=== PATIENT | male | born 1955 | race Caucasian/White ===

== ENCOUNTER 2017-05-14 08:39 | Outpatient (CLI) | payer MEDICARE ==
--- NOTE | 2017-05-14 11:58 | CT ---
CT OF THE ABDOMEN AND PELVIS WITH IV CONTRAST: INDICATION: History of prostate cancer with elevated PSA. TECHNIQUE: Multiple CT images were obtained of the abdomen and pelvis with IV and enteric contrast. Axial coron al reformatted images were constructed from the raw data. No CT comparisons of the abdomen and pelvi s are available. FINDINGS: ABDOMEN: The lung bases are clear. There is nodular contour to the liver with slight hypertrophy of the caudate lobe and left hepatic lo be consistent with changes of cirrhosis. There is a tiny hypodensity within the right hepatic lobe m easuring 1.1 cm that has Hounsfield characteristics on the postcontrast image most consistent with a small cyst. The adrenal glands and pancreas are normal-appearing. The spleen demonstrates a tiny hypodensity wit hin its posterior segment that is subcentimeter in size that likely reflects a cyst. The spleen is e nlarged measuring 14.1 cm. The kidneys are normal-appearing. No free fluid is evident. There are mild vascular calcifications noted involving the abdominopelvic vasculature. There is an enlarged aortocaval lymph node measuring 1.2 cm on image 46 of series 2. There is an add itional mildly prominent lymph node seen anterior to the IVC within the lower abdomen on image 54 of series 2 measuring 9 mm. No pathologically enlarged lymph nodes are seen within the pelvis. PELVIS: There is postsurgical change of a complete prostatectomy. There is a suprapubic catheter in place. There are some calcifications seen in the region of the prostatic bed and pelvic floor which may be r elated to prior therapy or surgery. There is a fat-containing periumbilical hernia. Some wall thickening involving the rectum which was likely related to therapy changes. The partially opacified small and large bowel appear within viraj l limits. There is a normal appendix in the right lower quadrant. There is diffuse osteopenia. No definite acute osseous abnormality is evident. There are prominent Schmorl's nodes seen involving the L1 vertebral level along its superior aspect. IMPRESSION: 1. Mildly prominent lymph nodes seen within the retroperitoneum. The largest measures up to 1.2 cm. Lymph node spread of disease within this location cannot be entirely excluded. Would recommend fol lowup examination in 6-8 weeks. 2. Cirrhosis with findings of mild portal hypertension and splenomegaly. 3. Small right hepatic lobe cyst. 4. Suprapubic catheter. POS: [facility]
[2017-05-14] MEDS ORDERED: Iopamidol 370 76% 100 ML VIAL ONE (12:01)
== END 2017-05-14 08:40 | disposition home or self-care (01) ==
LOC: CT 08:39
PROVIDERS: ATTEND Internal Medicine Hematology & Oncology
DX: C61 Malignant neoplasm of prostate (principal); K74.60 Unspecified cirrhosis of liver; K76.89 Other specified diseases of liver; Z96.0 Presence of urogenital implants
CPT/HCPCS: 74177

== ENCOUNTER 2017-05-16 09:15 | Outpatient (CLI) | payer MEDICARE ==
--- NOTE | 2017-05-16 14:14 | NM ---
NUCLEAR MEDICINE BONE SCAN WHOLE BODY: (SKELETAL SCINTIGRAPHY) 05/16/2017 HISTORY: A 62-year-old male with a history of prostate cancer and rising serum PSA levels. COMPARISON: Bone scan of 06/16/2014 at the [facility]. TECHNIQUE: IV injection of [id number]: 32.0 mCi 3 hour delayed whole body skeletal scintigraphy in anterior and posterior views. FINDINGS: The is a new finding of a small, round focus of increased uptake at the right lateral calvarium. There is asymmetrically increased uptake at the right ankle, consistent with degenerative changes, un changed since the prior study. There are no other areas of asymmetrically increased bone uptake, but activity in the suprapubic cath eter and drainage bag obscures most of the right femur on the frontal view. 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 PANTERA Perez POS: [facility]
== END 2017-05-16 09:16 | disposition home or self-care (01) ==
LOC: NM 09:15
PROVIDERS: ATTEND Internal Medicine Hematology & Oncology
DX: C61 Malignant neoplasm of prostate (principal)
CPT/HCPCS: 78306; A9503

== ENCOUNTER 2019-07-07 09:56 | Outpatient (CLI) | payer MEDICARE ==
--- NOTE | 2019-07-07 16:18 | NM ---
WHOLE BODY BONE SCAN: HISTORY: Left-sided chest pain after fall RADIOPHARMACEUTICAL: 28.9 mCi technetium-99m MDP injected intravenously. COMPARISON: 05/16/2017 FINDINGS: There is increased uptake in the anterior left lower ribs consistent with adjacent rib fractures. The re is also uptake in an anterior upper right rib consistent with a rib fracture. Uptake is seen in the patient's urostomy bag. The bag leaked during the procedure and there is a smal l focus of uptake anteriorly near the midline which likely is contamination rather than a lesion in the lumbar spine or sacrum. Tracer excretion through the kidneys is within normal limits. IMPRESSION: Bilateral rib fractures
== END 2019-07-07 09:57 | disposition home or self-care (01) ==
LOC: NM 09:56
PROVIDERS: ATTEND Internal Medicine Hematology & Oncology
DX: C61 Malignant neoplasm of prostate (principal); C79.51 Secondary malignant neoplasm of bone; R97.20 Elevated prostate specific antigen [PSA]; S22.43XA Multiple fractures of ribs, bilateral, initial encounter for closed fracture
CPT/HCPCS: 78306; A9503

== ENCOUNTER 2019-09-23 08:06 | Outpatient (CLI) | payer MEDICARE ==
--- NOTE | 2019-09-23 13:22 | NM ---
NUCLEAR MEDICINE BONE SCAN WHOLE BODY: (Skeletal scintigraphy) DATE: 09/23/2019 HISTORY: 64-year-old male with prostate cancer and rising PSA levels. TECHNIQUE: IV injection of technetium 99m-MDP: 32.9 mCi 3 hour delayed whole body skeletal scintigraphy in anterior and posterior views. COMPARISON: 07/07/2019 FINDINGS: The 3 successive foci of significantly increased uptake in left anterior fourth, fifth, and sixth rib s representing fractures, now have decreased degree of uptake representing progression of healing. The same is true for the focus of increased uptake at the far anterior aspect of the right second rib at the costochondral junction. There are no new foci of asymmetrically increased uptake that are particularly suspicious for bone me tastases. There is again contamination of the urostomy bag, and therefore additional oblique views and lateral views of the pelvis were obtained. IMPRESSION: No compelling evidence of skeletal metastasis.
== END 2019-09-23 08:07 | disposition home or self-care (01) ==
LOC: NM 08:06
PROVIDERS: ATTEND Internal Medicine Hematology & Oncology
DX: C61 Malignant neoplasm of prostate (principal); C79.51 Secondary malignant neoplasm of bone
CPT/HCPCS: 78306; A9503

== ENCOUNTER 2019-09-24 08:39 | Outpatient (CLI) | payer MEDICARE ==
--- NOTE | 2019-09-24 14:40 | CT ---
CT OF THE ABDOMEN AND PELVIS WITH IV CONTRAST: INDICATION: A 64-year-old male with a history of prostate cancer and elevated PSA. COMPARISON: Prior CT of the abdomen and pelvis dated May 14, 2017. Bone scan from 09/23/2019 was also review ed. FINDINGS: Lung bases are clear. Again seen is a cirrhotic morphology to the liver. The right hepatic lobe cyst is slightly larger me asuring 1.3 cm. Tiny subcentimeter cyst is seen with segment measuring 4 mm. The spleen measures 13.4 cm. The pancreas and adrenal glands are normal-appearing. No enlarged lymp h nodes are evident. Visualized gallbladder is within normal limits. Right and left kidney appear within normal limits. No free fluid or enlarged lymph nodes are evident within the retroperitoneum. There are mild vascular calcifications involving the abdominopelvic vas culature. Since the comparison examination, there has been an interval cystectomy and establishment of a right lower quadrant urostomy. There is asymmetric soft tissue nodularity seen at the base of the anterior pelvis, near the cystectomy site, on image 79 of series 2 measuring 3.4 x 2.9 cm. The unopacified colon is largely within normal limits. Small bowel anastomosis appears within normal limits in the right lower quadrant of the abdomen. The small bowel is of normal caliber. There is diffuse osteopenia. There is scattered degenerative and osteoarthritic change. There is a small bone island within the left L4 vertebral level. Mild end plate irregularity at T12 and L1 is s imilar-appearing, likely related to Schmorl's nodes. No suspicious osteoblastic metastatic lesion is evident. IMPRESSION: 1. Interval cystectomy and prostatectomy with establishment of the right lower quadrant urostomy whe n compared to the prior CT examination of the abdomen and pelvis dated 05/14/2017. There is a right asymmetric soft tissue nodular prominence involving the anterior pelvic floor, near the surgical site of the cystectomy, measuring 3.4 x 2.9 cm. Recurrent soft tissue mass versus scar cannot be exclude d. Comparison with any interval cross-sectional CT evaluation of the abdomen and pelvis would be hel pful to document stability or progression of disease. 2. Cirrhotic morphology of the liver with mild portal hypertension. There is enlarging cyst within the right hepatic lobe measuring up to 1.3 cm. POS: [facility]
== END 2019-09-24 08:40 | disposition home or self-care (01) ==
LOC: SCSCT 08:39
PROVIDERS: ATTEND Internal Medicine Hematology & Oncology
DX: C61 Malignant neoplasm of prostate (principal); C79.51 Secondary malignant neoplasm of bone; Z90.6 Acquired absence of other parts of urinary tract; K76.6 Portal hypertension; K76.89 Other specified diseases of liver; Z98.890 Other specified postprocedural states
CPT/HCPCS: 74177; 82565

== ENCOUNTER 2020-01-14 12:51 | Day surgery (SDC) | payer MEDICARE, OTHER ==
[2020-01-14] MEDS ORDERED: PEGFILGRASTIM-JMDB 6 MG/0.6 ML SYRINGE ONE ×2 (12:54→12:55)
[2020-01-14 13:11] VITALS: BP 148/86; TEMP 97.7
== END 2020-01-14 13:11 | disposition home or self-care (01) ==
LOC: ONC/OP 12:51
PROVIDERS: ATTEND Internal Medicine Hematology & Oncology
DX: C61 Malignant neoplasm of prostate (principal); C79.51 Secondary malignant neoplasm of bone
CPT/HCPCS: 96372; Q5108

== ENCOUNTER 2020-02-03 10:17 | Day surgery (SDC) | payer MEDICARE ==
[~2020-02-03 10:17] MED LIST: DOCEtaxel 160 MG in Sodium Chloride 0.9% 250 ML 250 ML IVPB SCH; Dexamethasone Sod Phosphate 10 MG, Ondansetron 2MG/ML MDV 10 MG in Sodium Chloride 0.9%... IVPB SCH
[2020-02-03] MEDS ORDERED: Sodium Chloride 0.9% 20 ML ONE (10:25)
[2020-02-03 11:43] VITALS: BP 137/76; TEMP 96.5
== END 2020-02-03 12:44 | disposition home or self-care (01) ==
LOC: ONC/OP 10:17
PROVIDERS: ATTEND Internal Medicine Hematology & Oncology
DX: Z51.11 Encounter for antineoplastic chemotherapy (principal); C61 Malignant neoplasm of prostate; C79.51 Secondary malignant neoplasm of bone
CPT/HCPCS: 96375; 96413; J1100; J2405; J7050; J9171

== ENCOUNTER 2020-02-04 12:49 | Day surgery (SDC) | payer MEDICARE ==
[~2020-02-04 12:49] MED LIST changes: -DOCEtaxel 160 MG in Sodium Chloride 0.9% 250 ML 250 ML IVPB SCH; -Dexamethasone Sod Phosphate 10 MG, Ondansetron 2MG/ML MDV 10 MG in Sodium Chloride 0.9%... IVPB SCH; +PEGFILGRASTIM-JMDB 6 MG/0.6 ML SYRINGE SQ SCH
[2020-02-04 13:03] VITALS: BP 134/78; TEMP 97.8
== END 2020-02-04 13:05 | disposition home or self-care (01) ==
LOC: ONC/OP 12:49
PROVIDERS: ATTEND Internal Medicine Hematology & Oncology
DX: C61 Malignant neoplasm of prostate (principal); C79.51 Secondary malignant neoplasm of bone
CPT/HCPCS: 96372; Q5108

== ENCOUNTER 2020-02-24 09:24 | Day surgery (SDC) | payer MEDICARE ==
[~2020-02-24 09:24] MED LIST changes: +DOCEtaxel 160 MG in Sodium Chloride 0.9% 250 ML 250 ML IVPB SCH; +Dexamethasone Sod Phosphate 10 MG, Ondansetron 2MG/ML MDV 10 MG in Sodium Chloride 0.9%... IVPB SCH; -PEGFILGRASTIM-JMDB 6 MG/0.6 ML SYRINGE SQ SCH
[2020-02-24] MEDS ORDERED: Sodium Chloride 0.9% 20 ML ONE (09:57)
[2020-02-24 10:30] VITALS: BP 139/73; TEMP 98.4
[2020-02-24] MEDS ORDERED: FLU VACC QS2020-21(6MOS UP)/PF 60 MCG/0.5 ML SYRINGE IM ONE (10:30)
== END 2020-02-24 11:38 | disposition home or self-care (01) ==
LOC: ONC/OP 09:24
PROVIDERS: ATTEND Internal Medicine Hematology & Oncology
DX: Z51.11 Encounter for antineoplastic chemotherapy (principal); C61 Malignant neoplasm of prostate; C79.51 Secondary malignant neoplasm of bone
CPT/HCPCS: 96375; 96413; J1100; J2405; J7050; J9171

== ENCOUNTER 2020-02-25 12:44 | Day surgery (SDC) | payer MEDICARE ==
[~2020-02-25 12:44] MED LIST changes: -DOCEtaxel 160 MG in Sodium Chloride 0.9% 250 ML 250 ML IVPB SCH; -Dexamethasone Sod Phosphate 10 MG, Ondansetron 2MG/ML MDV 10 MG in Sodium Chloride 0.9%... IVPB SCH; +PEGFILGRASTIM-JMDB 6 MG/0.6 ML SYRINGE SQ SCH
[2020-02-25 13:10] VITALS: BP 125/78; TEMP 98.1
== END 2020-02-25 13:10 | disposition home or self-care (01) ==
LOC: ONC/OP 12:44
PROVIDERS: ATTEND Internal Medicine Hematology & Oncology
DX: Z51.89 Encounter for other specified aftercare (principal); C61 Malignant neoplasm of prostate; C79.51 Secondary malignant neoplasm of bone
CPT/HCPCS: 96372; Q5108

== ENCOUNTER 2020-03-08 03:18 | Emergency (ER) | payer MEDICARE ==
[2020-03-08] MEDS ORDERED: Morphine 4 MG/ML VIAL ONE ×2 (03:50→05:36)
[2020-03-08] MEDS ORDERED: Ondansetron PF 4 MG/2 ML Vial ONE (03:50)
[2020-03-08] MEDS ORDERED: Morphine 2 MG/ML VIAL ONE (03:50)
[2020-03-08 04:02] LABS: #Lymphocytes 0.8 thou/uL (1.20-3.40); #Monocytes 0.4 thou/uL (0.11-0.59); %Basophils 0.7 % (0.0-1.0); %Eosinophils 0.4 % (0.0-10.0); %Neutrophils 79.9 % (42.0-75.0); Hemoglobin 12.2 g/dL (14.0-18.0); Mean Corpuscular HGB CONC 33.7 g/dL (32.0-36.0); Mean Corpuscular Hemoglobin 30.6 pg (27.0-31.0); Mean Corpuscular Volume 90.7 fL (78.0-98.0); Mean Platelet Volume 8.5 fL (7.4-10.4); Platelet Count 79 thou/uL (130-400); RBC Distribution Width 14.3 % (11.5-14.5); White Blood Cell (WBC) Count 6.3 thou/uL (4.8-10.8)
[2020-03-08 04:14] LABS: ALT (SGPT) 14 U/L (8-55); AST (SGOT) 18 U/L (5-34); Albumin 3.5 g/dL (3.4-4.8); Alkaline Phosphatase 84 U/L (40-110); Anion Gap 12 mmol/L (10-20); BUN (Urea Nitrogen) 13 mg/dL (8.4-25.7); Bilirubin, Total 0.7 mg/dL (0.2-1.2); Calc. Creatinine Clearance 0 mL/min (70-130); Calcium 8.4 mg/dL (7.8-10.44); Carbon Dioxide 24 mmol/L (23-31); Chloride 107 mmol/L (98-107); Estimated GFR-MDRD 74; Globulin 2.5 g/dL (2.4-3.5); Glucose 145 mg/dL (80-115); Potassium 3.8 mmol/L (3.5-5.1); Sodium 139 mmol/L (136-145)
[2020-03-08] MEDS ORDERED: HYDROcodone/Acetaminophen 5/325 mg Tablet ONE (05:28)
--- NOTE | 2020-03-08 08:53 | CT ---
PRELIMINARY REPORT/[facility]/EMERGENCY AFTER HOURS PROCEDURE: EXAM: CT Lumbar Spine, without Contrast DATE/ TIME: 03/08/2020, 4:33 AM INDICATION: Low back pain. H/O prostate cancer TECHNIQUE: Helical CT imaging was performed through the lumbar spine with coronal and sagittal recon structions generated and reviewed. Exam was performed using one or more of the following dose reduct ion techniques: automated exposure control, adjustment of the mA and/or kV according to patient size , or use of iterative reconstruction technique. COMPARISON: None. CT LUMBAR SPINE FINDINGS: Numbering assumes five lumbar-type vertebral bodies. There is no acute fr acture. Mild anterior wedging of the L1 vertebral body is seen. A 2.5 x 1.5 x 2.4 cm lucency in the L3 centrum is noted and has the appearance of a hemangioma. A deep Schmorl's node within the superi or endplate of L4 is noted. Asymmetric sclerosis in the right lateral aspect of the L5 centrum measu res 2.0 x 0.7 x 1.0 cm and is nonspecific. Lower lumbar facet arthropathy is seen. Visualized sacra l segments are fatty replaced likely related to XRT in this patient with history of prostate cancer. Mild atherosclerotic calcified plaque of the abdominal aorta is seen. There is [id number] rig ht hydroureteronephrosis with partial visualization of what may be a diverting ileal conduit. IMPRESSION: 1. CT shows no acute osseous abnormality within the lumbar spine. 2. Degenerative spondylosis. 3. Fatty replacement within sacral segments. 4. Right hydroureteronephrosis, incompletely seen. ELECTRONICALLY SIGNED BY: Nicolas Gallagher DO Mar 08, 2020 5:10:35 AM CDT This report is intended for review by the ordering physician only, in accordance of law. If you recei ve this report in error, please call [facility] at [phone]. FINAL REPORT CT LUMBAR SPINE WITHOUT CONTRAST: Date: 03/08/2020 HISTORY: Low back pain. COMPARISON: Reference made to bone scan dated 09/23/2019. Reference also made to an abdomen and pelvis CT dated 0 09/24/2019. FINDINGS/IMPRESSION: Findings and impression are concordant with the preliminary report by [facility]. 1. Similar appearance to mildly enlarged right periaortic lymph nodes at level of L3, with a short a xis measurement of 11.0 mm. 2. New from the 09/24/2019 examination is a superior end plate Schmorl's node of L4, which could be a source of the patient's pain as this may an acute Schmorl's node. 3. Intraosseous hemangioma of L3, a benign finding. POS: [facility]
== END 2020-03-08 06:33 | disposition home or self-care (01) ==
LOC: ERS 03:18
DX: C61 Malignant neoplasm of prostate (principal); M54.5 Low back pain; I10 Essential (primary) hypertension; F41.9 Anxiety disorder, unspecified; Z79.899 Other long term (current) drug therapy
CPT/HCPCS: 72131; 80053; 84153; 85025; 96374; 96375; 96376; 99284; J2270; 36415; J2405

== ENCOUNTER 2020-03-16 09:05 | Day surgery (SDC) | payer MEDICARE ==
[~2020-03-16 09:05] MED LIST changes: +DOCEtaxel 160 MG in Sodium Chloride 0.9% 250 ML 250 ML IVPB SCH; +Dexamethasone Sod Phosphate 10 MG, Ondansetron 2MG/ML MDV 10 MG in Sodium Chloride 0.9%... IVPB SCH; -PEGFILGRASTIM-JMDB 6 MG/0.6 ML SYRINGE SQ SCH
== END 2020-03-16 12:41 | disposition home or self-care (01) ==
LOC: ONC/OP 09:05
PROVIDERS: ATTEND Internal Medicine Hematology & Oncology
DX: Z51.11 Encounter for antineoplastic chemotherapy (principal); C61 Malignant neoplasm of prostate; C79.51 Secondary malignant neoplasm of bone
CPT/HCPCS: 36415; 80053; 82248; 83615; 84100; 84550; 96375; 96413; J1100; J2405; J7050; J9171

== ENCOUNTER 2020-03-17 13:19 | Day surgery (SDC) | payer MEDICARE ==
[~2020-03-17 13:19] MED LIST changes: -DOCEtaxel 160 MG in Sodium Chloride 0.9% 250 ML 250 ML IVPB SCH; -Dexamethasone Sod Phosphate 10 MG, Ondansetron 2MG/ML MDV 10 MG in Sodium Chloride 0.9%... IVPB SCH; +PEGFILGRASTIM-JMDB 6 MG/0.6 ML SYRINGE SQ SCH
[2020-03-17 13:43] VITALS: BP 139/85
== END 2020-03-17 13:42 | disposition home or self-care (01) ==
LOC: ONC/OP 13:19
PROVIDERS: ATTEND Internal Medicine Hematology & Oncology
DX: Z51.89 Encounter for other specified aftercare (principal); C61 Malignant neoplasm of prostate; C79.51 Secondary malignant neoplasm of bone
CPT/HCPCS: 96372; Q5108

== ENCOUNTER 2020-03-25 22:40 | Emergency (ER) | payer MEDICARE ==
[2020-03-25] MEDS ORDERED: Morphine 4 MG/ML VIAL ONE (23:18)
[2020-03-25] MEDS ORDERED: Ondansetron PF 4 MG/2 ML Vial ONE (23:18)
[2020-03-25] MEDS ORDERED: Lorazepam 2 MG/ML VIAL ONE (23:18)
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
[2020-03-26 00:51] LABS: ALT (SGPT) 13 U/L (8-55); AST (SGOT) 20 U/L (5-34); Albumin 3.1 g/dL (3.4-4.8); Alkaline Phosphatase 86 U/L (40-110); Anion Gap 17 mmol/L (10-20); BUN (Urea Nitrogen) 13 mg/dL (8.4-25.7); Bilirubin, Total 0.9 mg/dL (0.2-1.2); Calc. Creatinine Clearance 0 mL/min (70-130); Calcium 8.2 mg/dL (7.8-10.44); Carbon Dioxide 18 mmol/L (23-31); Chloride 103 mmol/L (98-107); Estimated GFR-MDRD 58; Globulin 2.5 g/dL (2.4-3.5); Glucose 122 mg/dL (80-115); Potassium 3.2 mmol/L (3.5-5.1); Protein, Total 5.6 g/dL (5.8-8.1); Sodium 135 mmol/L (136-145)
== END 2020-03-26 01:13 | disposition home or self-care (01) ==
LOC: ERS 22:40
DX: M54.5 Low back pain (principal); E86.0 Dehydration; F41.9 Anxiety disorder, unspecified; V89.2XXA Person injured in unspecified motor-vehicle accident, traffic, initial encounter
CPT/HCPCS: 36415; 72131; 80053; 96374; 96375; J2060; J2270; J2405

== ENCOUNTER 2020-04-06 10:36 | Day surgery (SDC) | payer MEDICARE ==
[~2020-04-06 10:36] MED LIST changes: +DOCEtaxel 160 MG in Sodium Chloride 0.9% 250 ML 250 ML IVPB SCH; +Dexamethasone Sod Phosphate 10 MG, Ondansetron 2MG/ML MDV 10 MG in Sodium Chloride 0.9%... IVPB SCH; -PEGFILGRASTIM-JMDB 6 MG/0.6 ML SYRINGE SQ SCH
[2020-04-06] MEDS ORDERED: Sodium Chloride 0.9% 20 ML ONE (11:14)
[2020-04-06 11:43] VITALS: BP 99/63
== END 2020-04-06 13:06 | disposition home or self-care (01) ==
LOC: ONC/OP 10:36
PROVIDERS: ATTEND Internal Medicine Hematology & Oncology
DX: Z51.11 Encounter for antineoplastic chemotherapy (principal); C61 Malignant neoplasm of prostate; C79.51 Secondary malignant neoplasm of bone
CPT/HCPCS: 36415; 80053; 82248; 83615; 84100; 84153; 84550; 96375; 96413; J1100; J2405; J7050; J9171

== ENCOUNTER 2020-04-07 12:58 | Day surgery (SDC) | payer MEDICARE ==
[~2020-04-07 12:58] MED LIST changes: -DOCEtaxel 160 MG in Sodium Chloride 0.9% 250 ML 250 ML IVPB SCH; -Dexamethasone Sod Phosphate 10 MG, Ondansetron 2MG/ML MDV 10 MG in Sodium Chloride 0.9%... IVPB SCH; +PEGFILGRASTIM-JMDB 6 MG/0.6 ML SYRINGE SQ SCH
== END 2020-04-07 13:52 | disposition home or self-care (01) ==
LOC: ONC/OP 12:58
PROVIDERS: ATTEND Internal Medicine Hematology & Oncology
DX: Z51.89 Encounter for other specified aftercare (principal); C61 Malignant neoplasm of prostate; C79.51 Secondary malignant neoplasm of bone
CPT/HCPCS: 96372; Q5108

== ENCOUNTER 2020-04-23 18:39 | Inpatient (IN) | payer MEDICARE ==
[~2020-04-23 18:39] MED LIST changes: +Iopamidol-370 76% 500 ML 1 ML ONE; -PEGFILGRASTIM-JMDB 6 MG/0.6 ML SYRINGE SQ SCH
[2020-04-23 19:16] LABS: #Lymphocytes 1.4 thou/uL (1.20-3.40); #Monocytes 0.7 thou/uL (0.11-0.59); %Basophils 0.5 % (0.0-1.0); %Eosinophils 0.2 % (0.0-10.0); %Lymphocytes 16.7 % (21.0-51.0); %Monocytes 8.1 % (0.0-10.0); %Neutrophils 74.5 % (42.0-75.0); Hemoglobin 10.6 g/dL (14.0-18.0); Mean Corpuscular HGB CONC 32.5 g/dL (32.0-36.0); Mean Corpuscular Hemoglobin 30.2 pg (27.0-31.0); Mean Corpuscular Volume 92.9 fL (78.0-98.0); Mean Platelet Volume 7.4 fL (7.4-10.4); Platelet Count 182 thou/uL (130-400); RBC Distribution Width 16.6 % (11.5-14.5); White Blood Cell (WBC) Count 8.1 thou/uL (4.8-10.8)
[2020-04-23] MEDS ORDERED: Fentanyl 100 MCG/2 ML VIAL ONE (19:17)
[2020-04-23] MEDS ORDERED: Cefepime 2 GM VIAL ONE (19:17)
[2020-04-23] MEDS ORDERED: Sodium Chloride 0.9% 100 ML ONE (19:18)
[2020-04-23 19:23] LABS: INR-International Normal Ratio 1.1; PTT 29.2 sec (22.9-36.1); Prothrombin Time 14.8 sec (12.0-14.7)
[2020-04-23 19:24] LABS: D-Dimer Test 3.06 *mcg/mL (0.27-0.43)
[2020-04-23 19:37] LABS: ALT (SGPT) 9 U/L (8-55); AST (SGOT) 20 U/L (5-34); Albumin 3.1 g/dL (3.4-4.8); Alkaline Phosphatase 82 U/L (40-110); Anion Gap 18 mmol/L (10-20); BUN (Urea Nitrogen) 23 mg/dL (8.4-25.7); Bilirubin, Total 0.6 mg/dL (0.2-1.2); CK (CPK) 45 U/L (30-200); Calc. Creatinine Clearance 0 mL/min (70-130); Calcium 8.7 mg/dL (7.8-10.44); Carbon Dioxide 18 mmol/L (23-31); Chloride 108 mmol/L (98-107); Estimated GFR-MDRD 57; Globulin 2.2 g/dL (2.4-3.5); Glucose 243 mg/dL (80-115); Lipase 32 U/L (8-78); Potassium 5.1 mmol/L (3.5-5.1); Protein, Total 5.3 g/dL (5.8-8.1); Sodium 139 mmol/L (136-145)
[2020-04-23] MEDS ORDERED: Vancomycin 1 GM/200 ML BAG ONE (19:50)
--- NOTE | 2020-04-23 20:54 | RAD ---
PORTABLE CHEST: Date: 04-23-2020 PROVIDED CLINICAL HISTORY: Fever, shortness of breath. FINDINGS: Comparison is made with 01-19-2020. Cardiac and mediastinal silhouette is within normal limits. No focal consolidation, pleural fluid, or pneumothorax apparent. Remote, healed left clavicular fracture. IMPRESSION: No evidence for an acute cardiopulmonary process. POS: [facility]
--- NOTE | 2020-04-23 21:51 | CT ---
CT OF THE CHEST WITH CONTRAST: Comparison: CT abdomen/pelvis 09-24-2019, CTA chest 11-04-2018 History: History of prostate cancer with a Ross II bag being treated with chemotherapy. Patient has i ncreasing blood coming out of urostomy. Metastatic disease. Technique: Multiple contiguous axial images obtained in a CTA Of the chest with contrast, performed f or pulmonary embolism protocol. 3D and MIP reformations. 3D MIP reformats and direct coronal reforma ts were performed. FINDINGS: The pulmonary arteries are well opacified without filling defects to suggest pulmonary emboli. The he art is normal in size. There is hypertrophy in the left ventricular wall. There is a small pericardi al effusion. No mik or mediastinal lymphadenopathy are appreciated. There is a 6 mm stable nodule in the posterior aspect of the left lower lobe. No other pulmonary nodu les are seen. No pneumothorax or pleural effusions are seen. No focal infiltrates are seen. There is a round subcutaneous mass in the right thoracic posterior soft tissues which is associated w ith skin surface and relatively stable when compared to the prior examination. No adenopathy is seen. Degenerative changes are seen in the spine. Please see dedicated abdominal CT for findings in the low er diaphragm. IMPRESSION: 1. No evidence of pulmonary thromboembolism. 2. Stable lower lobe pulmonary nodule. 3. Small pericardial effusion. POS: [facility]
[2020-04-23] MEDS ORDERED: Labetalol HCl 100 MG/20 ML VIAL ONE (21:55)
[2020-04-23] MEDS ORDERED: Lorazepam 2 MG/ML VIAL ONE (22:04)
--- NOTE | 2020-04-23 22:13 | CT ---
CT ABDOMEN AND PELVIS WITH IV CONTRAST: Date: 04/23/2020 PROVIDED CLINICAL HISTORY: History of prostate cancer, blood in urostomy bag. FINDINGS: Comparison made with study dated 09/24/2019. There is a partially visualized noncalcified left lower lobe pulmonary nodule measuring at least 4.0 mm. Peripheral nodular contour of the liver compatible with cirrhosis redemonstrated. Hepatic cysts are a gain seen. Changes of prior cystectomy with urinary diversion and urostomy noted. There is right hydronephrosis and right hydroureter, mild. There is gas within the left renal collecting system, without evidence f or hydronephrosis or hydroureter on the left. The ileal conduit appears nondilated. There is a normal appearance to the spleen, pancreas, and adrenal glands. There is no bowel dilatation, localized inflammatory fat stranding, free fluid, or free air apparent. There is no evidence for appendicitis. There is no evidence for regional lymph node enlargement. Soft tissue density at the anterior aspect of the pelvis posterior to the symphysis pubis redemonstrated, not significantly changed with respect to prior. IMPRESSION: 1. Mild right hydronephrosis and hydroureter, presumably on the basis of reflux and not unusual in p atients with urinary diversion. Collecting system gas on the left is also presumably on the basis of ileal conduit. 2. Changes of cirrhosis are redemonstrated. 3. Nonspecific at least 4.0 mm left lower lobe pulmonary nodule. POS: [facility]
[2020-04-23 22:14] LABS: Hemoglobin 9.3 g/dL (14.0-18.0); Platelet Count 175 thou/uL (130-400)
[2020-04-24] MEDS ORDERED: Ondansetron ODT 4 MG TAB SL PRN (00:15)
[2020-04-24] MEDS ORDERED: Ondansetron PF 4 MG/2 ML Vial IVP PRN (00:15)
[2020-04-24] MEDS: Lactated Ringer's 1,000 ML IV SCH ×2 (00:53→10:53)
--- NOTE | 2020-04-24 01:54 | PDOC.HHP ---
Hospitalist HPI - History of Present Illness sob, urostomy bleeding History of Present Illness: Case of an 65y/o male with a pmhx of prostate CA, liver cirrhosis due to hep c, hld and hypertension who comes to hospital due to due to general weakness general malaise and urostomy bleeding. patient states he was on his usuals state of health until this weekend when he started with the symptoms. he does reports that before feeling unwell and urostomy becoming bloody he noted his urine output decreased and becoming cloudy and coca cola colored. he states this has happened before when it gets infected but that it has never become bloody as this time. patient currently on chemo his las tx was on he is followed by Dr. Schmidt. he denies any fever chills nausea vomiting diarriha abd pain or chest pain, he did complain of dyspnea especially on exertion. Hospitalist ROS - Review of Systems All other systems reviewed; all pertinent +/- noted in HPI/Subj - Medication Medications: Active Medications Generic Name Dose Route Start Last Admin Trade Name Freq PRN Reason Stop Dose Admin Lactated Ringer's 1,000 mls @ 120 mls/hr 04/24/20 00:15 04/24/20 00:53 Lactated Ringer's IV 04/24/20 09:30 1,000 mls .[id number] [facility] Administration Hospitalist History - Past Surgical History Other Surgical History: ilesotomy divergance bladder removed prostatectomy - Family History Family History: reports: no pertinent history - Social History Smoking Status: Never smoker Alcohol: reports: None Drugs: reports: none - Exam General Appearance: ill appearing Eye: PERRL, anicteric sclera ENT: normocephalic atraumatic, no oropharyngeal lesions Neck: supple, symmetric, no JVD, no thyromegaly Heart: no murmur, no gallops, no rubs, normal peripheral pulses Heart - other findings: tachycardic Respiratory: CTAB, no wheezes, no rales, no ronchi Gastrointestinal: soft, non-tender, non-distended, normal bowel sounds Gastrointestinal - other findings: urostomy with cloudy bloody urine Extremities: no cyanosis, no clubbing, no edema Skin: normal turgor, no lesions, no rashes Neurological: cranial nerve grossly intact, normal sensation to touch, no weakness Musculoskeletal: normal tone, normal strength, no muscle wasting Psychiatric: normal affect, normal behavior, A&O x 3 Hospitalist Results - Labs Result Diagrams: 04/23/20 22:02 04/23/20 19:00 Lab results: WBC 8.1 thou/uL (4.8-10.8) 04/23/20 19:00 Hgb 9.3 g/dL (14.0-18.0) L 04/23/20 22:02 Hct 28.7 % (42.0-52.0) L 04/23/20 22:02 MCV 92.9 fL (78.0-98.0) 04/23/20 19:00 Plt Count 175 thou/uL (130-400) 04/23/20 22:02 Neutrophils % 74.5 % (42.0-75.0) 04/23/20 19:00 Sodium 139 mmol/L (136-145) 04/23/20 19:00 Potassium 5.1 mmol/L (3.5-5.1) 04/23/20 19:00 Chloride 108 mmol/L (98-107) H 04/23/20 19:00 Carbon Dioxide 18 mmol/L (23-31) L 04/23/20 19:00 BUN 23 mg/dL (8.4-25.7) 04/23/20 19:00 Creatinine 1.28 mg/dL (0.7-1.3) 04/23/20 19:00 Glucose 243 mg/dL (80-115) H 04/23/20 19:00 Lactic Acid 3.3 mmol/L (0.5-2.2) H 04/23/20 22:02 Calcium 8.7 mg/dL (7.8-10.44) 04/23/20 19:00 Total Bilirubin 0.6 mg/dL (0.2-1.2) 04/23/20 19:00 AST 20 U/L (5-34) 04/23/20 19:00 ALT 9 U/L (8-55) 04/23/20 19:00 Alkaline Phosphatase 82 U/L (40-110) 04/23/20 19:00 Creatine Kinase 45 U/L (30-200) 04/23/20 19:00 Troponin I 0.011 ng/mL (< 0.028) 04/23/20 19:00 B-Natriuretic Peptide 34.7 pg/mL (0-100) 04/23/20 19:00 Serum Total Protein 5.3 g/dL (5.8-8.1) L 04/23/20 19:00 Albumin 3.1 g/dL (3.4-4.8) L 04/23/20 19:00 Lipase 32 U/L (8-78) 04/23/20 19:00 Hospitalist H&P A/P - Problem (1) Sepsis Code(s): A41.9 - SEPSIS, UNSPECIFIED ORGANISM Status: Acute (2) Complication of urostomy Code(s): N99.528 - OTHER COMP OF INCONTINENT EXTERNAL STOMA OF URINARY TRACT Status: Acute (3) Prostate cancer Code(s): C61 - MALIGNANT NEOPLASM OF PROSTATE Status: Acute (4) HTN (hypertension) Code(s): I10 - ESSENTIAL (PRIMARY) HYPERTENSION Status: Acute (5) Diabetes Code(s): E11.9 - TYPE 2 DIABETES MELLITUS WITHOUT COMPLICATIONS Status: Acute - Plan Plan: Case of an 65y/o male with the stated pmhx who presents due to blood in his urostomy bag urostomay bag bleeding - hx of multiple days bleeding into urostomy bag - last recorded hg was 12, arrived 10 then recheck again and it was 9 - was transufused 1 prbc at ed - npo after midnight in case any urologic procedure is needed - will check hg q 6 hrs -likely related to severe infection, seems to have improve after starting abx sepsis secondary to c uti - elevated tachycardic + elevated LA 3.3 + hypotension with likely source of infection urostomy site - given vanc + cefepime and ED - will continue with levaquin - f/u blood cultures - f/u LA - no acute or concerning findings in cta/cxr/abd ct htn - holding htn in setting of sirs and bleeding prostate ca - on chemo - last tx 04/06/20 - onoclogy consult dm -ac+ss
[2020-04-24 01:59] VITALS: BMI 34.2
[2020-04-24] MEDS: Sodium Chloride 0.9% 1,000 ML IV SCH ×4 (03:09→19:58)
[2020-04-24] MEDS ORDERED: HumaLOG 300 UNITS/3 ML VIAL SC PRN (03:40)
[2020-04-24] MEDS ORDERED: Dextrose 5% in Water 1,000 ML IV PRN (03:40)
[2020-04-24] MEDS ORDERED: Dextrose 50% Abboject 50 ML SYRINGE SLOW IVP PRN (03:40)
[2020-04-24 04:24] LABS: Lactic Acid 3.2 mmol/L (0.5-2.2)
[2020-04-24 04:25] LABS: SARS-CoV-2 MS2 Positive; SARS-CoV-2 N Gene Negative; SARS-CoV-2 S Gene Negative; SARS-CoV-2 by NAA Not Detected (NotDetected); SARS-CoV-2 orf1ab Negative
[2020-04-24 06:33] LABS: Hemoglobin 9.4 g/dL (14.0-18.0)
[2020-04-24] MEDS ORDERED: Vancomycin 1 GM in Premix Bag 1 BAG IVPB SCH (08:00)
[2020-04-24] MEDS: Vancomycin HCl 1.25 GM in Sodium Chloride 0.9% 250 ML 250 ML IVPB SCH ×2 (10:50→19:59)
--- NOTE | 2020-04-24 18:50 | PDOC.HOSPP ---
- Subjective Encounter Date: 04/24/20 Encounter Time: 18:40 Subjective: f/u for sepsis due to UTI/urostomy bleeding s/p 1u PRBC's. Receiving Vancomycin/Levaquin currently. Overall feels better. - Objective Vital Signs & Weight: Vital Signs (12 hours) Temp Pulse Ox 04/24/20 12:07 98 04/24/20 08:05 97.7 F 04/24/20 08:00 97 Weight Weight 249 lb 4 oz Most Recent Monitor Data Heart Rate from ECG 109 NIBP 104/76 NIBP BP-Mean 85 Respiration from ECG 22 SpO2 100 I&O: 04/23/20 04/24/20 04/25/20 06:59 06:59 06:59 Intake Total 2250 1520 Output Total 325 600 Balance 1925 920 Result Diagrams: 04/24/20 06:02 04/23/20 19:00 Additional Labs: Accuchecks 04/24/20 04/24/20 18:22 05:49 POC Glucose 159 H 120 H Microbiology 04/23/20 19:08 Venous blood - Right Arm Blood Culture - Preliminary Specimen has been received and culture in progress. No Growth to date. 04/23/20 19:08 Venous blood - Left Arm Blood Culture - Preliminary Specimen has been received and culture in progress. No Growth to date. Laboratory Tests 04/23/20 04/23/20 04/23/20 19:00 19:00 22:02 Hgb 10.6 L D-Dimer 3.06 H Lactic Acid 3.3 H SARS-CoV-2 (PCR) 04/23/20 04/23/20 04/24/20 22:02 23:45 03:42 Hgb 9.3 L D-Dimer Lactic Acid 3.2 H SARS-CoV-2 (PCR) Not Detected Radiology Reviewed by me: Yes (CTA chest - no PE) EKG Reviewed by me: Yes (Tele - Sinus tachycardia) Hospitalist ROS - Medication Medications: Active Medications Generic Name Dose Route Start Last Admin Trade Name Freq PRN Reason Stop Dose Admin Sodium Chloride 1,000 mls @ 70 mls/hr 04/24/20 02:00 04/24/20 03:09 Normal Saline 0.9% IV 1,000 mls .[id number] [facility] Administration Levofloxacin 750 mg/ Device 150 mls @ 100 mls/hr 04/24/20 02:00 04/24/20 03:10 IVPB 150 mls Q24HR [facility] Administration Vancomycin HCl 1.25 gm/ Sodium 250 mls @ 166.667 mls/hr 04/24/20 08:00 04/24/20 10:50 Chloride IVPB 250 mls 0800,1999 [facility] Administration - Exam General Appearance: NAD, awake alert Eye: PERRL, anicteric sclera ENT: normocephalic atraumatic, no oropharyngeal lesions Neck: supple, symmetric, no JVD, no thyromegaly, no lymphadenopathy Heart: no murmur, no gallops, no rubs, normal peripheral pulses Heart - other findings: S1, S2 tachycardic Respiratory: CTAB, no wheezes, no rales, no ronchi, normal chest expansion Gastrointestinal: soft, non-tender, non-distended, normal bowel sounds Gastrointestinal - other findings: urostomy in place, clear urine in Phan bag Extremities: no cyanosis, no clubbing, no edema Skin: normal turgor Neurological: cranial nerve grossly intact, no new deficit Musculoskeletal: normal tone, normal strength, no muscle wasting Psychiatric: normal affect, A&O x 3 Hosp A/P (1) Sepsis due to gram-negative UTI Code(s): A41.50 - GRAM-NEGATIVE SEPSIS, UNSPECIFIED; N39.0 - URINARY TRACT INFECTION, SITE NOT SPECIFIED Status: Acute Plan: Continue Levaquin/Vancomycin pending Ucx results, IVF's (2) Acute blood loss anemia Code(s): D62 - ACUTE POSTHEMORRHAGIC ANEMIA Status: Acute Plan: s/p 1u PRBC's, serial H/H monitoring, avoid anticoagulation and NSAIDs (3) Complication of urostomy Code(s): N99.528 - OTHER COMP OF INCONTINENT EXTERNAL STOMA OF URINARY TRACT Status: Acute Plan: Secondary to UTI, continue IV abx, monitor outputs, appreciate Urology assistance (4) Metabolic acidosis Code(s): E87.2 - ACIDOSIS Status: Acute (5) Prostate cancer Code(s): C61 - MALIGNANT NEOPLASM OF PROSTATE Status: Chronic Plan: Will resume outpt chemotherapy after completing abx course - Plan continue antibiotics, social services coordinator, out of bed/ambulate, DVT proph w/SCDs Stable currently Continue Levaquin/Vancomycin Continue IVF's Await final Ucx results Appreciate Urology assistance Avoid anticoagulants AM lab: BMP, CBC
[2020-04-24] MEDS ORDERED: Cyclobenzaprine 10 MG TAB PO PRN (18:58)
[2020-04-24] MEDS ORDERED: traMADol HCl 50 MG TAB PO PRN (18:59)
[2020-04-24] MEDS ORDERED: Melatonin 3 MG TAB PO PRN (19:11)
--- NOTE | 2020-04-24 20:03 | CON ---
DATE OF CONSULTATION: 04/24/2020 REASON FOR CONSULTATION: Hematuria. CHIEF COMPLAINT: Blood in urostomy bag. HISTORY OF PRESENT ILLNESS: This is a 65-year-old male with a history of radical prostatectomy with Dr. Lizama with complicated bladder neck contracture eventually undergoing simple cystectomy with ileal conduit. His prostate cancer has advanced and he is now on chemotherapy since December. He tells me that beginning last or Friday, he began to have blood in his urine and over the weekend noted clots in the bag, at which point, he decided to present to the hospital yesterday. He also developed weakness and malaise. He denies flank pain or fevers. He also denies nausea, diarrhea, or abdominal pain. PAST MEDICAL HISTORY: Prostate cancer, hepatitis C with cirrhosis, hyperlipidemia, hypertension, diabetes. PAST SURGICAL HISTORY: Robotic prostatectomy, simple cystectomy with ileal conduit. FAMILY HISTORY: Reviewed, noncontributory. SOCIAL HISTORY: Nonsmoker. No substance abuse. REVIEW OF SYSTEMS: 12-point review of systems is negative except as mentioned in my HPI. PHYSICAL EXAMINATION: GENERAL: No acute distress. Conversant. HEENT: Head, normocephalic and atraumatic. Extraocular movements intact. Sclerae anicteric. NECK: Supple. Trachea midline. RESPIRATORY: Unlabored breathing. Symmetric chest expansion. HEART: Tachycardic. Regular rhythm. ABDOMEN: Soft, nontender, nondistended. No flank tenderness. : Urostomy somewhat stenotic, but draining clear urine at this point with drainage of bag connected to the urostomy appliance. EXTREMITIES: Without clubbing, cyanosis, or edema. SKIN: Warm and dry. NEUROLOGIC: Alert and oriented x3. PSYCHIATRIC: Normal mood and affect. LABORATORY DATA: Reviewed. Lactate 3.3 on admission last night. Creatinine 1.28. Hemoglobin 10.6 on admission, 9.3 and 9.4 on serial checks overnight. Microbiology; blood cultures pending. I do not see that a urine culture was sent. CT abdomen and pelvis reviewed. Mild right hydronephrosis with small focus of air in the left kidney. ASSESSMENT AND PLAN: Sepsis secondary to urinary tract infection, gross hematuria, now resolved; presence of urostomy; history of cystectomy; and prostatectomy. Agree with vancomycin and Levaquin. I expect that this is likely bacteria from his conduit enabled by immunosuppression. If urine culture was not sent and he improves clinically with negative blood cultures, we will transition to Levaquin alone. There is no need for serial hemoglobin and hematocrit checks as his urine has already cleared and his hemoglobin was stable overnight. Repeat labs in the morning. I will continue to follow and arrange outpatient followup at discharge. Job ID: [id number]
--- NOTE | 2020-04-24 22:00 | CON ---
DATE OF CONSULTATION: REASON FOR CONSULT: Prostate cancer. HISTORY OF PRESENT ILLNESS: Mr. Castillo is a 65-year-old gentleman, who has metastatic prostate cancer, he was diagnosed in 2017. He has progressed through Xtandi and Zytiga and is currently receiving chemotherapy with IV Taxotere. He received cycle 5 on April 06. He did receive Neulasta support. He has been tolerating treatment well. He has bladder outlet obstruction and requiring suprapubic catheter and cystectomy. Over the last several days, he began to have increasing blood in his urine to the point where he clogged up and was presented to the emergency room yesterday. He sees Dr. Reich. He was felt to have urinary tract infections, so he was started on IV vancomycin and cefepime. He did have an elevated lactic acid at 3.3. He has been getting IV hydration and is feeling much better today. He is due for cycle 6 of chemo this week. PAST MEDICAL HISTORY: 1. Metastatic prostate cancer. 2. Cirrhosis from hepatitis C. 3. Chronic low back pain. 4. Diabetes mellitus type 2. 5. Hypertension. 6. High cholesterol. 7. Arthritis. 8. Hemorrhoids. 9. Urethral stricture, status post cystectomy. 10. Osteoporosis. PAST SURGICAL HISTORY: Radical prostatectomy, shoulder repair, cystectomy with urethrotomy. FAMILY HISTORY: Sibling has colon, bladder, and prostate cancer. SOCIAL HISTORY: , has one child. Lives alone. Former smoker. No alcohol or illicit drug use. ALLERGIES: NO KNOWN DRUG ALLERGIES. HOME MEDICATIONS: 1. Amlodipine. 2. Benazepril. 3. Celecoxib. 4. Dexamethasone. 5. Flexeril. 6. Lipitor. 7. Melatonin. 8. Zofran. 9. Protonix. REVIEW OF SYSTEMS: Positive for fatigue, back pain, and blood in urine. PHYSICAL EXAMINATION: VITAL SIGNS: Temperature is 97.7, pulse is 102, respiratory rate 23, blood pressure is 94/61. He is 97% on room air. GENERAL: A well-developed, well-nourished male, in no acute distress. HEENT: Normocephalic, atraumatic. Pupils are equal and reactive to light. NECK: Supple. CV: Regular rate and rhythm. He is tachycardic. LUNGS: Clear anterior. ABDOMEN: Obese, there is urostomy in place with yellow urine to a Phan catheter. EXTREMITIES: No clubbing or cyanosis. SKIN: No rash. NEUROLOGICAL: Nonfocal. PERTINENT LABORATORY DATA AND X-RAYS: Current WBCs 8.1, hemoglobin 9.4, hematocrit 29.1, platelet count is 182,000, 75% neutrophils, 17% lymphocytes. PT is 14.8, INR is 1.1, PTT is 29.2. D-dimer is 3. Sodium 139, potassium 5.1, chloride 108, CO2 is 18, BUN is 23, creatinine 1.28, lactic acid 3.2, calcium 8.7, bilirubin 0.6, AST is 20, ALT is 9, alkaline phosphatase is 82, creatine kinase is 45. Troponin negative. BNP is 34. Serum total protein 5.3, albumin 3.1, globulin 2.2, lipase 32. COVID PCR negative. CT angio showed no evidence of pulmonary embolism. He has a stable pulmonary nodule and a small pleural effusion. ASSESSMENT: 1. Anemia secondary to hematuria and chemotherapy. 2. Prostate cancer, on chemotherapy. 3. Hematuria. 4. Possible sepsis. DISCUSSION: Patient has been started on antibiotics. He is feeling better. He remains tachycardic with a blood pressure in the 90s. Dr. Reich has seen the patient. His hematuria appears to be resolved. He has responded well to Taxotere IV chemotherapy and is due for a dose this week, that will be postponed at least until next week. We will follow his CBC. I discussed this with the patient who is in agreement. We will discuss with Dr. Schmidt. We will follow along with his hospitalization. Thank you for the consult. Job ID: [id number]
[2020-04-24] MEDS ORDERED: Lidocaine 2% Viscous Solution 10 ML, Aluminum & Magnesium Hydroxide 30 ML SSW SCH (23:45)
[2020-04-25 04:16] LABS: #Lymphocytes 0.7 thou/uL (1.20-3.40); #Monocytes 0.5 thou/uL (0.11-0.59); #Neutrophils 2.8 thou/uL (1.40-6.50); %Basophils 0.5 % (0.0-1.0); %Eosinophils 0.8 % (0.0-10.0); %Lymphocytes 18.1 % (21.0-51.0); %Monocytes 11.7 % (0.0-10.0); Hemoglobin 8.6 g/dL (14.0-18.0); Mean Corpuscular HGB CONC 33.1 g/dL (32.0-36.0); Mean Corpuscular Hemoglobin 30.7 pg (27.0-31.0); Mean Corpuscular Volume 92.7 fL (78.0-98.0); Mean Platelet Volume 7.3 fL (7.4-10.4); Platelet Count 118 thou/uL (130-400); Platelet Morphology Comment Appears Decreased; RBC Distribution Width 17.1 % (11.5-14.5)
[2020-04-25 04:17] LABS: Anion Gap 14 mmol/L (10-20); BUN (Urea Nitrogen) 17 mg/dL (8.4-25.7); Calc. Creatinine Clearance 139 mL/min (70-130); Calcium 7.6 mg/dL (7.8-10.44); Carbon Dioxide 17 mmol/L (23-31); Chloride 113 mmol/L (98-107); Estimated GFR-MDRD 89; Glucose 116 mg/dL (80-115); Potassium 4.5 mmol/L (3.5-5.1); Sodium 139 mmol/L (136-145)
[2020-04-25 07:42] LABS: Vancomycin, Trough 18.6 ug/mL
[2020-04-25] MEDS: Sodium Chloride 0.9% 1,000 ML IV SCH (10:02)
[2020-04-25] MEDS: Vancomycin HCl 1.25 GM in Sodium Chloride 0.9% 250 ML 250 ML IVPB SCH (11:50)
[2020-04-25 12:06] VITALS: TEMP 97.4
--- NOTE | 2020-04-25 13:37 | PRG ---
DATE OF SERVICE: 04/25/2020 SUBJECTIVE: No acute events overnight. No further hematuria. He denies fevers, flank pain, or nausea. OBJECTIVE: GENERAL: Afebrile, mild tachycardia overnight. Good urine output, bowel movement x1. No acute distress. LUNGS: Unlabored breathing. Symmetric chest expansion. HEART: Regular rate and rhythm. ABDOMEN: Soft, nontender, nondistended. Conduit healthy. Draining clear urine. EXTREMITIES: No peripheral edema. SKIN: Warm and dry. LABORATORY DATA: Reviewed. Hemoglobin 8.6. Creatinine 0.87. Both blood cultures, no growth. Urine culture seems to not have been sent. ASSESSMENT AND PLAN: Hospital day 3, sepsis secondary to urinary tract infection, pyelonephritis, history of cystectomy and prostatectomy with ileal conduit. Given his negative blood cultures, we can likely transition to oral Levaquin for two weeks outpatient. Given his clinical improvement, I do not think any further imaging is warranted. He will follow up with me in 4 weeks. Job ID: [id number]
--- NOTE | 2020-04-26 02:13 | DIS ---
DATE OF ADMISSION: 04/23/2020 DATE OF DISCHARGE: 04/25/2020 DISCHARGE DIAGNOSES: 1. Sepsis secondarily to urinary tract infection, organism not identified. 2. Acute blood loss anemia, status post 1 unit of packed red blood cells due to urostomy bleeding, resolved. 3. Metabolic acidosis, mild. 4. Prostate carcinoma, status post prostatectomy with urostomy. 5. Hypertension, stable. CONSULTATIONS: Dr. Reich with Urology Service. Medical Oncology Service. PERTINENT LABORATORY AND X-RAY FINDINGS: Carbon dioxide level ranged between 17 to 18. Lactic acid level ranged between 3.2 to 3.3. BNP 35. Lipase 32. CBC showed a white blood cell count ranging between 4.0 to 8.1, hemoglobin ranged between 8.6 to 10.6, platelet count ranged between 118 to 182. D-dimer 3.06. COVID-19 PCR not detected, 04/23/2020. Blood cultures x2 dated 04/23/2020, showed no growth at 48 hours. Urine culture not performed. Portable chest x-ray dated 04/23/2020, showed no acute cardiopulmonary process. CT of the abdomen and pelvis dated 04/23/2020, showed mild right hydroureteronephrosis. Cirrhotic changes of the liver. CT angiogram of the chest dated 04/23/2020, showed no evidence for pulmonary embolus. Stable lower lobe pulmonary nodule. HOSPITAL COURSE: The patient initially presented with urostomy bleeding in the context of known prostate cancer status post prostatectomy with urostomy placement. The patient had noted increased blood from the urostomy as well as cloudy urine over the last 4 to 5 days prior to this evaluation. The patient is also currently receiving chemotherapy, most recently 04/06/2020 for prostate cancer. The patient met sepsis criteria and was placed on broad-spectrum IV antibiotic therapy with vancomycin and cefepime. The patient also received IV fluids and general sepsis protocol. Urine culture was not performed, however, blood cultures showed no growth as stated previously. The patient was evaluated by the Urology Service due to urostomy bleeding. However, recommendations were to continue therapy directed at potential urinary tract infection as the underlying source. The patient's urine cleared with supportive management, IV fluids, and IV antibiotics. The patient did receive 1 unit of packed red blood cells with stable hemoglobins throughout the remainder of the hospital course. Overall, the patient did remain clinically stable during the hospital course, tolerating regular oral intake with stable vital signs. I have examined the patient at the time of discharge and discussed followup instructions. The patient verbalizes understanding and agreement, ready for discharge on 04/25/2020. DISCHARGE MEDICATIONS: 1. Amlodipine/benazepril 10/20 mg one tablet p.o. daily. 2. Celebrex 200 mg p.o. daily. 3. dexamethasone p.r.n. 4. Flexeril 10 mg p.o. t.i.d. p.r.n. 5. FOLFIRI per Medical Oncology. 6. Lipitor 10 mg p.o. at bedtime. 7. Melatonin 10 mg p.o. at bedtime p.r.n. 8. Protonix 40 mg p.o. daily. 9. Taxotere q.21 days. 10. Levaquin 750 mg p.o. daily x14 days. FOLLOWUP: The patient may follow up with Dr. Michael Reich. The patient will follow up with Dr. Siddhartha Wu for primary care services. CONDITION ON DISCHARGE: Stable. ACTIVITY: Ad-jess. DIET: Heart healthy. CODE STATUS: Full. DISPOSITION: To home, 04/25/2020. TIME SPENT: Total time preparing and coordinating discharge, 32 minutes. Job ID: [id number]
== END 2020-04-25 17:08 | disposition home or self-care (01) | DRG 698 ==
LOC: ERS 18:39 → IMCU/EMU 22:39
PROVIDERS: ADMIT Internal Medicine; ATTEND Internal Medicine
PROC: 30233N1 Transfusion of Nonautologous Red Blood Cells into Peripheral Vein, Percutaneous Approach (ICD-10-PCS; principal; 2020-04-24)
DX: N99.521 Infection of incontinent external stoma of urinary tract (principal); A41.50 Gram-negative sepsis, unspecified; D62 Acute posthemorrhagic anemia; E87.2 Acidosis; N12 Tubulo-interstitial nephritis, not specified as acute or chronic; Y83.9 Surgical procedure, unspecified as the cause of abnormal reaction of the patient, or of later complication, without mention of misadventure at the time of the procedure; F41.9 Anxiety disorder, unspecified; K74.60 Unspecified cirrhosis of liver; E78.5 Hyperlipidemia, unspecified; G89.29 Other chronic pain; M54.9 Dorsalgia, unspecified; C61 Malignant neoplasm of prostate; I10 Essential (primary) hypertension; E11.9 Type 2 diabetes mellitus without complications; Z92.21 Personal history of antineoplastic chemotherapy; Z79.899 Other long term (current) drug therapy; Z79.51 Long term (current) use of inhaled steroids; Z98.890 Other specified postprocedural states; Z90.79 Acquired absence of other genital organ(s); Z87.891 Personal history of nicotine dependence; M81.0 Age-related osteoporosis without current pathological fracture; M19.90 Unspecified osteoarthritis, unspecified site; D64.81 Anemia due to antineoplastic chemotherapy; Z20.828 Contact with and (suspected) exposure to other viral communicable diseases; N99.520 Hemorrhage of incontinent external stoma of urinary tract
CPT/HCPCS: 36415; 36416; 36430; 71045; 71275; 74177; 80048; 80053; 80202; 82550; 83605; 83690; 83880; 84484; 85014; 85018; 85025; 85379; 85610; 85730; 86850; 86900; 86901; 87040; 87635; 93005; 96365; 96374; 96375; J0692; J1956; J2060; J3010; J3370; J3490; J7050; P9016; Q9967; U0003

== ENCOUNTER 2020-05-04 10:03 | Day surgery (SDC) | payer MEDICARE ==
[~2020-05-04 10:03] MED LIST changes: +DOCEtaxel 160 MG in Sodium Chloride 0.9% 250 ML 250 ML IVPB SCH; +Dexamethasone 10 MG, Ondansetron 2MG/ML MDV 10 MG in Sodium Chloride 0.9% 50 ML IVPB SCH; +Dexamethasone Sod Phosphate 10 MG, Ondansetron 2MG/ML MDV 10 MG in Sodium Chloride 0.9%... IVPB SCH; -Iopamidol-370 76% 500 ML 1 ML ONE
[2020-05-04] MEDS ORDERED: Sodium Chloride 0.9% 20 ML ONE (10:32)
[2020-05-04 10:40] VITALS: BP 129/79; TEMP 97.8
== END 2020-05-04 12:24 | disposition home or self-care (01) ==
LOC: ONC/OP 10:03
PROVIDERS: ATTEND Internal Medicine Hematology & Oncology
DX: Z51.11 Encounter for antineoplastic chemotherapy (principal); C61 Malignant neoplasm of prostate; C79.51 Secondary malignant neoplasm of bone
CPT/HCPCS: 36415; 80053; 82248; 83615; 84100; 84153; 84550; 96375; 96413; J1100; J2405; J7050; J9171

== ENCOUNTER 2020-05-05 10:48 | Day surgery (SDC) | payer MEDICARE, OTHER ==
[~2020-05-05 10:48] MED LIST changes: -DOCEtaxel 160 MG in Sodium Chloride 0.9% 250 ML 250 ML IVPB SCH; -Dexamethasone 10 MG, Ondansetron 2MG/ML MDV 10 MG in Sodium Chloride 0.9% 50 ML IVPB SCH; -Dexamethasone Sod Phosphate 10 MG, Ondansetron 2MG/ML MDV 10 MG in Sodium Chloride 0.9%... IVPB SCH; +PEGFILGRASTIM-JMDB 6 MG/0.6 ML SYRINGE SQ SCH
[2020-05-05 13:38] VITALS: BP 138/70; TEMP 98
== END 2020-05-05 13:39 | disposition home or self-care (01) ==
LOC: ONC/OP 10:48
PROVIDERS: ATTEND Internal Medicine Hematology & Oncology
DX: Z51.89 Encounter for other specified aftercare (principal); C61 Malignant neoplasm of prostate; C79.51 Secondary malignant neoplasm of bone
CPT/HCPCS: 96372; Q5108

== ENCOUNTER 2020-05-15 19:32 | Emergency (ER) | payer MEDICARE, OTHER ==
[2020-05-15] MEDS ORDERED: Ondansetron PF 4 MG/2 ML Vial ONE (21:58)
[2020-05-15] MEDS ORDERED: Lorazepam 2 MG/ML VIAL ONE ×2 (21:58→23:21)
[2020-05-15] MEDS ORDERED: Morphine 4 MG/ML VIAL ONE (21:58)
[2020-05-15 22:10] LABS: Hemoglobin 10.2 g/dL (14.0-18.0); Mean Corpuscular HGB CONC 32.4 g/dL (32.0-36.0); Mean Corpuscular Hemoglobin 28.2 pg (27.0-31.0); Mean Corpuscular Volume 87.1 fL (78.0-98.0); RBC Distribution Width 17.4 % (11.5-14.5); Red Blood Cell (RBC) Count 3.61 mill/uL (4.70-6.10); White Blood Cell (WBC) Count 9.6 thou/uL (4.8-10.8)
[2020-05-15 22:13] LABS: ALT (SGPT) Less than 7 U/L (8-55); AST (SGOT) 9 U/L (5-34); Alkaline Phosphatase 78 U/L (40-110); Anion Gap 14 mmol/L (10-20); BUN (Urea Nitrogen) 13 mg/dL (8.4-25.7); Bilirubin, Total 0.8 mg/dL (0.2-1.2); Calc. Creatinine Clearance 0 mL/min (70-130); Calcium 7.6 mg/dL (7.8-10.44); Carbon Dioxide 23 mmol/L (23-31); Chloride 107 mmol/L (98-107); Globulin 2.2 g/dL (2.4-3.5); Glucose 146 mg/dL (80-115); Potassium 3.5 mmol/L (3.5-5.1); Protein, Total 5.2 g/dL (5.8-8.1); Sodium 140 mmol/L (136-145)
[2020-05-15 22:31] LABS: #Lymphocytes 0.8 thou/uL (1.20-3.40); #Monocytes 0.5 thou/uL (0.11-0.59); #Neutrophils 8.2 thou/uL (1.40-6.50); %Basophils 0.3 % (0.0-1.0); %Eosinophils 0.2 % (0.0-10.0); %Lymphocytes 8.7 % (21.0-51.0); %Monocytes 5.1 % (0.0-10.0); %Neutrophils 85.7 % (42.0-75.0); Mean Platelet Volume 9.2 fL (7.4-10.4); Platelet Count 102 thou/uL (130-400); Platelet Morphology Comment Appears Decreased
[2020-05-15] MEDS ORDERED: HYDROcodone/Acetaminophen 10/325 mg Tablet ONE (23:21)
== END 2020-05-15 23:32 | disposition home or self-care (01) ==
LOC: ERS 19:32
DX: M54.5 Low back pain (principal); I10 Essential (primary) hypertension
CPT/HCPCS: 80053; 85025; 93005; 96374; 96375; 96376; J2060; J2270; J2405

== ENCOUNTER 2020-05-29 09:28 | Outpatient (CLI) | payer MEDICARE, OTHER ==
--- NOTE | 2020-05-29 13:31 | NM ---
NUCLEAR MEDICINE BONE SCAN WHOLE BODY: (Skeletal scintigraphy) DATE: 05/29/2020 HISTORY: 65-year-old male with prostate cancer presents with low back pain. COMPARISON: Bone scan of 09/23/2019 TECHNIQUE: IV injection of technetium 99m-[id number]: 32.5 mCi 3 hour delayed whole body skeletal scintigraphy in anterior and posterior views. FINDINGS: There is a new finding of diffusely increased uptake horizontally across the entire width of one of t he upper lumbar-type vertebrae, approximately L2. The previously seen uptake at costochondral junctions consistent with rib fractures, has almost compl etely resolved. The focus of increased uptake at the left AC joint consistent with DJD, is again noted. There are no other, new foci of suspicious uptake in the rest of the skeleton. Again noted is the activity throughout the right-sided ileal pouch and urostomy, but now there is a n ew finding of increased uptake throughout the right ureter and right renal collecting system. IMPRESSION: 1) new finding of diffusely increased uptake across one of the upper lumbar vertebrae, approximately L2. This could represent an acute or subacute compression fracture, either osteoporotic or pathologic. Consider further evaluation with MRI of the lumbar spine with and without contrast. 2) new finding of asymmetrically very increased uptake throughout the right ureter and right renal co llecting system. This could represent either partial obstruction or reflux at the ureteral diversion surgical site.
== END 2020-05-29 09:29 | disposition home or self-care (01) ==
LOC: NM 09:28
PROVIDERS: ATTEND Internal Medicine Hematology & Oncology
DX: C61 Malignant neoplasm of prostate (principal); C79.51 Secondary malignant neoplasm of bone; Q62.8 Other congenital malformations of ureter
CPT/HCPCS: 78306; A9503

== ENCOUNTER 2020-06-09 03:21 | Emergency (ER) | payer MEDICARE, OTHER ==
[2020-06-09] MEDS ORDERED: Ketorolac Tromethamine 30 MG/ML VIAL ONE (03:53)
[2020-06-09] MEDS ORDERED: Morphine 4 MG/ML VIAL ONE (03:53)
[2020-06-09 04:51] LABS: ALT (SGPT) Less than 7 U/L (8-55); AST (SGOT) 16 U/L (5-34); Albumin 2.9 g/dL (3.4-4.8); Alkaline Phosphatase 82 U/L (40-110); Anion Gap 13 mmol/L (10-20); BUN (Urea Nitrogen) 9 mg/dL (8.4-25.7); Bilirubin, Total 0.5 mg/dL (0.2-1.2); Calc. Creatinine Clearance 0 mL/min (70-130); Carbon Dioxide 25 mmol/L (23-31); Chloride 108 mmol/L (98-107); Globulin 2.3 g/dL (2.4-3.5); Glucose 133 mg/dL (80-115); Potassium 3.2 mmol/L (3.5-5.1); Protein, Total 5.2 g/dL (5.8-8.1); Sodium 143 mmol/L (136-145)
[2020-06-09 04:57] LABS: #Eosinphils 0.1 thou/uL (0.0-0.7); #Lymphocytes 0.8 thou/uL (1.20-3.40); #Monocytes 0.4 thou/uL (0.11-0.59); #Neutrophils 2.3 thou/uL (1.40-6.50); %Basophils 0.3 % (0.0-1.0); %Eosinophils 3.7 % (0.0-10.0); %Lymphocytes 21.5 % (21.0-51.0); %Monocytes 11.4 % (0.0-10.0); Mean Corpuscular HGB CONC 31.4 g/dL (32.0-36.0); Mean Corpuscular Hemoglobin 27.2 pg (27.0-31.0); Mean Corpuscular Volume 86.7 fL (78.0-98.0); Mean Platelet Volume 9.3 fL (7.4-10.4); Platelet Count 108 thou/uL (130-400); RBC Distribution Width 17.9 % (11.5-14.5); Red Blood Cell (RBC) Count 3.69 mill/uL (4.70-6.10); White Blood Cell (WBC) Count 3.6 thou/uL (4.8-10.8)
--- NOTE | 2020-06-09 08:14 | CT ---
CT OF THE ABDOMEN AND PELVIS WITH IV CONTRAST: INDICATION: A 65-year-old male with a history of back pain and L3 compression fracture with complaints of back sp asms and pain with movement and diarrhea. COMPARISON: Prior exam dated 04/23/2020. FINDINGS: There are small bilateral pleural effusions. Small left lower lobe pulmonary nodule measuring 4 mm i s stable. Findings of cirrhosis with portal hypertension and scattered ascites is similar. Small hypodensities right hepatic lobe are stable. Gallbladder, pancreas, and adrenal glands appear within normal limit s. Mild right hydronephrosis persists. Ileoconduit and right lower quadrant urostomy is stable. Po st procedural change of the mid to distal small bowel is stable. There is some accentuated wall thic kness of the ascending colon and cecum as well as portions of the sigmoid colon and rectum which can be related to decompression. Bladder is surgically absent. Visualized stomach and duodenum appear w ithin normal limits. Mild wedging of L1 is stable. There is a new superior end plate compression fr acture of L2 when compared to the prior CT evaluation that is stable to the comparison MRI dated 06/05. Mild end plate compression abnormalities involving L3 and L4 are stable. IMPRESSION: 1. Worsening mild diffuse ascites. Findings of cirrhosis and portal hypertension. 2. Small bilateral pleural effusions and bibasilar atelectasis. 3. Stable mild right hydronephrosis likely related to urinary reflux from the patient's ileoconduit. 4. Stable acute mild superior end plate wedge compression abnormality of L2. Stable chronic ricky alissa abnormalities of L1, L3, and L4. POS: [facility]
[2020-06-09] MEDS ORDERED: Iopamidol-370 76% 500 ML 1 ML ONE (10:27)
== END 2020-06-09 07:20 | disposition home or self-care (01) ==
LOC: ERS 03:21
DX: M62.830 Muscle spasm of back (principal); G89.29 Other chronic pain; I10 Essential (primary) hypertension; Z79.899 Other long term (current) drug therapy
CPT/HCPCS: 74177; 80053; 85025; 85652; 86140; 96374; 96375; J1885; J2270; Q9967

== ENCOUNTER 2020-06-20 09:47 | Inpatient (IN) | payer MEDICARE, OTHER ==
[2020-06-20] MEDS ORDERED: Iopamidol-370 76% 500 ML 1 ML ONE (10:12)
[2020-06-20] MEDS ORDERED: Cefepime 2 GM VIAL ONE (10:15)
[2020-06-20] MEDS ORDERED: Acetaminophen 500 MG TAB ONE (10:15)
[2020-06-20 10:28] LABS: Bilirubin Negative (Negative); Blood, Urine Large (Negative); Glucose, Urine (Dipstick) Negative (Negative); Ketone, Urine Negative (Negative); Leukocyte Large (Negative); Nitrite Negative (Negative); Protein, Urine (Dipstick) 100 mg/dL (Neg-Trace); Urobilinogen 0.2 mg/dL (Less than 2)
[2020-06-20 10:31] LABS: Clarity Hazy (Clear)
[2020-06-20 10:36] LABS: Bacteria/HPF 2+ HPF (None Seen); Squamous Epithelial None Seen HPF (0-3)
[2020-06-20] MEDS ORDERED: VANCOMYCIN 2 GRAM/400 ML BAG 2 GM in Premix Bag 1 BAG IVPB SCH (10:45)
[2020-06-20 11:07] LABS: ALT (SGPT) Less than 7 U/L (8-55); AST (SGOT) 21 U/L (5-34); Albumin 3.2 g/dL (3.4-4.8); Alkaline Phosphatase 68 U/L (40-110); Anion Gap 13 mmol/L (10-20); BUN (Urea Nitrogen) 9 mg/dL (8.4-25.7); Bilirubin, Total 1.3 mg/dL (0.2-1.2); Calc. Creatinine Clearance 0 mL/min (70-130); Calcium 7.2 mg/dL (7.8-10.44); Carbon Dioxide 25 mmol/L (23-31); Chloride 102 mmol/L (98-107); Globulin 2.7 g/dL (2.4-3.5); Glucose 173 mg/dL (80-115); Potassium 3.3 mmol/L (3.5-5.1); Protein, Total 5.9 g/dL (5.8-8.1); Sodium 137 mmol/L (136-145)
--- NOTE | 2020-06-20 11:30 | RAD ---
PORTABLE CHEST: Date: 06/20/2020 HISTORY: Difficulty breathing. COMPARISON: 04/23/2020 exam. FINDINGS: Heart size is within normal limits. There are atherosclerotic changes of the aorta. The lungs appear clear of any infiltrative process. Blunting to the costophrenic angles is present. IMPRESSION: Minimal blunting to the costophrenic angles, which could represent very small effusions versus pleura l thickening. POS: [facility]
[2020-06-20] MEDS ORDERED: Vancomycin 1 GM/200 ML BAG ONE ×2 (12:02→13:24)
--- NOTE | 2020-06-20 12:26 | CT ---
Exam: CT angiogram of the chest HISTORY: History: Dyspnea. Fever chills. COMPARISON: 04/23/2020 TECHNIQUE: CT angiogram of the chest is performed in the axial plane. Three-dimensional reformatted i mages are submitted for interpretation FINDINGS: Mediastinum: No mass, lymphadenopathy or hematoma. HEART: Normal size. No significant pericardial fluid. Aorta: No aneurysm or dissection Upper solid abdominal viscera: Cirrhotic changes of the liver. Stable hypodensity in the right hepati c lobe. Trachea and central bronchi: Patent Pleural spaces: Small left and moderate right pleural effusion. Lung parenchyma: Consolidation of the lung parenchyma adjacent to the pleural fluid compatible with a telectasis. Superimposed aspiration and/or pneumonia cannot be excluded. Incompletely evaluated 0.6 cm nodule similar to the examination performed in March 2020. Pneumothorax: None Osseous structures: No lytic or blastic lesions Pulmonary arteries: Adequate contrast opacification pulmonary arterial system to the level of segment al arteries. No filling defect to suggest pulmonary embolism IMPRESSION: 1. No evidence of pulmonary artery embolism to the level of the segmental arteries. 2. Bilateral pleural effusions with adjacent consolidation likely due to atelectasis. Superimposed pn eumonia and/or aspiration cannot be excluded 3. Cirrhosis of the liver. 4. Incompletely evaluated nodule in the left lower lobe. Code lung nodule
[2020-06-20 12:49] LABS: CKMB 0.8 ng/mL (0-6.6)
[2020-06-20] MEDS ORDERED: Acetaminophen 650 MG Suppository PR PRN (13:35)
[2020-06-20] MEDS ORDERED: Ondansetron ODT 4 MG TAB PO PRN (13:35)
[2020-06-20] MEDS ORDERED: Guaifenesin DM 100-10/5 ML UDCUP PO PRN (13:35)
[2020-06-20] MEDS ORDERED: Calcium Carbonate 500 MG ChewTAB PO PRN (13:35)
--- NOTE | 2020-06-20 13:42 | PDOC.HHP ---
Hospitalist DAPHNE dyspnea History of Present Illness: Case of an 65y/o male with a pmhx of liver cirrohsis secondary to hep c, htn and hx of prostate CA s/p prostatectomy s/p cystectomy with urostomy who comes to hospital due to fever chills and sob. patient states he was on his usual state of health until today when he started with the symptoms. He states that this happens every time he gets a urinary tract infection which are very recurrent. He denies any chest pain, cough or covid exposure. No significant abdominal pain, nausea, vomiting or diarrhea. He notes that he was recently in the hospital last week and had a bone fusion for some lumbar compression fractures due to osteoporosis. patient states he finished his chemotherapy on the beginning of April Allergies/Adverse Reactions: Allergy/AdvReac Type Severity Reaction Status Date / Time No Known Drug Allergies Allergy Verified 04/24/20 01:51 Home Medications: Medication Instructions Recorded Confirmed Type Amlodipine Besylate/Benazepril 1 tab PO DAILY 01/20/20 04/24/20 History [amLODIPine Besylate/Benazepril] Atorvastatin Calcium [Lipitor] 10 mg PO HS 01/20/20 04/24/20 History Dexamethasone 2 tab PO Q12HR 01/20/20 04/24/20 History Loperamide HCl [Anti-Diarrheal] 2 mg PO PRN PRN 01/20/20 04/24/20 History Melatonin 10 mg PO HS PRN 01/20/20 04/24/20 History Ondansetron [Ondansetron Odt] 1 tab SL PRN PRN MDD 3 TIMES/DAY 01/20/20 04/24/20 History Pantoprazole [Protonix] 1 tab PO DAILY 01/20/20 04/24/20 History Celecoxib 200 mg PO DAILY 04/24/20 04/24/20 History Cyclobenzaprine [Flexeril] 10 mg PO TID PRN 04/24/20 04/24/20 History DOCEtaxel [Taxotere] 60 - 100 mg/m2 IVPB Q21D 04/24/20 04/24/20 History Folfiri 04/24/20 History Levofloxacin [Levaquin] 750 mg PO DAILY #14 tab 04/25/20 Rx traMADol HCl [Tramadol HCl] 50 mg PO Q12HR PRN #20 tablet 06/09/20 Rx traMADol HCl [Tramadol HCl] 50 mg PO TID PRN #20 tablet 06/09/20 Rx Hospitalist HPI ROS All other systems reviewed; all pertinent +/- noted in HPI/Subj Hospitalist Exam General Appearance: NAD, awake alert Eye: PERRL, anicteric sclera ENT: normocephalic atraumatic, no oropharyngeal lesions, moist mucosa Neck: supple, symmetric, no JVD, no thyromegaly Heart: RRR, no murmur, no gallops, no rubs, normal peripheral pulses Respiratory: CTAB, no wheezes, no rales, no ronchi, normal chest expansion Gastrointestinal: soft, non-tender, non-distended, normal bowel sounds Extremities: no cyanosis, no clubbing, no edema Skin: normal turgor, no lesions, no rashes Neurological: cranial nerve grossly intact, normal sensation to touch, no weakness Musculoskeletal: normal tone, normal strength, no muscle wasting Psychiatric: normal affect, normal behavior, A&O x 3 Hospitalist Results Result Diagrams: 06/20/20 10:06 Lab results: Laboratory Last Values Sodium 137 mmol/L (136-145) 06/20/20 10:06 Potassium 3.3 mmol/L (3.5-5.1) L 06/20/20 10:06 Chloride 102 mmol/L (98-107) 06/20/20 10:06 Carbon Dioxide 25 mmol/L (23-31) 06/20/20 10:06 Anion Gap 13 mmol/L (10-20) 06/20/20 10:06 BUN 9 mg/dL (8.4-25.7) 06/20/20 10:06 Creatinine 1.15 mg/dL (0.7-1.3) 06/20/20 10:06 Estimated GFR (MDRD) 64 06/20/20 10:06 Glucose 173 mg/dL (80-115) H 06/20/20 10:06 Lactic Acid 4.2 mmol/L (0.5-2.2) H* 06/20/20 10:06 Calcium 7.2 mg/dL (7.8-10.44) L 06/20/20 10:06 Total Bilirubin 1.3 mg/dL (0.2-1.2) H 06/20/20 10:06 AST 21 U/L (5-34) 06/20/20 10:06 ALT Less than 7 U/L (8-55) L 06/20/20 10:06 Alkaline Phosphatase 68 U/L (40-110) 06/20/20 10:06 CK-MB (CK-2) 0.8 ng/mL (0-6.6) 06/20/20 10:06 Troponin I 0.045 ng/mL (< 0.028) H 06/20/20 10:06 Serum Total Protein 5.9 g/dL (5.8-8.1) 06/20/20 10:06 Albumin 3.2 g/dL (3.4-4.8) L 06/20/20 10:06 Globulin 2.7 g/dL (2.4-3.5) 06/20/20 10:06 Albumin/Globulin Ratio 1.2 g/dL (1.2-2.2) 06/20/20 10:06 Urine Color Yellow (Yellow) 06/20/20 10:05 Urine Clarity Hazy (Clear) 06/20/20 10:05 Urine pH 7.0 (5.0-9.0) 06/20/20 10:05 Ur Specific [place] 1.020 (1.005-1.030) 06/20/20 10:05 Urine Protein 100 mg/dL (Neg-Trace) A 06/20/20 10:05 Urine Glucose (UA) Negative mg/dL (Negative) 06/20/20 10:05 Urine Ketones Negative mg/dL (Negative) 06/20/20 10:05 Urine Blood Large (Negative) A 06/20/20 10:05 Urine Nitrite Negative (Negative) 06/20/20 10:05 Urine Bilirubin Negative (Negative) 06/20/20 10:05 Urine Urobilinogen 0.2 mg/dL (Less than 2) 06/20/20 10:05 Ur Leukocyte Esterase Large (Negative) H 06/20/20 10:05 Urine RBC 11-20 HPF (0-3) A 06/20/20 10:05 Urine WBC 11-20 HPF (0-3) A 06/20/20 10:05 Ur Squamous Epith Cells None Seen HPF (0-3) 06/20/20 10:05 Urine Bacteria 2+ HPF (None Seen) A 06/20/20 10:05 Hospitalist H&P A/P (1) Sepsis Code(s): A41.9 - SEPSIS, UNSPECIFIED ORGANISM Status: Acute (2) UTI (urinary tract infection) Status: Acute (3) Pneumonia Code(s): J18.9 - PNEUMONIA, UNSPECIFIED ORGANISM Status: Acute (4) Liver cirrhosis Code(s): K74.60 - UNSPECIFIED CIRRHOSIS OF LIVER Status: Acute (5) HTN (hypertension) Code(s): I10 - ESSENTIAL (PRIMARY) HYPERTENSION Status: Acute (6) Prostate cancer Code(s): C61 - MALIGNANT NEOPLASM OF PROSTATE Status: Chronic Plan: Case of an 65y/o male with the stated pmhx who presents with sepsis likely secondary to uti vs pna sepsis - fever, tachycardia + elevated LA with a u/a concerning for uti and a chest ct concerning for pna - sepsis bundles started - given vanc at ed - will start zosyn which should cover c uti and pna/aspiration - f/u LA - f/u cultures - continue ivfs - duo nebs to help w atelectasia htn - continue home meds prostate ca - recently stopped chemo on dic - will f/u with oncologist elevated troponins - likely demand ischemia in setting of sepsis
[2020-06-20 13:57] LABS: Lactic Acid 2.1 mmol/L (0.5-2.2)
[2020-06-20 14:28] LABS: Troponin I 0.043 ng/mL (< 0.028)
[2020-06-20] MEDS ORDERED: Ondansetron PF 4 MG/2 ML Vial ONE (14:43)
[2020-06-20 18:04] LABS: SARS-CoV-2 PCR by NAA Not Detected (NotDetected)
[2020-06-20 18:11] LABS: Troponin I 0.032 ng/mL (< 0.028)
[2020-06-20] MEDS: Sodium Chloride 0.9% 1,000 ML IV SCH (18:15)
[2020-06-20] MEDS: Piperacillin/Tazobactam 4.5 GM in Sodium Chloride 0.9% 100 ML IVPB SCH ×2 (18:16→23:41)
[2020-06-20 18:44] LABS: Hemoglobin 9.6 g/dL (14.0-18.0); Mean Corpuscular HGB CONC 31.8 g/dL (32.0-36.0); Mean Corpuscular Hemoglobin 26.6 pg (27.0-31.0); Mean Corpuscular Volume 83.5 fL (78.0-98.0); Mean Platelet Volume 11.3 fL (7.4-10.4); Platelet Count 66 thou/uL (130-400); Red Blood Cell (RBC) Count 3.62 mill/uL (4.70-6.10); White Blood Cell (WBC) Count 5.7 thou/uL (4.8-10.8)
[2020-06-20 19:06] LABS: Anisocytosis SLIGHT = 6-15 cells (100X) (0-5/hpf); Band 9 % (5-11); Hypochromia SLIGHT = 6-15 cells (100X) (0-5/hpf); Lymphocytes 1 % (21-51); MDiff Complete? YES; Monocytes 6 % (0-10); Neutrophil 84 % (42-75); Ovalocytes SLIGHT = 2-5 cells (100X) (0-1/hpf); Platelet Morphology Comment Appears Decreased; Polychromasia SLIGHT = 2-3 cells (100X) (0-2/hpf); Schistocytes SLIGHT = 2-5 cells (100X) (0-1/hpf); Tear Drops SLIGHT = 2-5 cells (100X) (0-1/hpf)
[2020-06-20] MEDS: Albuterol 200 PUFF (6.7GM INHALER) INH SCH (19:14)
[2020-06-20] MEDS: Ondansetron PF 4 MG/2 ML Vial IVP PRN (19:28)
[2020-06-20] MEDS: Acetaminophen 325 MG TAB PO PRN (19:33)
[2020-06-21 03:47] LABS: Band 9 % (5-11); Hemoglobin 9.7 g/dL (14.0-18.0); Lymphocytes 8 % (21-51); MDiff Complete? YES; Mean Corpuscular HGB CONC 32.7 g/dL (32.0-36.0); Mean Corpuscular Hemoglobin 27.6 pg (27.0-31.0); Mean Corpuscular Volume 84.4 fL (78.0-98.0); Mean Platelet Volume 5.4 fL (7.4-10.4); Monocytes 5 % (0-10); Neutrophil 78 % (42-75); Platelet Count 49 thou/uL (130-400); Platelet Morphology Comment Appears Decreased; RBC Distribution Width 16.8 % (11.5-14.5); Red Blood Cell (RBC) Count 3.52 mill/uL (4.70-6.10); White Blood Cell (WBC) Count 3.2 thou/uL (4.8-10.8)
[2020-06-21] MEDS: Ondansetron PF 4 MG/2 ML Vial IVP PRN (03:56)
[2020-06-21] MEDS: Piperacillin/Tazobactam 4.5 GM in Sodium Chloride 0.9% 100 ML IVPB SCH ×3 (05:30→18:03)
[2020-06-21] MEDS: Sodium Chloride 0.9% 1,000 ML IV SCH (05:34)
[2020-06-21 07:03] LABS: ALT (SGPT) Less than 7 U/L (8-55); AST (SGOT) 18 U/L (5-34); Albumin 2.5 g/dL (3.4-4.8); Alkaline Phosphatase 46 U/L (40-110); Anion Gap 12 mmol/L (10-20); BUN (Urea Nitrogen) 14 mg/dL (8.4-25.7); Bilirubin, Total 0.8 mg/dL (0.2-1.2); Calc. Creatinine Clearance 131 mL/min (70-130); Calcium 6.2 mg/dL (7.8-10.44); Carbon Dioxide 23 mmol/L (23-31); Chloride 104 mmol/L (98-107); Globulin 2.2 g/dL (2.4-3.5); Glucose 133 mg/dL (80-115); Potassium 3.1 mmol/L (3.5-5.1); Protein, Total 4.7 g/dL (5.8-8.1); Sodium 136 mmol/L (136-145)
[2020-06-21] MEDS: Albuterol 200 PUFF (6.7GM INHALER) INH SCH (07:49)
[2020-06-21] MEDS ORDERED: Cyclobenzaprine 10 MG TAB PO PRN (07:58)
[2020-06-21] MEDS ORDERED: traMADol HCl 50 MG TAB PO PRN (07:58)
[2020-06-21] MEDS ORDERED: Cepastat Lozenges 1 LOZ PO PRN (08:00)
[2020-06-21] MEDS ORDERED: Zolpidem Tartrate 5 MG TAB PO PRN (08:00)
[2020-06-21] MEDS ORDERED: hydrALAZINE 20 MG/ML VIAL SLOW IVP PRN (08:00)
[2020-06-21] MEDS ORDERED: Benzonatate 100 MG CAP PO PRN (08:00)
[2020-06-21] MEDS ORDERED: Senokot S 8.6-50 MG TAB PO PRN (08:00)
[2020-06-21] MEDS ORDERED: Bisacodyl 5 MG TAB PO PRN (08:00)
[2020-06-21] MEDS ORDERED: Loratadine 10 MG TAB PO PRN (08:00)
[2020-06-21] MEDS ORDERED: Sodium Chloride 0.65% Nasal 44 ML BOT EA NARE PRN (08:00)
[2020-06-21] MEDS ORDERED: GUAIFENESIN SF SOLN 200 MG/10 ML UDCUP PO PRN (08:00)
[2020-06-21] MEDS ORDERED: Potassium Chloride 20 MEQ TAB PO SCH (08:00)
[2020-06-21] MEDS ORDERED: Melatonin 3 MG TAB PO PRN (08:01)
[2020-06-21] MEDS: Carvedilol 6.25 MG TAB PO SCH ×2 (08:15→21:11)
[2020-06-21] MEDS: Calcium Carbonate 600 MG + Vit D TAB PO SCH ×2 (08:15→18:03)
[2020-06-21] MEDS: Folic Acid 1 MG TAB PO SCH (08:15)
[2020-06-21] MEDS: Cyanocobalamin (Vitamin B-12) 1,000 MCG TAB PO SCH (08:15)
[2020-06-21] MEDS: Saccharomyces boulardii 250 MG CAP PO SCH (08:16)
[2020-06-21] MEDS: Acetaminophen 325 MG TAB PO PRN (08:17)
[2020-06-21] MEDS ORDERED: Enoxaparin Sodium 40 MG/0.4 ML SYRINGE SC SCH (09:00)
[2020-06-21] MEDS ORDERED: FLU VACC QS2020-21(6MOS UP)/PF 60 MCG/0.5 ML SYRINGE IM ONE (09:00)
[2020-06-21] MEDS ORDERED: Iopamidol-370 76% 500 ML 1 ML ONE (10:35)
--- NOTE | 2020-06-21 11:28 | PDOC.HOSPP ---
- Subjective Encounter Date: 06/21/20 Encounter Time: 07:35 Subjective: Patient seen and examined. Patient has fever, his blood culture is positive for Enterobacter, - Objective Vital Signs & Weight: Vital Signs (12 hours) Temp Pulse Resp BP Pulse Ox 06/21/20 08:17 100.1 F H 06/21/20 08:00 100.1 F H 95 16 137/73 95 06/21/20 03:32 99.2 F 94 22 H 139/77 93 L 06/21/20 00:36 95 06/21/20 00:00 98.6 F 90 Weight Weight 263 lb 14.4 oz I&O: 06/20/20 06/21/20 06/22/20 06:59 06:59 06:59 Intake Total 985 Output Total 475 Balance 510 Result Diagrams: 06/21/20 03:12 06/21/20 06:19 Radiology Reviewed by me: Yes EKG Reviewed by me: Yes Hospitalist ROS - Review of Systems Constitutional: reports: fever, weakness, malaise. denies: chills, sweats, other ENT: denies: ear pain, ear discharge, nose pain, nose discharge, nose congesti on, mouth pain, mouth swelling, throat pain, throat swelling, other Respiratory: denies: cough, dry, shortness of breath, hemoptysis, SOB with excertion, pleuritic pain, sputum, wheezing, other Cardiovascular: denies: chest pain, palpitations, orthopnea, paroxysmal noc. dyspnea, edema, light headedness, other Gastrointestinal: denies: nausea, vomiting, abdominal pain, diarrhea, constipation, melena, hematochezia, other Genitourinary: denies: dysuria, frequency, incontinence, hematuria, retention, other Musculoskeletal: denies: neck pain, shoulder pain, arm pain, back pain, hand pain, leg pain, foot pain, other - Medication Medications: Active Medications Generic Name Dose Route Start Last Admin Trade Name Freq PRN Reason Stop Dose Admin Acetaminophen 650 mg 06/20/20 13:35 06/21/20 08:17 Acetaminophen 325 Mg Tab PO 650 mg Q4H PRN Administration Headache/Fever/Mild Pain (1-3) Albuterol Sulfate 2 puff 06/20/20 19:00 06/21/20 07:49 Albuterol 200 Puff (6.7gm Inhaler) INH 2 puff [id number] OTILIA Administration Bisacodyl 10 mg 06/21/20 08:00 06/21/20 08:25 Bisacodyl 5 Mg Tab PO 10 mg DAILYPRN PRN Administration Constipation Calcium/Vitamin D 1 tab 06/21/20 08:00 06/21/20 08:15 Calcium Carbonate 600 Mg + Vit D Tab PO 1 tab BID-WM OTILIA Administration Carvedilol 6.25 mg 06/21/20 09:00 06/21/20 08:15 Carvedilol 6.25 Mg Tab PO 6.25 mg BID OTILIA Administration Cyanocobalamin 1,000 mcg 06/21/20 09:00 06/21/20 08:15 Cyanocobalamin (Vitamin B-12) 1,000 Mcg Tab PO 1,000 mcg DAILY OTILIA Administration Folic Acid 1 mg 06/21/20 09:00 06/21/20 08:15 Folic Acid 1 Mg Tab PO 1 mg DAILY OTILIA Administration Piperacillin Sod/Tazobactam 100 mls @ 200 mls/hr 06/20/20 18:00 06/21/20 05:30 Sod 4.5 gm/ Sodium Chloride IVPB 100 mls Q6HR OTILIA Administration Ondansetron HCl 4 mg 06/20/20 13:35 06/21/20 03:56 Ondansetron Pf 4 Mg/2 Ml Vial IVP 4 mg Q6H PRN Administration Nausea/Vomiting Pantoprazole Sodium 40 mg 06/21/20 09:00 06/21/20 08:16 Pantoprazole 40 Mg Tab PO 40 mg DAILY OTILIA Administration Saccharomyces Boulardii 250 mg 06/21/20 09:00 06/21/20 08:16 Saccharomyces Boulardii 250 Mg Cap PO 250 mg DAILY OTILIA Administration Sodium Chloride 10 ml 06/20/20 21:00 06/21/20 08:17 Flush - Normal Saline 10 Ml Syringe IVF 10 ml Q12HR OTILIA Administration Hospitalist Exam Vitals: Vital Signs (12 hours) Temp Pulse Resp BP Pulse Ox 06/21/20 08:17 100.1 F H 06/21/20 08:00 100.1 F H 95 16 137/73 95 06/21/20 03:32 99.2 F 94 22 H 139/77 93 L 06/21/20 00:36 95 06/21/20 00:00 98.6 F 90 Weight Weight 263 lb 14.4 oz General Appearance: NAD, awake alert Eye: PERRL, anicteric sclera ENT: normocephalic atraumatic, no oropharyngeal lesions Neck: supple, symmetric, no JVD, no thyromegaly Heart: RRR, no murmur, no gallops, no rubs Respiratory: rhonchi, wheezes Gastrointestinal: soft Gastrointestinal - other findings: Ascites noted, urostomy bag in place Extremities: no clubbing, 1+ LE edema Skin: normal turgor, no lesions Neurological: no focal deficits Musculoskeletal: normal tone, normal strength Psychiatric: normal affect, normal behavior Hosp A/P (1) UTI (urinary tract infection) Status: Acute (2) Sepsis due to gram-negative UTI Code(s): A41.50 - GRAM-NEGATIVE SEPSIS, UNSPECIFIED; N39.0 - URINARY TRACT INFECTION, SITE NOT SPECIFIED Status: Acute (3) Bacteremia due to Gram-negative bacteria Code(s): R78.81 - BACTEREMIA Status: Acute (4) Pneumonia Code(s): J18.9 - PNEUMONIA, UNSPECIFIED ORGANISM Status: Suspected Qualifiers: Aspiration pneumonia type: unspecified Lung location: unspecified part of lung (5) Liver cirrhosis Code(s): K74.60 - UNSPECIFIED CIRRHOSIS OF LIVER Status: Chronic Qualifiers: Hepatic cirrhosis type: alcoholic cirrhosis (6) HTN (hypertension) Code(s): I10 - ESSENTIAL (PRIMARY) HYPERTENSION Status: Chronic (7) Prostate cancer Code(s): C61 - MALIGNANT NEOPLASM OF PROSTATE Status: Chronic (8) Hypokalemia Code(s): E87.6 - HYPOKALEMIA Status: Acute (9) Type 2 myocardial infarction Code(s): I21.A1 - MYOCARDIAL INFARCTION TYPE 2 Status: Acute (10) Sepsis with acute organ dysfunction Code(s): A41.9 - SEPSIS, UNSPECIFIED ORGANISM; R65.20 - SEVERE SEPSIS WITHOUT SEPTIC SHOCK Status: Acute Qualifiers: Sepsis type: sepsis due to unspecified organism Severe sepsis acute organ dysfunction type: unspecified Severe sepsis shock status: without septic shock Qualified Code(s): A41.9 - Sepsis, unspecified organism; R65.20 - Severe sepsis without septic shock (11) Pancytopenia Code(s): D61.818 - OTHER PANCYTOPENIA Status: Chronic (12) Obesity (BMI 30-39.9) Code(s): E66.9 - OBESITY, UNSPECIFIED Status: Chronic - Plan old records reviewed/req, continue antibiotics, DVT proph w/SCDs Discontinue IV fluid Continue Zosyn We will order abdominal ultrasound to look for ascites, if he has significant ascites then will consider paracentesis Consult ID Follow-up on culture and sensitivity result Okay to transfer to medical floor Ambulate as tolerated We will repeat labs tomorrow
--- NOTE | 2020-06-21 13:58 | ULT ---
EXAM: US Abdomen Limited CLINICAL HISTORY: Evaluate for cholecystitis. COMPARISON: None. FINDINGS: Trace amount of perihepatic fluid. Small amount of fluid in the right lower quadrant and left upper q uadrant. IMPRESSION: Trace amount of fluid in the abdomen. The amount of fluid does not warrant paracentesis
[2020-06-21] MEDS: Atorvastatin Calcium 10 MG TAB PO SCH (21:11)
--- NOTE | 2020-06-21 21:28 | CON ---
DATE OF CONSULTATION: 06/21/2020 REASON FOR CONSULTATION: Bacteremia. HISTORY OF PRESENT ILLNESS: A 65-year-old whom I had seen last year when he presented with a history of stage III or IV prostate cancer with complications related to urethral stricture and then noncompliant bladder which required resection and shaping of an ileal conduit about a year and half ago approximately. He has also completed Taxotere chemotherapy. In December 2019, he was admitted with neutropenia associated with chemotherapy and nonspecific symptoms which were either related to chemo or an invasive UTI. He did have leukoerythroblastic response. Subsequently, the patient was admitted March 2020 with general weakness, some malaise, and bleeding from the urostomy. He also felt unwell. The urine output decreased and became cloudy. The microbiology at that time showed negative blood cultures and I do not see a sample for urine culture submitted at that time. The patient was discharged on April 26 with a diagnosis of sepsis secondary to UTI, although this was not confirmed by culture data. The urinalysis from March is not available, so I do not know what happened there, if urinalysis was not submitted or what. He was released on levofloxacin, now he comes to back to the hospital with sudden development of fever, chills, which developed on June 20, general malaise, some difficulty breathing. He also has had more frequent episodes of what he describes as this coughing episode followed by retching which appears almost like a reflux reaction which is triggered by coughing spells. He used to have one or twice a year, now is becoming more frequent. The whole event last less than a minute and starts with coughing spells and then no sputum production and it goes into this protracted retching episode and that goes away. No headaches. No visual symptoms, sore throat, odynophagia, or dysphagia. He does have some abdominal pain in the right upper quadrant. He will sometimes shut off the valve that lets urine out of the urostomy bag. He is not sure how often he does that. No lower extremity symptoms. No neurological symptoms. PAST MEDICAL HISTORY: Hypertension; stage 3/4 prostate cancer; liver cirrhosis, probably from steatohepatitis plus hepatitis C; history of prostate resection; urethral strictures; radiation therapy; low capacity bladder with ileal conduit placement; hypertension. ALLERGIES: NONE. FAMILY HISTORY: Noncontributory. SOCIAL HISTORY: Never smoker. Disabled. CURRENT MEDICATIONS: Include; 1. DuoNeb. 2. Lipitor. 3. Tessalon. 4. Dulcolax. 5. Tums. 6. Flexeril. 7. Folvite. 8. Robitussin. 9. Apresoline. 10. Claritin. 11. Melatonin. 12. Zofran. 13. Protonix. 14. Senokot. 15. Zosyn. PHYSICAL EXAMINATION: VITAL SIGNS: T-max 100.1, blood pressure 109/73, heart rate 87, respirations 18, and O2 saturation 94% on room. GENERAL: Alopecia. Urostomy in the right flank. Peripheral IV access. No lymphadenopathy. HEENT: Ocular movements conjugate. Oral cavity normal. Numerous teeth in place with some decay. NECK: Supple. No jugular vein distention. LUNGS: Symmetric, clear breath sounds. HEART: S1-S2 regular rate. ABDOMEN: Soft, moderately distended. Mildly tender in the right upper quadrant. No ascites. EXTREMITIES: No joint inflammatory activity. The patient has 2+ edema in lower extremities. Pulses, 1+ in dorsalis pedis. Moves extremities equally, diffusely weak. NEUROLOGIC: Oriented. Follows commands. Speech is normal. LABORATORY DATA: Urinalysis with 11 to 20 wbc's. White cell count 3.2, hemoglobin 9.7, platelets 49,000, 78% neutrophils. Sodium 136, creatinine 0.98, albumin 2.5, globulin 2.2. SARS-CoV-2 not detected. Chest CTA showed no pulmonary embolism, bilateral pleural effusions, adjacent consolidation likely due to atelectasis, cirrhosis of liver and some nodule in the left lower lobe. Microbiology with 2 sets of blood cultures with Enterobacter species, pending susceptibility studies result. ASSESSMENT: Prostate cancer, stage 3/4 and complications related to treatment with eventual urostomy formation and now likely invasive urinary tract infection with bacteremia due to Enterobacter species. The patient did have a perihepatic fluid evaluated by ultrasound, but there is not enough to warrant paracentesis. We need to do a full kidney ultrasound to evaluate and rule out hydronephrosis and make sure that the urostomy is functioning properly. Zosyn seems to be adequate for this bacteria for the time being and we will wait for the final results, susceptibility studies to define the discharge antimicrobials once he is clinically improved and all the questions mentioned above are resolved. Job ID: [id number]
--- NOTE | 2020-06-21 21:49 | CT ---
CT ABDOMEN AND PELVIS WITH IV CONTRAST: 06/21/20 Oral contrast was administered. INDICATIONS: Prostate cancer. Bacteremia. Abdominal pain. Comparison made to recent CT abdomen and pelvis 06/09/20. FINDINGS: Images through the lung bases again show bilateral pleural effusions. These bilateral effusions have increased in size since 06/09/20. There is associated compressive atelectasis of the lower lobes. The liver again shows cirrhotic changes with irregular margins. Small low density focus in the right lobe is stable possibly representing small cysts. Spleen and pancreas unremarkable. Low volume ascites in the abdomen and pelvis again noted. Adrenal glands unremarkable. Mild right hydronephrosis is again noted and was previously described. Patient has an ileal conduit a nd urostomy in the right abdomen which was previously described. Patient is post urinary bladder rese ction. The proximal and mid small bowel loops show mild dilatation. This is a new finding when compared to t he prior study. The distal ileal loops are normal caliber and the findings are indicative of a low gr pal mid small bowel obstruction. Colon shows nonspecific mural thickening in the right colon and mid left colon. Aorta normal caliber. Review of the osseous structures show vertebroplasty changes at L2 and L# since the prior study. IMPRESSION: 1. Bilateral pleural effusions have increased in size since prior exam. 2. Low volume ascites again noted similar to prior exam with change of cirrhosis again noted. 3. Mild dilatation of proximal and mid small bowel loops with normal caliber distal ileum. The f indings suggest low grade mid small bowel obstruction. 4. Otherwise, the abdominal findings are stable. The mild right hydronephrosis is unchanged in a ppearance. POS: AGW
[2020-06-22] MEDS: Piperacillin/Tazobactam 4.5 GM in Sodium Chloride 0.9% 100 ML IVPB SCH ×5 (00:21→23:26)
[2020-06-22] MEDS: Loperamide HCl 2 MG CAP PO PRN (03:22)
[2020-06-22 05:59] LABS: INR-International Normal Ratio 1.2; Prothrombin Time 15.1 sec (12.0-14.7)
[2020-06-22 06:22] LABS: ALT (SGPT) Less than 7 U/L (8-55); AST (SGOT) 21 U/L (5-34); Albumin 2.6 g/dL (3.4-4.8); Alkaline Phosphatase 56 U/L (40-110); Anion Gap 12 mmol/L (10-20); BUN (Urea Nitrogen) 14 mg/dL (8.4-25.7); Bilirubin, Total 0.5 mg/dL (0.2-1.2); Calc. Creatinine Clearance 140 mL/min (70-130); Calcium 6.5 mg/dL (7.8-10.44); Carbon Dioxide 25 mmol/L (23-31); Chloride 104 mmol/L (98-107); Globulin 2.3 g/dL (2.4-3.5); Glucose 108 mg/dL (80-115); Magnesium 1.7 mg/dL (1.6-2.6); Protein, Total 4.9 g/dL (5.8-8.1); Sodium 138 mmol/L (136-145)
[2020-06-22] MEDS ORDERED: Potassium Phosphate 30 MMOL in Sodium Chloride 0.9% 500 ML IVPB SCH (07:45)
[2020-06-22] MEDS ORDERED: K-Phos Neutral 250 MG TAB PO SCH (07:45)
[2020-06-22] MEDS: Saccharomyces boulardii 250 MG CAP PO SCH (10:05)
[2020-06-22] MEDS: Cyanocobalamin (Vitamin B-12) 1,000 MCG TAB PO SCH (10:06)
[2020-06-22] MEDS: Folic Acid 1 MG TAB PO SCH (10:06)
[2020-06-22] MEDS: Carvedilol 3.125 MG TAB PO SCH ×2 (10:06→20:36)
[2020-06-22] MEDS: Magnesium Oxide 400 MG TAB PO SCH (10:06)
[2020-06-22] MEDS: Calcium Carbonate 600 MG + Vit D TAB PO SCH ×2 (10:07→17:06)
--- NOTE | 2020-06-22 11:09 | PDOC.HOSPP ---
- Subjective Encounter Date: 06/22/20 Encounter Time: 07:30 Subjective: Patient seen and examined bedside today, no overnight event, he has no fever, he is feeling much better - Objective Vital Signs & Weight: Vital Signs (12 hours) Temp Pulse Resp BP Pulse Ox 06/22/20 07:34 98.4 F 88 20 113/76 91 L 06/22/20 07:10 16 06/22/20 04:08 98.2 F 88 16 113/76 93 L 06/22/20 00:15 12 06/21/20 23:50 98.9 F 84 18 117/77 91 L Weight Weight 262 lb 5.601 oz I&O: 06/21/20 06/22/20 06/23/20 06:59 06:59 06:59 Intake Total 985 700 Output Total 475 1300 Balance 510 -600 Result Diagrams: 06/21/20 03:12 06/22/20 05:18 Hospitalist ROS - Review of Systems Constitutional: reports: weakness. denies: fever, chills, sweats, malaise, other ENT: denies: ear pain, ear discharge, nose pain, nose discharge, nose congestion, mouth pain, mouth swelling, throat pain, throat swelling, other Respiratory: denies: cough, dry, shortness of breath, hemoptysis, SOB with excertion, pleuritic pain, sputum, wheezing, other Cardiovascular: denies: chest pain, palpitations, orthopnea, paroxysmal noc. dyspnea, edema, light headedness, other Gastrointestinal: denies: nausea, vomiting, abdominal pain, diarrhea, constipation, melena, hematochezia, other Genitourinary: denies: dysuria, frequency, incontinence, hematuria, retention, other Musculoskeletal: denies: neck pain, shoulder pain, arm pain, back pain, hand pain, leg pain, foot pain, other - Medication Medications: Active Medications Generic Name Dose Route Start Last Admin Trade Name Freq PRN Reason Stop Dose Admin Acetaminophen 650 mg 06/20/20 13:35 06/21/20 08:17 Acetaminophen 325 Mg Tab PO 650 mg Q4H PRN Administration Headache/Fever/Mild Pain (1-3) Albuterol/Ipratropium 3 ml 06/21/20 13:00 06/22/20 07:10 Ipratropium/Albuterol Sulfate 3 Ml Neb NEB 3 ml [id number] OTILIA Administration Atorvastatin Calcium 10 mg 06/21/20 21:00 06/21/20 21:11 Atorvastatin Calcium 10 Mg Tab PO 10 mg HS OTILIA Administration Benzonatate 100 mg 06/21/20 08:00 06/22/20 00:22 Benzonatate 100 Mg Cap PO 100 mg Q6H PRN Administration Cough Bisacodyl 10 mg 06/21/20 08:00 06/21/20 08:25 Bisacodyl 5 Mg Tab PO 10 mg DAILYPRN PRN Administration Constipation Calcium/Vitamin D 2 tab 06/22/20 08:00 06/22/20 10:07 Calcium Carbonate 600 Mg + Vit D Tab PO 2 tab BID-WM OTILIA Administration Carvedilol 3.125 mg 06/22/20 09:00 06/22/20 10:06 Carvedilol 3.125 Mg Tab PO 3.125 mg BID OTILIA Administration Cyanocobalamin 1,000 mcg 06/21/20 09:00 06/22/20 10:06 Cyanocobalamin (Vitamin B-12) 1,000 Mcg Tab PO 1,000 mcg DAILY OTILIA Administration Folic Acid 1 mg 06/21/20 09:00 06/22/20 10:06 Folic Acid 1 Mg Tab PO 1 mg DAILY OTILIA Administration Piperacillin Sod/Tazobactam 100 mls @ 200 mls/hr 06/20/20 18:00 06/22/20 06:06 Sod 4.5 gm/ Sodium Chloride IVPB 100 mls Q6HR OTILIA Administration Potassium Phosphate 30 mmol/ 510 mls @ 63.75 mls/hr 06/22/20 07:45 06/22/20 10:04 Sodium Chloride IVPB 06/22/20 15:44 510 mls NOW OTILIA Administration Loperamide HCl 2 mg 06/21/20 08:00 06/22/20 03:22 Loperamide Hcl 2 Mg Cap PO 2 mg PRN PRN Administration Diarrhea/Loose Stools Loratadine 10 mg 06/21/20 08:00 06/22/20 00:22 Loratadine 10 Mg Tab PO 10 mg DAILYPRN PRN Administration Sinus Symptoms Magnesium Oxide 400 mg 06/22/20 09:00 06/22/20 10:06 Magnesium Oxide 400 Mg Tab PO 400 mg DAILY OTILIA Administration Ondansetron HCl 4 mg 06/20/20 13:35 06/21/20 03:56 Ondansetron Pf 4 Mg/2 Ml Vial IVP 4 mg Q6H PRN Administration Nausea/Vomiting Pantoprazole Sodium 40 mg 06/21/20 09:00 06/22/20 10:05 Pantoprazole 40 Mg Tab PO 40 mg DAILY OTILIA Administration Saccharomyces Boulardii 250 mg 06/21/20 09:00 06/22/20 10:05 Saccharomyces Boulardii 250 Mg Cap PO 250 mg DAILY OTILIA Administration Sodium Chloride 10 ml 06/20/20 21:00 06/22/20 10:07 Flush - Normal Saline 10 Ml Syringe IVF 10 ml Q12HR OTILIA Administration Hospitalist Exam Vitals: Vital Signs (12 hours) Temp Pulse Resp BP Pulse Ox 06/22/20 07:34 98.4 F 88 20 113/76 91 L 06/22/20 07:10 16 06/22/20 04:08 98.2 F 88 16 113/76 93 L 06/22/20 00:15 12 06/21/20 23:50 98.9 F 84 18 117/77 91 L Weight Weight 262 lb 5.601 oz General Appearance: NAD, awake alert Eye: PERRL, anicteric sclera ENT: normocephalic atraumatic, no oropharyngeal lesions Neck: supple, symmetric, no JVD, no thyromegaly Heart: RRR, no murmur, no gallops, no rubs Respiratory: no wheezes, no rales, no ronchi Gastrointestinal: soft, non-tender, normal bowel sounds Gastrointestinal - other findings: Obesity noted, urostomy in place Extremities: no cyanosis, no clubbing, 1+ LE edema Skin: normal turgor, no lesions Neurological: no focal deficits Musculoskeletal: normal tone, normal strength Psychiatric: normal affect, normal behavior, A&O x 3 Hosp A/P (1) UTI (urinary tract infection) Status: Acute Qualifiers: Urinary tract infection type: site unspecified Hematuria presence: without hematuria Qualified Code(s): N39.0 - Urinary tract infection, site not specif ied (2) Sepsis due to gram-negative UTI Code(s): A41.50 - GRAM-NEGATIVE SEPSIS, UNSPECIFIED; N39.0 - URINARY TRACT INFECTION, SITE NOT SPECIFIED Status: Acute Plan: Enterobacter (3) Bacteremia due to Gram-negative bacteria Code(s): R78.81 - BACTEREMIA Status: Acute Plan: Enterobacter (4) Pneumonia Code(s): J18.9 - PNEUMONIA, UNSPECIFIED ORGANISM Status: Suspected Qualifiers: Aspiration pneumonia type: unspecified Lung location: unspecified part of lung (5) Liver cirrhosis Code(s): K74.60 - UNSPECIFIED CIRRHOSIS OF LIVER Status: Chronic Qualifiers: Hepatic cirrhosis type: alcoholic cirrhosis (6) HTN (hypertension) Code(s): I10 - ESSENTIAL (PRIMARY) HYPERTENSION Status: Chronic (7) Prostate cancer Code(s): C61 - MALIGNANT NEOPLASM OF PROSTATE Status: Chronic (8) Hypokalemia Code(s): E87.6 - HYPOKALEMIA Status: Acute (9) Type 2 myocardial infarction Code(s): I21.A1 - MYOCARDIAL INFARCTION TYPE 2 Status: Acute (10) Sepsis with acute organ dysfunction Code(s): A41.9 - SEPSIS, UNSPECIFIED ORGANISM; R65.20 - SEVERE SEPSIS WITHOUT SEPTIC SHOCK Status: Acute Qualifiers: Sepsis type: sepsis due to unspecified organism Severe sepsis acute organ dysfunction type: unspecified Severe sepsis shock status: without septic shock Qualified Code(s): A41.9 - Sepsis, unspecified organism; R65.20 - Severe sepsis without septic shock (11) Pancytopenia Code(s): D61.818 - OTHER PANCYTOPENIA Status: Chronic (12) Obesity (BMI 30-39.9) Code(s): E66.9 - OBESITY, UNSPECIFIED Status: Chronic (13) Hypophosphatemia Code(s): E83.39 - OTHER DISORDERS OF PHOSPHORUS METABOLISM Status: Acute (14) Hypokalemia Code(s): E87.6 - HYPOKALEMIA Status: Acute (15) Hypocalcemia Code(s): E83.51 - HYPOCALCEMIA Status: Acute (16) Lactic acidosis Code(s): E87.2 - ACIDOSIS Status: Acute - Plan old records reviewed/req, continue antibiotics, PT/OT Continue Zosyn ID recommendation appreciated Follow-up on sensitivity result Continue current medical plan, Continue PT We will monitor in hospital Replace potassium phosphate Repeat labs tomorrow Continue calcium carbonate with vitamin D Discussed with the ID team
--- NOTE | 2020-06-22 13:45 | PQF ---
CLINICAL DOCUMENTATION CLARIFICATION FORM: Dear Dr. Lashell Black Date: 06/22/2020. 1332 Please exercise your independent, professional judgment in responding to the clarification form. Clinical indicators are provided on the bottom of this form for your review. Please check appropriate box(es): [ ] UTI due to Suprapubic Catheter [ ] UTI not due to Suprapubic Catheter UTI Site: [ ] Kidney [ ] Ureter [ ] Bladder [ ] Urethra [ ] Unable to determine Specify Organism (if known): [ ] Unknown organism [ ] Contaminated urine specimen without UTI [ x ] Other diagnosis ___UTI related with urostomy [ ] Unable to determine In addition, please specify: Present on Admission (POA): [ ] Yes [ ] No [ ] Unable to determine For continuity of documentation, please document condition throughout progress notes and discharge summary. Thank You. To be completed by CDI/Coding staff for physician review: CLINICAL INDICATORS - SIGNS / SYMPTOMS / LABS / RESULTS AND LOCATION IN MR Pt reports fevers, chills, states he usually gets this way when he has a UTI, pulse 132// pt with ileostomy divergence versus suprapubic catheter. Final DX: Severe Sepis, UTI, Elevated Troponin ( ED record) 06/20 Urine culture: Suprapubic Catheter, Presumptive Escherichia Coli, Gram Negative Rao, Presumptive Enterococcus Sp. * Assessment/ Plan: Sepsis, UTI (PN/Nikolai) 06/22 RISK FACTORS / RESULTS AND LOCATION IN MR Sepsis, UTI (Nikolai/PN) 06/22 TREATMENT / RESULTS AND LOCATION IN MR Urine cultures 06/20 ID consult (Ten/06/21) CDS Signature: Marnie Ely RN Phone #: [phone] Date: 06/22/2020 ESTUARDO
[2020-06-22 14:14] VITALS: BMI 36.6
--- NOTE | 2020-06-22 18:18 | PRG ---
DATE OF SERVICE: 06/22/2020 SUBJECTIVE: Having what he describes as pain in the right lower quadrant and lower abdominal area in the midline more or less. He has had this intermittently for a while now. He also is passing a lot of gas intermittently. He denies any respiratory symptoms and his temperature has been within normal limits now for a couple of days. OBJECTIVE: VITAL SIGNS: BP 116/78, heart rate 79, respirations 18, and O2 saturation 95 on room air. GENERAL: Chronically ill appearing, but in no distress, oriented. LUNGS: Clear. HEART: S1 and S2, regular rate. ABDOMEN: Moderately distended. Mild tenderness in the lower quadrants, particularly on the right side. Urostomy looks okay. EXTREMITIES: 2+ edema. LABORATORY DATA: White cell count down to 3.2, hemoglobin 9.7, platelets 49,000, 78% neutrophils. INR 1.2. Sodium 138, creatinine 0.91. Liver profile normal. Albumin 2.6. The Enterobacter species recovered from blood cultures, may also be in the urine. There is a gram-negative jeovany that has not yet been identified. There is also an E coli and Enterococcus. ASSESSMENT AND DISCUSSION: Prostate cancer stage 3/4 complications related to treatment, urostomy formation, now likely invasive urinary tract infection with bacteremia due to Enterobacter species. CT scan was demonstrated to have an area of transition, which would be suggestive of small bowel obstruction, most likely due to adhesions. There is mild hydronephrosis, but this has been present before. He may have increased pressures backing into the right kidney. Awaiting on the final susceptibility, so hopefully we will be able to transition him to oral ciprofloxacin for discharge planning. This area of small bowel obstruction seems to be symptomatic and probably explains the pain that the patient is feeling in the lower abdomen and this should be brought to the attention of Dr. Christopher who participated in the formation of the ileal conduit with Dr. Reich. Job ID: [id number]
[2020-06-22] MEDS: Atorvastatin Calcium 10 MG TAB PO SCH (20:36)
[2020-06-22] MEDS: Acetaminophen 325 MG TAB PO PRN (20:36)
[2020-06-23] MEDS: Loperamide HCl 2 MG CAP PO PRN (03:54)
[2020-06-23] MEDS: Piperacillin/Tazobactam 4.5 GM in Sodium Chloride 0.9% 100 ML IVPB SCH ×4 (05:32→23:07)
[2020-06-23 06:39] LABS: Magnesium 1.8 mg/dL (1.6-2.6); Phosphorus 1.8 mg/dL (2.3-4.7)
[2020-06-23] MEDS ORDERED: Sodium Phosphate 15 MMOL in Sodium Chloride 0.9% 250 ML 250 ML IVPB SCH (08:00)
[2020-06-23] MEDS: Folic Acid 1 MG TAB PO SCH (08:35)
[2020-06-23] MEDS: Magnesium Oxide 400 MG TAB PO SCH (08:35)
[2020-06-23] MEDS: Carvedilol 3.125 MG TAB PO SCH ×2 (08:35→19:55)
[2020-06-23] MEDS: Saccharomyces boulardii 250 MG CAP PO SCH (08:35)
[2020-06-23] MEDS: Cyanocobalamin (Vitamin B-12) 1,000 MCG TAB PO SCH (08:36)
[2020-06-23] MEDS: Calcium Carbonate 600 MG + Vit D TAB PO SCH ×2 (08:36→18:13)
--- NOTE | 2020-06-23 10:54 | PDOC.HOSPP ---
- Subjective Encounter Date: 06/23/20 Encounter Time: 08:00 Subjective: Patient seen and examined bedside today, patient reports bloated, he feels some vague discomfort in his abdomen, no fever, no nausea or vomiting, he has diarrhea, - Objective Vital Signs & Weight: Vital Signs (12 hours) Temp Pulse Resp BP Pulse Ox 06/23/20 08:17 16 06/23/20 07:35 97.8 F 82 18 125/88 92 L 06/23/20 04:24 97.5 F L 89 18 128/82 93 L 06/23/20 00:05 98.4 F 89 20 118/78 92 L Weight Admit Weight 262 lb 5.6 oz Weight 262 lb 5.601 oz I&O: 06/22/20 06/23/20 06/24/20 06:59 06:59 06:59 Intake Total 700 2750 Output Total 1300 2700 Balance -600 50 Result Diagrams: 06/21/20 03:12 06/23/20 05:04 Hospitalist ROS - Review of Systems Constitutional: reports: weakness, malaise. denies: fever, chills, sweats, other Eyes: denies: pain, vision change, conjunctivae inflammation, eyelid inflammation, redness, other ENT: denies: ear pain, ear discharge, nose pain, nose discharge, nose congestion, mouth pain, mouth swelling, throat pain, throat swelling, other Respiratory: denies: cough, dry, shortness of breath, hemoptysis, SOB with excertion, pleuritic pain, sputum, wheezing, other Cardiovascular: reports: edema. denies: chest pain, palpitations, orthopnea, paroxysmal noc. dyspnea, light headedness, other Gastrointestinal: reports: abdominal pain, diarrhea. denies: nausea, vomiting, constipation, melena, hematochezia, other Genitourinary: denies: dysuria, frequency, incontinence, hematuria, retention, other Musculoskeletal: denies: neck pain, shoulder pain, arm pain, back pain, hand pain, leg pain, foot pain, other Skin: denies: rash, lesions, lisandra, bruising, other - Medication Medications: Active Medications Generic Name Dose Route Start Last Admin Trade Name Freq PRN Reason Stop Dose Admin Acetaminophen 650 mg 06/20/20 13:35 06/22/20 20:36 Acetaminophen 325 Mg Tab PO 650 mg Q4H PRN Administration Headache/Fever/Mild Pain (1-3) Albuterol/Ipratropium 3 ml 06/21/20 13:00 06/23/20 08:17 Ipratropium/Albuterol Sulfate 3 Ml Neb NEB 3 ml [id number] OTILIA Administration Atorvastatin Calcium 10 mg 06/21/20 21:00 06/22/20 20:36 Atorvastatin Calcium 10 Mg Tab PO 10 mg HS OTILIA Administration Benzonatate 100 mg 06/21/20 08:00 06/22/20 00:22 Benzonatate 100 Mg Cap PO 100 mg Q6H PRN Administration Cough Bisacodyl 10 mg 06/21/20 08:00 06/21/20 08:25 Bisacodyl 5 Mg Tab PO 10 mg DAILYPRN PRN Administration Constipation Calcium Carbonate 1,000 mg 06/20/20 13:35 06/22/20 14:29 Calcium Carbonate 500 Mg Chewtab PO 1,000 mg Q4H PRN Administration Heartburn or Indigestion Calcium/Vitamin D 2 tab 06/22/20 08:00 06/23/20 08:36 Calcium Carbonate 600 Mg + Vit D Tab PO 2 tab BID-WM OTILIA Administration Carvedilol 3.125 mg 06/22/20 09:00 06/23/20 08:35 Carvedilol 3.125 Mg Tab PO 3.125 mg BID OTILIA Administration Cyanocobalamin 1,000 mcg 06/21/20 09:00 06/23/20 08:36 Cyanocobalamin (Vitamin B-12) 1,000 Mcg Tab PO 1,000 mcg DAILY OTILIA Administration Folic Acid 1 mg 06/21/20 09:00 06/23/20 08:35 Folic Acid 1 Mg Tab PO 1 mg DAILY OTILIA Administration Piperacillin Sod/Tazobactam 100 mls @ 200 mls/hr 06/20/20 18:00 06/23/20 05:32 Sod 4.5 gm/ Sodium Chloride IVPB 100 mls Q6HR OTILIA Administration Sodium Phosphate 15 mmol/ 255 mls @ 42.5 mls/hr 06/23/20 08:00 06/23/20 08:34 Sodium Chloride IVPB 06/23/20 13:59 255 mls NOW OTILIA Administration Loperamide HCl 2 mg 06/21/20 08:00 06/23/20 03:54 Loperamide Hcl 2 Mg Cap PO 2 mg PRN PRN Administration Diarrhea/Loose Stools Loratadine 10 mg 06/21/20 08:00 06/22/20 00:22 Loratadine 10 Mg Tab PO 10 mg DAILYPRN PRN Administration Sinus Symptoms Magnesium Oxide 400 mg 06/22/20 09:00 06/23/20 08:35 Magnesium Oxide 400 Mg Tab PO 400 mg DAILY OTILIA Administration Ondansetron HCl 4 mg 06/20/20 13:35 06/21/20 03:56 Ondansetron Pf 4 Mg/2 Ml Vial IVP 4 mg Q6H PRN Administration Nausea/Vomiting Pantoprazole Sodium 40 mg 06/21/20 09:00 06/23/20 08:35 Pantoprazole 40 Mg Tab PO 40 mg DAILY OTILIA Administration Saccharomyces Boulardii 250 mg 06/21/20 09:00 06/23/20 08:35 Saccharomyces Boulardii 250 Mg Cap PO 250 mg DAILY OTILIA Administration Sodium Chloride 10 ml 06/20/20 21:00 06/23/20 08:36 Flush - Normal Saline 10 Ml Syringe IVF 10 ml Q12HR OTILIA Administration Hospitalist Exam Vitals: Vital Signs (12 hours) Temp Pulse Resp BP Pulse Ox 06/23/20 08:17 16 06/23/20 07:35 97.8 F 82 18 125/88 92 L 06/23/20 04:24 97.5 F L 89 18 128/82 93 L 06/23/20 00:05 98.4 F 89 20 118/78 92 L Weight Admit Weight 262 lb 5.6 oz Weight 262 lb 5.601 oz General Appearance: NAD, awake alert Eye: PERRL, anicteric sclera ENT: normocephalic atraumatic, no oropharyngeal lesions Neck: supple, symmetric, no JVD, no thyromegaly Heart: RRR, no murmur, no gallops, no rubs Respiratory: no wheezes, no rales, no ronchi Gastrointestinal: soft, distended Gastrointestinal - other findings: Urostomy in place, no peritoneal sign Extremities: 1+ LE edema Skin: normal turgor, no lesions Neurological: no focal deficits Musculoskeletal: normal tone, normal strength Psychiatric: normal affect, normal behavior Hosp A/P (1) UTI (urinary tract infection) Status: Acute Qualifiers: Urinary tract infection type: site unspecified Hematuria presence: without hematuria Qualified Code(s): N39.0 - Urinary tract infection, site not specified (2) Sepsis due to gram-negative UTI Code(s): A41.50 - GRAM-NEGATIVE SEPSIS, UNSPECIFIED; N39.0 - URINARY TRACT INFECTION, SITE NOT SPECIFIED Status: Acute Plan: Enterobacter bacteremia (3) Bacteremia due to Gram-negative bacteria Code(s): R78.81 - BACTEREMIA Status: Acute Plan: Enterobacter bacteremia (4) Pneumonia Code(s): J18.9 - PNEUMONIA, UNSPECIFIED ORGANISM Status: Suspected Qualifiers: Aspiration pneumonia type: unspecified Lung location: unspecified part of lung (5) Liver cirrhosis Code(s): K74.60 - UNSPECIFIED CIRRHOSIS OF LIVER Status: Chronic Qualifiers: Hepatic cirrhosis type: alcoholic cirrhosis (6) HTN (hypertension) Code(s): I10 - ESSENTIAL (PRIMARY) HYPERTENSION Status: Chronic (7) Prostate cancer Code(s): C61 - MALIGNANT NEOPLASM OF PROSTATE Status: Chronic (8) Hypokalemia Code(s): E87.6 - HYPOKALEMIA Status: Acute (9) Type 2 myocardial infarction Code(s): I21.A1 - MYOCARDIAL INFARCTION TYPE 2 Status: Acute (10) Sepsis with acute organ dysfunction Code(s): A41.9 - SEPSIS, UNSPECIFIED ORGANISM; R65.20 - SEVERE SEPSIS WITHOUT SEPTIC SHOCK Status: Acute Qualifiers: Sepsis type: sepsis due to unspecified organism Severe sepsis acute organ dysfunction type: unspecified Severe sepsis shock status: without septic shock Qualified Code(s): A41.9 - Sepsis, unspecified organism; R65.20 - Severe sepsis without septic shock (11) Pancytopenia Code(s): D61.818 - OTHER PANCYTOPENIA Status: Chronic (12) Obesity (BMI 30-39.9) Code(s): E66.9 - OBESITY, UNSPECIFIED Status: Chronic (13) Hypophosphatemia Code(s): E83.39 - OTHER DISORDERS OF PHOSPHORUS METABOLISM Status: Acute (14) Hypokalemia Code(s): E87.6 - HYPOKALEMIA Status: Acute (15) Hypocalcemia Code(s): E83.51 - HYPOCALCEMIA Status: Acute (16) Lactic acidosis Code(s): E87.2 - ACIDOSIS Status: Acute - Plan old records reviewed/req, continue antibiotics Patient has positive blood culture for Enterobacter cloacae, urine culture is growing polymicrobial organism, patient is on Zosyn, infectious disease team is following, on admission CT abdomen showed suspected finding of small bowel obstruction and the patient has vague abdominal discomfort, he has he does not have any obvious nausea or vomiting, at this point will consult general surgery for evaluation, meanwhile we will continue with Zosyn, today we will replace sodium phosphate for low phosphorus, on discharge probably will be able to send him on oral ciprofloxacin for total 2 weeks duration, will continue to monitor while in hospital
[2020-06-23] MEDS: HYDROcodone/Acetaminophen 5/325 mg Tablet PO PRN (19:22)
[2020-06-23] MEDS: Atorvastatin Calcium 10 MG TAB PO SCH (19:55)
[2020-06-24] MEDS: Piperacillin/Tazobactam 4.5 GM in Sodium Chloride 0.9% 100 ML IVPB SCH (05:25)
--- NOTE | 2020-06-24 08:46 | CON ---
DATE OF CONSULTATION: 06/24/2020 CHIEF COMPLAINT: Partial small bowel obstruction. HISTORY OF PRESENT ILLNESS: This is a 65-year-old male with a history of ileal conduit for bladder malignancy, who now presents with chronic abdominal bloating, lower abdominal pain, pain described as dull ache, diffuse in the low abdomen. He has no nausea, no vomiting, although he feels bloated after meals. CT scan showed evidence of chronic obstruction near his previous surgery for ileal conduit. The patient was told he had cirrhosis in the past. He underwent hepatitis treatment. He has cirrhotic changes and ascites on this current CT scan. He has been found to have a significant amount of bacteria in his urine. MEDICAL HISTORY: Hypertension, prostate cancer, cirrhosis, steatohepatitis, hepatitis C, hypertension. SURGICAL HISTORY: Ileal conduit, prostatectomy. ALLERGIES: NONE. SOCIAL HISTORY: Nonsmoker. No alcohol. No history of alcohol. MEDICATIONS: See list. REVIEW OF SYSTEMS: Ten-system review of systems is otherwise negative unless described above. PHYSICAL EXAMINATION: VITAL SIGNS: Blood pressure 143/89, his pulse is 100. His respirations are 18. He is afebrile. HEENT: Sclerae anicteric. Oropharynx clear. NECK: No lymphadenopathy. CHEST: Clear. HEART: Regular rate. ABDOMEN: Soft, protuberant. He has dilated veins in his abdominal wall consistent with portal hypertension. He has well-healed midline incision. Ileal conduit in the right lower quadrant. No hernia. LABORATORY DATA: White blood cell count is 3, hemoglobin 9.7, platelet count is 49. Sodium 138, potassium 4.0, creatinine 1.3. Bilirubin 0.5, alkaline phosphatase 56, albumin 2.6. CT scan shows evidence of dilated small intestine proximally decompressed distally in the area of ileal conduit. ASSESSMENT: 1. Chronic likely partial small bowel obstruction secondary to surgery for ileal conduit. 2. Cirrhosis of the liver, suspect this is more advanced now given his chronic thrombocytopenia, his low albumin, and his abdominal findings. PLAN: We will get small bowel follow-through. I suspect that will be normal. This could all just be cirrhosis type changes causing his abdominal symptoms. Job ID: [id number]
[2020-06-24] MEDS: Ondansetron PF 4 MG/2 ML Vial IVP PRN (09:22)
--- NOTE | 2020-06-24 09:42 | PDOC.HOSPP ---
- Subjective Encounter Date: 06/24/20 Encounter Time: 07:40 Subjective: Patient is passing gas, he has less abdominal pain, no nausea or vomiting, no fever - Objective Vital Signs & Weight: Vital Signs (12 hours) Temp Pulse Resp BP Pulse Ox 06/24/20 08:28 16 06/24/20 07:34 97.8 F 100 18 143/89 H 94 L 06/24/20 00:37 12 06/24/20 00:29 97.8 F 88 16 125/88 92 L Weight Admit Weight 262 lb 5.6 oz Weight 262 lb 5.601 oz I&O: 06/23/20 06/24/20 06/25/20 06:59 06:59 06:59 Intake Total 2750 1500 Output Total 2700 1350 Balance 50 150 Result Diagrams: 06/21/20 03:12 06/23/20 05:04 Hospitalist ROS - Review of Systems ENT: denies: ear pain, ear discharge, nose pain, nose discharge, nose congestion, mouth pain, mouth swelling, throat pain, throat swelling, other Respiratory: denies: cough, dry, shortness of breath, hemoptysis, SOB with e xcertion, pleuritic pain, sputum, wheezing, other Cardiovascular: denies: chest pain, palpitations, orthopnea, paroxysmal noc. dyspnea, edema, light headedness, other Gastrointestinal: denies: nausea, vomiting, abdominal pain, diarrhea, constipation, melena, hematochezia, other Genitourinary: denies: dysuria, frequency, incontinence, hematuria, retention, other Musculoskeletal: denies: neck pain, shoulder pain, arm pain, back pain, hand pain, leg pain, foot pain, other - Medication Medications: Active Medications Generic Name Dose Route Start Last Admin Trade Name Freq PRN Reason Stop Dose Admin Acetaminophen 650 mg 06/20/20 13:35 06/22/20 20:36 Acetaminophen 325 Mg Tab PO 650 mg Q4H PRN Administration Headache/Fever/Mild Pain (1-3) Hydrocodone Bitart/Acetaminophen 1 tab 06/21/20 08:00 06/23/20 19:22 Hydrocodone/Acetaminophen 5/325 Mg Tablet PO 1 tab Q4H PRN Administration Moderate Pain (4-6) Albuterol/Ipratropium 3 ml 06/21/20 13:00 06/24/20 08:28 Ipratropium/Albuterol Sulfate 3 Ml Neb NEB 3 ml [id number] OTILIA Administration Atorvastatin Calcium 10 mg 06/21/20 21:00 06/23/20 19:55 Atorvastatin Calcium 10 Mg Tab PO 10 mg HS OTILIA Administration Benzonatate 100 mg 06/21/20 08:00 06/22/20 00:22 Benzonatate 100 Mg Cap PO 100 mg Q6H PRN Administration Cough Bisacodyl 10 mg 06/21/20 08:00 06/21/20 08:25 Bisacodyl 5 Mg Tab PO 10 mg DAILYPRN PRN Administration Constipation Calcium Carbonate 1,000 mg 06/20/20 13:35 06/22/20 14:29 Calcium Carbonate 500 Mg Chewtab PO 1,000 mg Q4H PRN Administration Heartburn or Indigestion Calcium/Vitamin D 2 tab 06/22/20 08:00 06/23/20 18:13 Calcium Carbonate 600 Mg + Vit D Tab PO 2 tab BID-WM OTILIA Administration Carvedilol 3.125 mg 06/22/20 09:00 06/23/20 19:55 Carvedilol 3.125 Mg Tab PO 3.125 mg BID OTILIA Administration Cyanocobalamin 1,000 mcg 06/21/20 09:00 06/23/20 08:36 Cyanocobalamin (Vitamin B-12) 1,000 Mcg Tab PO 1,000 mcg DAILY OTILIA Administration Folic Acid 1 mg 06/21/20 09:00 06/23/20 08:35 Folic Acid 1 Mg Tab PO 1 mg DAILY OTILIA Administration Loperamide HCl 2 mg 06/21/20 08:00 06/23/20 03:54 Loperamide Hcl 2 Mg Cap PO 2 mg PRN PRN Administration Diarrhea/Loose Stools Loratadine 10 mg 06/21/20 08:00 06/22/20 00:22 Loratadine 10 Mg Tab PO 10 mg DAILYPRN PRN Administration Sinus Symptoms Magnesium Oxide 400 mg 06/22/20 09:00 06/23/20 08:35 Magnesium Oxide 400 Mg Tab PO 400 mg DAILY OTILIA Administration Ondansetron HCl 4 mg 06/20/20 13:35 06/24/20 09:22 Ondansetron Pf 4 Mg/2 Ml Vial IVP 4 mg Q6H PRN Administration Nausea/Vomiting Pantoprazole Sodium 40 mg 06/21/20 09:00 06/23/20 08:35 Pantoprazole 40 Mg Tab PO 40 mg DAILY OTILIA Administration Saccharomyces Boulardii 250 mg 06/21/20 09:00 06/23/20 08:35 Saccharomyces Boulardii 250 Mg Cap PO 250 mg DAILY OTILIA Administration Sodium Chloride 10 ml 06/20/20 21:00 06/23/20 19:58 Flush - Normal Saline 10 Ml Syringe IVF 10 ml Q12HR OTILIA Administration Hospitalist Exam Vitals: Vital Signs (12 hours) Temp Pulse Resp BP Pulse Ox 06/24/20 08:28 16 06/24/20 07:34 97.8 F 100 18 143/89 H 94 L 06/24/20 00:37 12 06/24/20 00:29 97.8 F 88 16 125/88 92 L Weight Admit Weight 262 lb 5.6 oz Weight 262 lb 5.601 oz General Appearance: NAD, awake alert Eye: PERRL, anicteric sclera ENT: normocephalic atraumatic, no oropharyngeal lesions Neck: supple, symmetric, no JVD, no thyromegaly Heart: no murmur, no gallops, no rubs Respiratory: no wheezes, no rales, no ronchi Gastrointestinal: soft Gastrointestinal - other findings: Obesity, urostomy in place Extremities: no clubbing, 1+ LE edema Skin: normal turgor, no lesions Neurological: no focal deficits Musculoskeletal: normal tone, normal strength Psychiatric: normal affect, normal behavior Hosp A/P (1) UTI (urinary tract infection) Status: Acute Qualifiers: Urinary tract infection type: site unspecified Hematuria presence: without hematuria Qualified Code(s): N39.0 - Urinary tract infection, site not specified Plan: Urostomy related UTI (2) Sepsis due to gram-negative UTI Code(s): A41.50 - GRAM-NEGATIVE SEPSIS, UNSPECIFIED; N39.0 - URINARY TRACT INFECTION, SITE NOT SPECIFIED Status: Acute (3) Bacteremia due to Gram-negative bacteria Code(s): R78.81 - BACTEREMIA Status: Acute (4) Pneumonia Code(s): J18.9 - PNEUMONIA, UNSPECIFIED ORGANISM Status: Suspected Qualifiers: Aspiration pneumonia type: unspecified Lung location: unspecified part of lung (5) Liver cirrhosis Code(s): K74.60 - UNSPECIFIED CIRRHOSIS OF LIVER Status: Chronic Qualifiers: Hepatic cirrhosis type: alcoholic cirrhosis (6) HTN (hypertension) Code(s): I10 - ESSENTIAL (PRIMARY) HYPERTENSION Status: Chronic (7) Prostate cancer Code(s): C61 - MALIGNANT NEOPLASM OF PROSTATE Status: Chronic (8) Hypokalemia Code(s): E87.6 - HYPOKALEMIA Status: Acute (9) Type 2 myocardial infarction Code(s): I21.A1 - MYOCARDIAL INFARCTION TYPE 2 Status: Acute (10) Sepsis with acute organ dysfunction Code(s): A41.9 - SEPSIS, UNSPECIFIED ORGANISM; R65.20 - SEVERE SEPSIS WITHOUT SEPTIC SHOCK Status: Acute Qualifiers: Sepsis type: sepsis due to unspecified organism Severe sepsis acute organ dysfunction type: unspecified Severe sepsis shock status: without septic shock Qualified Code(s): A41.9 - Sepsis, unspecified organism; R65.20 - Severe sepsis without septic shock (11) Pancytopenia Code(s): D61.818 - OTHER PANCYTOPENIA Status: Chronic (12) Obesity (BMI 30-39.9) Code(s): E66.9 - OBESITY, UNSPECIFIED Status: Chronic (13) Hypophosphatemia Code(s): E83.39 - OTHER DISORDERS OF PHOSPHORUS METABOLISM Status: Acute (14) Hypokalemia Code(s): E87.6 - HYPOKALEMIA Status: Acute (15) Hypocalcemia Code(s): E83.51 - HYPOCALCEMIA Status: Acute (16) Lactic acidosis Code(s): E87.2 - ACIDOSIS Status: Acute - Plan old records reviewed/req, continue antibiotics Today's small bowel follow-through Change Zosyn to Cipro based on culture result Ambulate as tolerated Medication reviewed and continue provide symptomatic and supportive care Overall patient is clinically better
[2020-06-24] MEDS: Calcium Carbonate 600 MG + Vit D TAB PO SCH ×2 (12:29→18:43)
[2020-06-24] MEDS: Magnesium Oxide 400 MG TAB PO SCH (12:30)
[2020-06-24] MEDS: Saccharomyces boulardii 250 MG CAP PO SCH (12:30)
[2020-06-24] MEDS: Folic Acid 1 MG TAB PO SCH (12:30)
[2020-06-24] MEDS: Carvedilol 3.125 MG TAB PO SCH ×2 (12:30→19:36)
[2020-06-24] MEDS: Cyanocobalamin (Vitamin B-12) 1,000 MCG TAB PO SCH (12:30)
[2020-06-24] MEDS: HYDROcodone/Acetaminophen 5/325 mg Tablet PO PRN (14:00)
[2020-06-24] MEDS ORDERED: MD-Gastroview 120 ML BOT ONE (14:45)
--- NOTE | 2020-06-24 15:22 | RAD ---
Exam: Small bowel series FINDINGS: [employer] Service Attendant film demonstrates markedly dilated small bowel as well as some air-filled dilated colon. Oral Gastrografin was given. Imaging was performed without to 3 hours which demonstrates some fairly moderate to marked dilated mid small bowel. At the 3 hour time interval there is noted to be nondilated distal small bowel as well as emptying in the colon. IMPRESSION: Findings consistent with partial mid-distal small bowel obstruction with proximal small bowel dilatat ion.
[2020-06-24] MEDS: Atorvastatin Calcium 10 MG TAB PO SCH (19:36)
[2020-06-25] MEDS: Folic Acid 1 MG TAB PO SCH (08:32)
[2020-06-25] MEDS: Carvedilol 3.125 MG TAB PO SCH ×2 (08:32→20:17)
[2020-06-25] MEDS: Magnesium Oxide 400 MG TAB PO SCH (08:32)
[2020-06-25] MEDS: Calcium Carbonate 600 MG + Vit D TAB PO SCH ×2 (08:32→18:16)
[2020-06-25] MEDS: Saccharomyces boulardii 250 MG CAP PO SCH (08:32)
[2020-06-25] MEDS: Cyanocobalamin (Vitamin B-12) 1,000 MCG TAB PO SCH (08:32)
--- NOTE | 2020-06-25 09:15 | PRG ---
DATE OF SERVICE: 06/25/2020 SUBJECTIVE: Mr. Castillo had multiple bowel movements yesterday after his small-bowel follow through. He feels better today. He feels less bloated. OBJECTIVE: VITAL SIGNS: He is afebrile. His vital signs are stable. CHEST: Clear. HEART: Regular rate. ABDOMEN: Soft, less distended, nontender, nondistended. Small bowel series showed passage. At 3 hours, he did have contrast in the colon. ASSESSMENT: Likely chronic partial small-bowel obstruction in the setting of ileus from this urinary tract infection. He was admitted for in the setting of cirrhosis. PLAN: No plans for surgery. Recommend diet. Advance as tolerated. Due to his underlying cirrhosis with ascites, he is not a great candidate for surgery. He would probably do poorly. I think the big component of this is functional and related to his UTI. We will follow charan Job ID: [id number]
--- NOTE | 2020-06-25 09:20 | PDOC.HOSPP ---
- Subjective Encounter Date: 06/25/20 Encounter Time: 07:30 Subjective: Patient had several bowel movement yesterday after contrast, patient sometimes feels intermittent crampy abdominal pain, he feels sometimes bloated but this is going on for long period of time, - Objective Vital Signs & Weight: Vital Signs (12 hours) Temp Pulse Resp BP Pulse Ox 06/25/20 08:16 12 06/25/20 07:18 98.0 F 82 18 121/77 91 L 06/25/20 04:39 98.1 F 83 18 107/71 92 L 06/25/20 00:18 12 06/25/20 00:00 97.8 F 84 18 114/77 94 L Weight Admit Weight 262 lb 5.6 oz Weight 262 lb 5.601 oz I&O: 06/24/20 06/25/20 06/26/20 06:59 06:59 06:59 Intake Total 1500 1400 Output Total 1350 975 Balance 150 425 Result Diagrams: 06/21/20 03:12 06/23/20 05:04 Hospitalist ROS - Review of Systems ENT: denies: ear pain, ear discharge, nose pain, nose discharge, nose congestion, mouth pain, mouth swelling, throat pain, throat swelling, other Respiratory: denies: cough, dry, shortness of breath, hemoptysis, SOB with excertion, pleuritic pain, sputum, wheezing, other Cardiovascular: denies: chest pain, palpitations, orthopnea, paroxysmal noc. dyspnea, edema, light headedness, other Gastrointestinal: reports: abdominal pain. denies: nausea, vomiting, diarrhea, constipation, melena, hematochezia, other Genitourinary: denies: dysuria, frequency, incontinence, hematuria, retention, other Musculoskeletal: denies: neck pain, shoulder pain, arm pain, back pain, hand pain, leg pain, foot pain, other - Medication Medications: Active Medications Generic Name Dose Route Start Last Admin Trade Name Freq PRN Reason Stop Dose Admin Acetaminophen 650 mg 06/20/20 13:35 06/22/20 20:36 Acetaminophen 325 Mg Tab PO 650 mg Q4H PRN Administration Headache/Fever/Mild Pain (1-3) Hydrocodone Bitart/Acetaminophen 1 tab 06/21/20 08:00 06/24/20 14:00 Hydrocodone/Acetaminophen 5/325 Mg Tablet PO 1 tab Q4H PRN Administration Moderate Pain (4-6) Albuterol/Ipratropium 3 ml 06/21/20 13:00 06/25/20 08:16 Ipratropium/Albuterol Sulfate 3 Ml Neb NEB 3 ml [id number] OTILIA Administration Atorvastatin Calcium 10 mg 06/21/20 21:00 06/24/20 19:36 Atorvastatin Calcium 10 Mg Tab PO 10 mg HS OTILIA Administration Benzonatate 100 mg 06/21/20 08:00 06/22/20 00:22 Benzonatate 100 Mg Cap PO 100 mg Q6H PRN Administration Cough Bisacodyl 10 mg 06/21/20 08:00 06/21/20 08:25 Bisacodyl 5 Mg Tab PO 10 mg DAILYPRN PRN Administration Constipation Calcium Carbonate 1,000 mg 06/20/20 13:35 06/22/20 14:29 Calcium Carbonate 500 Mg Chewtab PO 1,000 mg Q4H PRN Administration Heartburn or Indigestion Calcium/Vitamin D 2 tab 06/22/20 08:00 06/25/20 08:32 Calcium Carbonate 600 Mg + Vit D Tab PO 2 tab BID-WM OTILIA Administration Carvedilol 3.125 mg 06/22/20 09:00 06/25/20 08:32 Carvedilol 3.125 Mg Tab PO 3.125 mg BID OTILIA Administration Cyanocobalamin 1,000 mcg 06/21/20 09:00 06/25/20 08:32 Cyanocobalamin (Vitamin B-12) 1,000 Mcg Tab PO 1,000 mcg DAILY OTILIA Administration Folic Acid 1 mg 06/21/20 09:00 06/25/20 08:32 Folic Acid 1 Mg Tab PO 1 mg DAILY OTILIA Administration Ciprofloxacin/Dextrose 400 mg/ 200 mls @ 200 mls/hr 06/24/20 09:00 06/25/20 08:32 Device IVPB 200 mls Q12HR OTILIA Administration Loperamide HCl 2 mg 06/21/20 08:00 06/23/20 03:54 Loperamide Hcl 2 Mg Cap PO 2 mg PRN PRN Administration Diarrhea/Loose Stools Loratadine 10 mg 06/21/20 08:00 06/22/20 00:22 Loratadine 10 Mg Tab PO 10 mg DAILYPRN PRN Administration Sinus Symptoms Magnesium Oxide 400 mg 06/22/20 09:00 06/25/20 08:32 Magnesium Oxide 400 Mg Tab PO 400 mg DAILY OTILIA Administration Ondansetron HCl 4 mg 06/20/20 13:35 06/24/20 09:22 Ondansetron Pf 4 Mg/2 Ml Vial IVP 4 mg Q6H PRN Administration Nausea/Vomiting Pantoprazole Sodium 40 mg 06/21/20 09:00 06/25/20 08:32 Pantoprazole 40 Mg Tab PO 40 mg DAILY OTILIA Administration Saccharomyces Boulardii 250 mg 06/21/20 09:00 06/25/20 08:32 Saccharomyces Boulardii 250 Mg Cap PO 250 mg DAILY OTILIA Administration Sodium Chloride 10 ml 06/20/20 21:00 06/25/20 08:33 Flush - Normal Saline 10 Ml Syringe IVF 10 ml Q12HR OTILIA Administration Hospitalist Exam Vitals: Vital Signs (12 hours) Temp Pulse Resp BP Pulse Ox 06/25/20 08:16 12 06/25/20 07:18 98.0 F 82 18 121/77 91 L 06/25/20 04:39 98.1 F 83 18 107/71 92 L 06/25/20 00:18 12 06/25/20 00:00 97.8 F 84 18 114/77 94 L Weight Admit Weight 262 lb 5.6 oz Weight 262 lb 5.601 oz General Appearance: NAD, awake alert Eye: PERRL, anicteric sclera ENT: normocephalic atraumatic, no oropharyngeal lesions Neck: supple, symmetric, no JVD, no thyromegaly Heart: RRR, no murmur, no gallops, no rubs Respiratory: no rales, wheezes Gastrointestinal: soft Gastrointestinal - other findings: Overall distended versus obesity, no peritoneal sign, urostomy in place Extremities: no clubbing, 1+ LE edema Skin: normal turgor, no lesions Neurological: no focal deficits Musculoskeletal: normal tone, normal strength Psychiatric: normal affect, normal behavior Hosp A/P (1) UTI (urinary tract infection) Status: Acute Qualifiers: Urinary tract infection type: site unspecified Hematuria presence: without hematuria Qualified Code(s): N39.0 - Urinary tract infection, site not specified (2) Sepsis due to gram-negative UTI Code(s): A41.50 - GRAM-NEGATIVE SEPSIS, UNSPECIFIED; N39.0 - URINARY TRACT INFECTION, SITE NOT SPECIFIED Status: Acute (3) Bacteremia due to Gram-negative bacteria Code(s): R78.81 - BACTEREMIA Status: Acute (4) Pneumonia Code(s): J18.9 - PNEUMONIA, UNSPECIFIED ORGANISM Status: Suspected Qualifiers: Aspiration pneumonia type: unspecified Lung location: unspecified part of lung (5) Liver cirrhosis Code(s): K74.60 - UNSPECIFIED CIRRHOSIS OF LIVER Status: Chronic Qualifiers: Hepatic cirrhosis type: alcoholic cirrhosis (6) HTN (hypertension) Code(s): I10 - ESSENTIAL (PRIMARY) HYPERTENSION Status: Chronic (7) Prostate cancer Code(s): C61 - MALIGNANT NEOPLASM OF PROSTATE Status: Chronic (8) Hypokalemia Code(s): E87.6 - HYPOKALEMIA Status: Acute (9) Type 2 myocardial infarction Code(s): I21.A1 - MYOCARDIAL INFARCTION TYPE 2 Status: Acute (10) Sepsis with acute organ dysfunction Code(s): A41.9 - SEPSIS, UNSPECIFIED ORGANISM; R65.20 - SEVERE SEPSIS WITHOUT SEPTIC SHOCK Status: Acute Qualifiers: Sepsis type: sepsis due to unspecified organism Severe sepsis acute organ dysfunction type: unspecified Severe sepsis shock status: without septic shock Qualified Code(s): A41.9 - Sepsis, unspecified organism; R65.20 - Severe sepsis without septic shock (11) Pancytopenia Code(s): D61.818 - OTHER PANCYTOPENIA Status: Chronic (12) Obesity (BMI 30-39.9) Code(s): E66.9 - OBESITY, UNSPECIFIED Status: Chronic (13) Hypophosphatemia Code(s): E83.39 - OTHER DISORDERS OF PHOSPHORUS METABOLISM Status: Acute (14) Hypokalemia Code(s): E87.6 - HYPOKALEMIA Status: Acute (15) Hypocalcemia Code(s): E83.51 - HYPOCALCEMIA Status: Acute (16) Lactic acidosis Code(s): E87.2 - ACIDOSIS Status: Acute (17) Partial small bowel obstruction Code(s): K56.600 - PARTIAL INTESTINAL OBSTRUCTION, UNSPECIFIED TO CAUSE Status: Acute - Plan old records reviewed/req, continue antibiotics, PT/OT Small bowel x-ray showing partial small bowel obstruction, based on history most likely patient has chronic partial small bowel obstruction, this patient is not a great candidate for any kind of surgical intervention because of his advanced liver cirrhosis with high mortality rate, Dietary education given, continue full liquid diet, Continue IV Cipro today Ambulate as tolerated We will repeat labs tomorrow We will consider discharging him home tomorrow with outpatient follow-up.
[2020-06-25] MEDS ORDERED: Furosemide 20 MG TAB PO SCH (09:30)
[2020-06-25] MEDS ORDERED: Spironolactone 100 MG TAB PO SCH (09:30)
[2020-06-25] MEDS: HYDROcodone/Acetaminophen 5/325 mg Tablet PO PRN (14:41)
[2020-06-25] MEDS: Atorvastatin Calcium 10 MG TAB PO SCH (20:17)
[2020-06-26] MEDS: Ondansetron PF 4 MG/2 ML Vial IVP PRN (03:52)
[2020-06-26 06:11] LABS: #Eosinphils 0.1 thou/uL (0.0-0.7); #Lymphocytes 0.6 thou/uL (1.20-3.40); #Monocytes 0.4 thou/uL (0.11-0.59); #Neutrophils 2.2 thou/uL (1.40-6.50); %Basophils 1.2 % (0.0-1.0); %Eosinophils 2.2 % (0.0-10.0); %Lymphocytes 18.8 % (21.0-51.0); %Monocytes 10.9 % (0.0-10.0); %Neutrophils 66.9 % (42.0-75.0); Hemoglobin 9.3 g/dL (14.0-18.0); Mean Corpuscular Hemoglobin 26.9 pg (27.0-31.0); Mean Corpuscular Volume 83.8 fL (78.0-98.0); Mean Platelet Volume 10.6 fL (7.4-10.4); Platelet Count 92 thou/uL (130-400); Red Blood Cell (RBC) Count 3.45 mill/uL (4.70-6.10); White Blood Cell (WBC) Count 3.3 thou/uL (4.8-10.8)
[2020-06-26 06:28] LABS: ALT (SGPT) Less than 7 U/L (8-55); AST (SGOT) 15 U/L (5-34); Albumin 2.7 g/dL (3.4-4.8); Alkaline Phosphatase 64 U/L (40-110); Anion Gap 8 mmol/L (10-20); BUN (Urea Nitrogen) 7 mg/dL (8.4-25.7); Bilirubin, Total 0.5 mg/dL (0.2-1.2); Calc. Creatinine Clearance 170 mL/min (70-130); Calcium 7.3 mg/dL (7.8-10.44); Carbon Dioxide 27 mmol/L (23-31); Chloride 109 mmol/L (98-107); Globulin 2.3 g/dL (2.4-3.5); Glucose 120 mg/dL (80-115); Magnesium 1.8 mg/dL (1.6-2.6); Potassium 3.1 mmol/L (3.5-5.1); Sodium 141 mmol/L (136-145)
[2020-06-26 06:32] LABS: Phosphorus 1.7 mg/dL (2.3-4.7)
[2020-06-26] MEDS ORDERED: Potassium Phosphate 30 MMOL in Sodium Chloride 0.9% 250 ML 250 ML IVPB SCH (08:00)
[2020-06-26] MEDS: PHOS-NAK 1 PKT PACK PO SCH ×2 (08:12→12:49)
[2020-06-26] MEDS: Calcium Carbonate 600 MG + Vit D TAB PO SCH ×2 (08:13→18:35)
[2020-06-26] MEDS: Spironolactone 25 MG TAB PO SCH (08:13)
[2020-06-26] MEDS: Saccharomyces boulardii 250 MG CAP PO SCH (10:17)
[2020-06-26] MEDS: Magnesium Oxide 400 MG TAB PO SCH (10:17)
[2020-06-26] MEDS: Folic Acid 1 MG TAB PO SCH (10:18)
[2020-06-26] MEDS: Furosemide 20 MG TAB PO SCH (10:18)
[2020-06-26] MEDS: Cyanocobalamin (Vitamin B-12) 1,000 MCG TAB PO SCH (10:18)
[2020-06-26] MEDS: Carvedilol 3.125 MG TAB PO SCH ×2 (10:18→19:49)
--- NOTE | 2020-06-26 10:32 | PDOC.HOSPP ---
- Subjective Encounter Date: 06/26/20 Encounter Time: 07:30 Subjective: Patient seen and examined bedside today, patient is feeling weakness, he sometimes gets intermittent abdominal cramps, no fever - Objective Vital Signs & Weight: Vital Signs (12 hours) Temp Pulse Resp BP Pulse Ox 06/26/20 07:30 97.8 F 85 16 143/77 H 90 L 06/26/20 04:00 98.3 F 86 16 131/86 92 L 06/26/20 00:00 97.4 F L 85 16 145/89 H 95 06/25/20 22:42 12 Weight Admit Weight 262 lb 5.6 oz Weight 262 lb 5.601 oz I&O: 06/25/20 06/26/20 06/27/20 06:59 06:59 06:59 Intake Total 1400 2360 Output Total 975 1150 Balance 425 1210 Result Diagrams: 06/26/20 05:31 06/26/20 05:31 Hospitalist ROS - Review of Systems Constitutional: reports: weakness, malaise. denies: fever, chills, sweats, o ther ENT: denies: ear pain, ear discharge, nose pain, nose discharge, nose congestion, mouth pain, mouth swelling, throat pain, throat swelling, other Respiratory: denies: cough, dry, shortness of breath, hemoptysis, SOB with excertion, pleuritic pain, sputum, wheezing, other Cardiovascular: denies: chest pain, palpitations, orthopnea, paroxysmal noc. dyspnea, edema, light headedness, other Gastrointestinal: reports: diarrhea. denies: nausea, vomiting, abdominal pain, constipation, melena, hematochezia, other Genitourinary: denies: dysuria, frequency, incontinence, hematuria, retention, other Musculoskeletal: denies: neck pain, shoulder pain, arm pain, back pain, hand pain, leg pain, foot pain, other - Medication Medications: Active Medications Generic Name Dose Route Start Last Admin Trade Name Freq PRN Reason Stop Dose Admin Acetaminophen 650 mg 06/20/20 13:35 06/22/20 20:36 Acetaminophen 325 Mg Tab PO 650 mg Q4H PRN Administration Headache/Fever/Mild Pain (1-3) Hydrocodone Bitart/Acetaminophen 1 tab 06/21/20 08:00 06/25/20 14:41 Hydrocodone/Acetaminophen 5/325 Mg Tablet PO 1 tab Q4H PRN Administration Moderate Pain (4-6) Albuterol/Ipratropium 3 ml 06/21/20 13:00 06/26/20 07:26 Ipratropium/Albuterol Sulfate 3 Ml Neb NEB Not Given [id number] OTILIA Atorvastatin Calcium 10 mg 06/21/20 21:00 06/25/20 20:17 Atorvastatin Calcium 10 Mg Tab PO 10 mg HS OTILIA Administration Benzonatate 100 mg 06/21/20 08:00 06/22/20 00:22 Benzonatate 100 Mg Cap PO 100 mg Q6H PRN Administration Cough Bisacodyl 10 mg 06/21/20 08:00 06/21/20 08:25 Bisacodyl 5 Mg Tab PO 10 mg DAILYPRN PRN Administration Constipation Calcium Carbonate 1,000 mg 06/20/20 13:35 06/22/20 14:29 Calcium Carbonate 500 Mg Chewtab PO 1,000 mg Q4H PRN Administration Heartburn or Indigestion Calcium/Vitamin D 2 tab 06/22/20 08:00 06/26/20 08:13 Calcium Carbonate 600 Mg + Vit D Tab PO 2 tab BID-WM OTILIA Administration Carvedilol 3.125 mg 06/22/20 09:00 06/26/20 10:18 Carvedilol 3.125 Mg Tab PO 3.125 mg BID OTILIA Administration Cyanocobalamin 1,000 mcg 06/21/20 09:00 06/26/20 10:18 Cyanocobalamin (Vitamin B-12) 1,000 Mcg Tab PO 1,000 mcg DAILY OTILIA Administration Folic Acid 1 mg 06/21/20 09:00 06/26/20 10:18 Folic Acid 1 Mg Tab PO 1 mg DAILY OTILIA Administration Furosemide 20 mg 06/26/20 09:00 06/26/20 10:18 Furosemide 20 Mg Tab PO 20 mg DAILY OTILIA Administration Ciprofloxacin/Dextrose 400 mg/ 200 mls @ 200 mls/hr 06/24/20 09:00 06/26/20 10:18 Device IVPB 200 mls Q12HR OTILIA Administration Potassium Phosphate 30 mmol/ 260 mls @ 41.7 mls/hr 06/26/20 08:00 06/26/20 10:18 Sodium Chloride IVPB 06/26/20 14:00 260 mls NOW OTILIA Administration Loperamide HCl 2 mg 06/21/20 08:00 06/23/20 03:54 Loperamide Hcl 2 Mg Cap PO 2 mg PRN PRN Administration Diarrhea/Loose Stools Loratadine 10 mg 06/21/20 08:00 06/22/20 00:22 Loratadine 10 Mg Tab PO 10 mg DAILYPRN PRN Administration Sinus Symptoms Magnesium Oxide 400 mg 06/22/20 09:00 06/26/20 10:17 Magnesium Oxide 400 Mg Tab PO 400 mg DAILY OTILIA Administration Miscellaneous Medication 2 pkt 06/26/20 07:00 06/26/20 08:12 Phos-Nak 1 Pkt Pack PO 06/26/20 11:01 2 pkt Q4H OTILIA Administration Ondansetron HCl 4 mg 06/20/20 13:35 06/26/20 10:18 Ondansetron Odt 4 Mg Tab PO 4 mg Q6H PRN Administration Nausea/Vomiting Ondansetron HCl 4 mg 06/20/20 13:35 06/26/20 03:52 Ondansetron Pf 4 Mg/2 Ml Vial IVP 4 mg Q6H PRN Administration Nausea/Vomiting Pantoprazole Sodium 40 mg 06/21/20 09:00 06/26/20 10:18 Pantoprazole 40 Mg Tab PO 40 mg DAILY OTILIA Administration Saccharomyces Boulardii 250 mg 06/21/20 09:00 06/26/20 10:17 Saccharomyces Boulardii 250 Mg Cap PO 250 mg DAILY OTILIA Administration Sodium Chloride 10 ml 06/20/20 21:00 06/26/20 10:19 Flush - Normal Saline 10 Ml Syringe IVF 10 ml Q12HR OTILIA Administration Spironolactone 50 mg 06/26/20 08:00 06/26/20 08:13 Spironolactone 25 Mg Tab PO 50 mg QAM-WM OTILIA Administration Hospitalist Exam Vitals: Vital Signs (12 hours) Temp Pulse Resp BP Pulse Ox 06/26/20 07:30 97.8 F 85 16 143/77 H 90 L 06/26/20 04:00 98.3 F 86 16 131/86 92 L 06/26/20 00:00 97.4 F L 85 16 145/89 H 95 06/25/20 22:42 12 Weight Admit Weight 262 lb 5.6 oz Weight 262 lb 5.601 oz General Appearance: NAD, awake alert Eye: PERRL, anicteric sclera ENT: normocephalic atraumatic, no oropharyngeal lesions Neck: supple, symmetric, no JVD, no thyromegaly Heart: RRR, no murmur, no gallops, no rubs Respiratory: no wheezes, no rales, no ronchi Gastrointestinal: soft, normal bowel sounds Gastrointestinal - other findings: Distended Extremities: no clubbing, 1+ LE edema Skin: normal turgor, no lesions Neurological: no focal deficits Musculoskeletal: normal tone, normal strength Psychiatric: normal affect, normal behavior Hosp A/P (1) UTI (urinary tract infection) Status: Acute Qualifiers: Urinary tract infection type: site unspecified Hematuria presence: without hematuria Qualified Code(s): N39.0 - Urinary tract infection, site not specified (2) Sepsis due to gram-negative UTI Code(s): A41.50 - GRAM-NEGATIVE SEPSIS, UNSPECIFIED; N39.0 - URINARY TRACT INFECTION, SITE NOT SPECIFIED Status: Acute (3) Bacteremia due to Gram-negative bacteria Code(s): R78.81 - BACTEREMIA Status: Acute (4) Pneumonia Code(s): J18.9 - PNEUMONIA, UNSPECIFIED ORGANISM Status: Suspected Qualifiers: Aspiration pneumonia type: unspecified Lung location: unspecified part of lung (5) Liver cirrhosis Code(s): K74.60 - UNSPECIFIED CIRRHOSIS OF LIVER Status: Chronic Qualifiers: Hepatic cirrhosis type: alcoholic cirrhosis (6) HTN (hypertension) Code(s): I10 - ESSENTIAL (PRIMARY) HYPERTENSION Status: Chronic (7) Prostate cancer Code(s): C61 - MALIGNANT NEOPLASM OF PROSTATE Status: Chronic (8) Hypokalemia Code(s): E87.6 - HYPOKALEMIA Status: Acute (9) Type 2 myocardial infarction Code(s): I21.A1 - MYOCARDIAL INFARCTION TYPE 2 Status: Acute (10) Sepsis with acute organ dysfunction Code(s): A41.9 - SEPSIS, UNSPECIFIED ORGANISM; R65.20 - SEVERE SEPSIS WITHOUT SEPTIC SHOCK Status: Acute Qualifiers: Sepsis type: sepsis due to unspecified organism Severe sepsis acute organ dysfunction type: unspecified Severe sepsis shock status: without septic shock Qualified Code(s): A41.9 - Sepsis, unspecified organism; R65.20 - Severe sepsis without septic shock (11) Pancytopenia Code(s): D61.818 - OTHER PANCYTOPENIA Status: Chronic (12) Obesity (BMI 30-39.9) Code(s): E66.9 - OBESITY, UNSPECIFIED Status: Chronic (13) Hypophosphatemia Code(s): E83.39 - OTHER DISORDERS OF PHOSPHORUS METABOLISM Status: Acute (14) Hypokalemia Code(s): E87.6 - HYPOKALEMIA Status: Acute (15) Hypocalcemia Code(s): E83.51 - HYPOCALCEMIA Status: Acute (16) Lactic acidosis Code(s): E87.2 - ACIDOSIS Status: Acute (17) Partial small bowel obstruction Code(s): K56.600 - PARTIAL INTESTINAL OBSTRUCTION, UNSPECIFIED TO CAUSE Status: Acute - Plan old records reviewed/req, continue antibiotics, 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
[2020-06-26] MEDS ORDERED: K-Phos Neutral 250 MG TAB PO SCH (10:45)
[2020-06-26] MEDS ORDERED: Promethazine HCl 12.5 MG in Sodium Chloride 0.9% 50 ML IVPB PRN (12:18)
--- NOTE | 2020-06-26 17:34 | PRG ---
DATE OF SERVICE: 06/26/2020 Having intermittent cramps in the abdominal area, not very intense. He is able to eat and drink. He feels bloated a bit, passing gas intermittently. He is not dyspneic. He is afebrile. BP 140/80, heart rate 84, respirations 16, saturating 92 to 96. He is not in as much distress as when I last saw him, appears more comfortable at rest. Lungs with faint basilar crackles. Abdomen is distended, but not tender. Urostomy in place/ ileal conduit. Edema is about 3+ in the lower extremities. Neuro examination unchanged. Creatinine is 0.75, phosphorus 1.7, and albumin 2.7. The Enterobacter is susceptible to quinolones, so we can switch him to oral Cipro b.i.d. 500 mg. His IV in the right antecubital fossa is inflamed and needs to be removed. I think he probably can forego on establishment of another IV access at this point in time. Duration of therapy, another 10 days approximately with Cipro. Job ID: [id number] [facility]
[2020-06-26] MEDS: Atorvastatin Calcium 10 MG TAB PO SCH (19:48)
[2020-06-26] MEDS: Ciprofloxacin 500 MG TAB PO SCH (19:48)
[2020-06-27] MEDS: Ciprofloxacin 500 MG TAB PO SCH (05:52)
[2020-06-27 06:18] LABS: ALT (SGPT) Less than 7 U/L (8-55); AST (SGOT) 16 U/L (5-34); Albumin 2.7 g/dL (3.4-4.8); Alkaline Phosphatase 58 U/L (40-110); Anion Gap 12 mmol/L (10-20); BUN (Urea Nitrogen) 4 mg/dL (8.4-25.7); Bilirubin, Total 0.5 mg/dL (0.2-1.2); Calc. Creatinine Clearance 167 mL/min (70-130); Calcium 7.2 mg/dL (7.8-10.44); Carbon Dioxide 27 mmol/L (23-31); Chloride 108 mmol/L (98-107); Globulin 2.4 g/dL (2.4-3.5); Glucose 121 mg/dL (80-115); Magnesium 1.8 mg/dL (1.6-2.6); Phosphorus 2.5 mg/dL (2.3-4.7); Potassium 3.6 mmol/L (3.5-5.1); Protein, Total 5.1 g/dL (5.8-8.1); Sodium 143 mmol/L (136-145)
--- NOTE | 2020-06-27 07:25 | PDOC.GSPN ---
Surgery Progress Note: Subj - Subjective Patient reports: no new complaints, had a bowel movement, feels better, diarrhea , nausea, vomiting Narrative: Patient had N/V yesterday and did not eat anything due to the nausea. He endorses diarrhea since they did the SBFT and describes it as mostly watery with little color. Surgery Progress Note: Obj - Vital signs Vital signs: Vital Signs - Most Recent Temp Pulse Resp BP Pulse Ox 98.3 F 94 18 124/81 92 L 06/27/20 03:35 06/27/20 03:35 06/27/20 03:35 06/27/20 03:35 06/27/20 03:35 - Physical Exam General: no distress (Patient was not in pain but said that it was hard for him to move around in the bed due to being bloated), well developed, well nourished Neck: no bruits, no tex distention Cardiovascular: regular rate and rhythm Respiratory: clear to auscultation, normal expansion, breath sounds present Abdomen: positive bowel sounds (high-pitched, tinkling bowel sounds were not present), distended, other (fluid wave not present) Surgery Progress Note: Results - Labs Result Diagrams: 06/26/20 05:31 06/27/20 05:00 Lab results: Laboratory Results - last 12 hr 06/27/20 05:00 Sodium 143 Potassium 3.6 Chloride 108 H Carbon Dioxide 27 Anion Gap 12 BUN 4 L Creatinine 0.76 Estimated GFR (MDRD) Greater than 90 Glucose 121 H Calcium 7.2 L Phosphorus 2.5 Magnesium 1.8 Total Bilirubin 0.5 AST 16 ALT Less than 7 L Alkaline Phosphatase 58 Serum Total Protein 5.1 L Albumin 2.7 L Globulin 2.4 Albumin/Globulin Ratio 1.1 L Surgery Progress Note: A/P - Plan Plan: Patient is a 65 year old male with a history of prostate cancer, HCV, cirrhosis, and ileal conduit that presented to the hospital 6 days ago for symptoms related to SBO likely due to his ileal conduit procedure. - SBFT showed evidence of mid-distal partial obstruction with proximal small bowel dilation consistent with chronic SBO. - He is set to be discharged later this morning - He has been ambulatory with PT/OT - He has not been tolerating his liquids well, but is not showing signs of worsening obstruction. He had some nausea and vomiting yesterday, but has otherwise been feeling better. Addendum - Physician - Physician Attestation Date/Time: 06/27/20 1141 I personally performed or re-performed the physical examination and medical decision making. I have verified all student documentation or findings, including history, physical exam and/or medical decision making. Feels better today Home later today
[2020-06-27] MEDS: Spironolactone 25 MG TAB PO SCH (08:58)
[2020-06-27] MEDS: Magnesium Oxide 400 MG TAB PO SCH (08:58)
[2020-06-27] MEDS: Cyanocobalamin (Vitamin B-12) 1,000 MCG TAB PO SCH (08:58)
[2020-06-27] MEDS: Saccharomyces boulardii 250 MG CAP PO SCH (08:58)
[2020-06-27] MEDS: Calcium Carbonate 600 MG + Vit D TAB PO SCH (08:58)
[2020-06-27] MEDS: Folic Acid 1 MG TAB PO SCH (08:59)
[2020-06-27] MEDS: Furosemide 20 MG TAB PO SCH (08:59)
--- NOTE | 2020-06-27 09:42 | PDOC.DS.DS ---
Provider Date of Admission: 06/20/20 15:16 Date of Discharge: 06/27/20 Admitting Provider: Win Samuel Consultations: General Surgery, Infectious Disease Primary Care Physician: GENET MAK MD Course Hospital Course: Patient was admitted on June 20, 2020. On admission patient had chest x-ray which showed minimal blunting of costophrenic angles consistent with pleural thickening or pleural effusion, patient also had a CT angiography which showed no evidence of pulmonary em bolism,, there was bilateral pleural effusion and cirrhosis of liver, some nodule in left lower lobe Patient also had abdominal distention so he had abdominal and pelvis CT scan which showed mild dilation of proximal and mid small bowel loops dilatation suspicious for low-grade small bowel obstruction, patient has mild right hydronephrosis which has unchanged appearance, patient also had ultrasound abdomen which showed trace amount of ascites Patient was admitted in hospital and the next day we consulted infectious disease team, his blood culture was positive for gram-negative rao and ultima tely that came back as Enterobacter, he also has a urostomy from previous prostate cancer, his urine culture was growing multiorganism, initially we suspected SBP and that is why we did ultrasound abdomen but it was only trace amount of fluid so we did not pursue any paracentesis, Initially patient was given cefepime and vancomycin and subsequently based on culture result be changed to ciprofloxacin. On discharge be prescribed oral Cipro for another 10 days. As patient had CT abdomen and pelvis which was suggestive of some partial small bowel obstruction we consulted general surgery and small bowel x-ray was done which was also consistent with a small bowel obstruction which appeared to be chronic We discussed with the general surgeon and we have put patient on full liquid diet and dietary instruction given about low residue diet with slow advancement. Because of his cirrhosis and other comorbidity patient is not a good candidate for any surgical intervention, patient also does not want to go for any surgical intervention, Patient also does not want to go to residential home, with help of ed case manager we are arranging home health, All new medication we sent to his pharmacy. Patient is medically stable for discharge but he is at high risk for recurrent admission Resuscitation Status: 06/20/20 13:35 Resuscitation Status Routine Resuscitation Status: FULL: Full Resuscitation Lab Results: 06/26/20 05:31 06/27/20 05:00 Abnormal Lab Results - Last 48 hrs 06/26/20 05:31: Potassium 3.1 L, Chloride 109 H, Anion Gap 8 L, BUN 7 L, Calcium 7.3 L, Phosphorus 1.7 L, ALT Less than 7 L, Serum Total Protein 5.0 L, Albumin 2.7 L, Globulin 2.3 L 06/26/20 05:31: WBC 3.3 L, RBC 3.45 L, Hgb 9.3 L, Hct 29.0 L, MCH 26.9 L, RDW 17.0 H, Plt Count 92 L, MPV 10.6 H, Lymphocytes % 18.8 L, Monocytes % 10.9 H, Ba sophils % 1.2 H, Lymphocytes # 0.6 L 06/27/20 05:00: Chloride 108 H, BUN 4 L, Calcium 7.2 L, ALT Less than 7 L, Serum Total Protein 5.1 L, Albumin 2.7 L, Albumin/Globulin Ratio 1.1 L Microbiology - Entire Visit 06/26/20 08:47 Venous blood - Left Hand Blood Culture - Preliminary Specimen has been received and culture in progress. No Growth to date. 06/26/20 08:40 Venous blood - Left Arm Blood Culture - Preliminary Specimen has been received and culture in progress. No Growth to date. 06/20/20 10:15 Venous blood - Right Arm Blood Culture - Final Enterobacter cloacae complex 06/20/20 10:02 Venous blood - Left Arm Blood Culture - Final Enterobacter cloacae complex 06/20/20 10:05 Urine Suprapubic catheter Urine Culture - Final Presumptive Escherichia coli Gram Negative Rao Presumptive Enterococcus sp. Vitals: Vital Signs (12 hours) Temp Pulse Resp BP Pulse Ox 06/27/20 08:39 90 14 06/27/20 07:59 98.7 F 89 20 120/78 88 L 06/27/20 03:35 98.3 F 94 18 124/81 92 L 06/27/20 00:29 89 18 96 06/26/20 23:49 98.3 F 81 16 152/94 H 92 L Weight Admit Weight 262 lb 5.6 oz Weight 262 lb 5.601 oz Physical Exam: The patient was seen and examined on the day of discharge. General Appearance: NAD, awake alert Eye: PERRL, anicteric sclera ENT: normocephalic atraumatic, no oropharyngeal lesions Neck: supple, symmetric, no JVD Respiratory: no wheezes, no rales, no ronchi Cardiovascular: RRR, no murmur, no gallops, no rubs Gastrointestinal: soft, non-tender, normal bowel sounds Gastrointestinal - other findings: Mild distention noted, bowel sound present Extremities: no clubbing, 1+ LE edema Skin: normal turgor, no lesions Neurological: no focal deficits Musculoskeletal: normal tone, normal strength, no muscle wasting PSYCH: normal affect, normal behavior, A&O x 3 Problem (1) UTI (urinary tract infection) Status: Acute Qualifiers: Urinary tract infection type: site unspecified Hematuria presence: without hematuria Qualified Code(s): N39.0 - Urinary tract infection, site not specified (2) Sepsis due to gram-negative UTI Code(s): A41.50 - GRAM-NEGATIVE SEPSIS, UNSPECIFIED; N39.0 - URINARY TRACT INFECTION, SITE NOT SPECIFIED Status: Acute (3) Bacteremia due to Gram-negative bacteria Code(s): R78.81 - BACTEREMIA Status: Acute (4) Pneumonia Code(s): J18.9 - PNEUMONIA, UNSPECIFIED ORGANISM Status: Suspected Qualifiers: Aspiration pneumonia type: unspecified Lung location: unspecified part of lung (5) Liver cirrhosis Code(s): K74.60 - UNSPECIFIED CIRRHOSIS OF LIVER Status: Chronic Qualifiers: Hepatic cirrhosis type: alcoholic cirrhosis (6) HTN (hypertension) Code(s): I10 - ESSENTIAL (PRIMARY) HYPERTENSION Status: Chronic (7) Prostate cancer Code(s): C61 - MALIGNANT NEOPLASM OF PROSTATE Status: Chronic (8) Hypokalemia Code(s): E87.6 - HYPOKALEMIA Status: Acute (9) Type 2 myocardial infarction Code(s): I21.A1 - MYOCARDIAL INFARCTION TYPE 2 Status: Acute (10) Sepsis with acute organ dysfunction Code(s): A41.9 - SEPSIS, UNSPECIFIED ORGANISM; R65.20 - SEVERE SEPSIS WITHOUT SEPTIC SHOCK Status: Acute Qualifiers: Sepsis type: sepsis due to unspecified organism Severe sepsis acute organ dysfunction type: unspecified Severe sepsis shock status: without septic shock Qualified Code(s): A41.9 - Sepsis, unspecified organism; R65.20 - Severe sepsis without septic shock (11) Pancytopenia Code(s): D61.818 - OTHER PANCYTOPENIA Status: Chronic (12) Obesity (BMI 30-39.9) Code(s): E66.9 - OBESITY, UNSPECIFIED Status: Chronic (13) Hypophosphatemia Code(s): E83.39 - OTHER DISORDERS OF PHOSPHORUS METABOLISM Status: Acute (14) Hypokalemia Code(s): E87.6 - HYPOKALEMIA Status: Acute (15) Hypocalcemia Code(s): E83.51 - HYPOCALCEMIA Status: Acute (16) Lactic acidosis Code(s): E87.2 - ACIDOSIS Status: Acute (17) Partial small bowel obstruction Code(s): K56.600 - PARTIAL INTESTINAL OBSTRUCTION, UNSPECIFIED TO CAUSE Status: Acute Plan Prescriptions: Ciprofloxacin [Cipro] 500 mg PO Q12HR #20 tab Spironolactone [Aldactone] 50 mg PO DAILY #60 tab Calcium Carbonate + Vit D [Caltrate 600 + Vit D] 1 tab PO BID-WM #60 tab Carvedilol [Coreg] 3.125 mg PO BID #60 tab Saccharomyces boulardii [Florastor] 250 mg PO DAILY #30 cap Folic Acid [Folvite] 1 mg PO DAILY #30 tab Furosemide [Lasix] 20 mg PO DAILY #30 tab Magnesium Oxide 400 mg PO DAILY #30 tab KPhos Neutral [Phospha 250 Neutral] 250 mg PO DAILY #14 tab Cyanocobalamin (Vitamin B-12) [Vitamin B-12] 1,000 mcg PO DAILY #30 tab Home Medications: Medication Instructions Recorded Confirmed Type Atorvastatin Calcium [Lipitor] 10 mg PO HS 01/20/20 06/20/20 History Loperamide HCl [Anti-Diarrheal] 2 mg PO PRN PRN 01/20/20 06/20/20 History Melatonin 10 mg PO HS PRN 01/20/20 06/20/20 History Pantoprazole [Protonix] 1 tab PO DAILY 01/20/20 06/20/20 History Cyclobenzaprine [Flexeril] 10 mg PO TID PRN 04/24/20 06/20/20 History traMADol HCl [Tramadol HCl] 50 mg PO TID PRN #20 tablet 06/09/20 06/20/20 Rx Calcium Carbonate + Vit D 1 tab PO BID-WM #60 tab 06/26/20 Rx [Caltrate 600 + Vit D] Carvedilol [Coreg] 3.125 mg PO BID #60 tab 06/26/20 Rx Ciprofloxacin [Cipro] 500 mg PO Q12HR #20 tab 06/26/20 Rx Cyanocobalamin (Vitamin B-12) 1,000 mcg PO DAILY #30 tab 06/26/20 Rx [Vitamin B-12] Folic Acid [Folvite] 1 mg PO DAILY #30 tab 06/26/20 Rx Furosemide [Lasix] 20 mg PO DAILY #30 tab 06/26/20 Rx KPhos Neutral [Phospha 250 Neutral] 250 mg PO DAILY #14 tab 06/26/20 Rx Magnesium Oxide 400 mg PO DAILY #30 tab 06/26/20 Rx Saccharomyces boulardii [Florastor] 250 mg PO DAILY #30 cap 06/26/20 Rx Spironolactone [Aldactone] 50 mg PO DAILY #60 tab 06/26/20 Rx Allergies: No Known Drug Allergies Allergy (Verified 04/24/20 01:51) Activity:: Activity as Tolerated Nourishment:: Low Sodium Diet Therapies:: Home Health Equipment/Supplies:: Not Applicable IV Therapy:: Not Applicable Referrals: [facility] [Outside] GENET MAK MD [Primary Care Provider] - Disposition: HOME HEALTH Quality CORE MEASURES:: N/A
[2020-06-27] MEDS: Carvedilol 3.125 MG TAB PO SCH (10:11)
[2020-06-27 11:49] VITALS: BP 123/83; TEMP 98
== END 2020-06-27 13:30 | disposition home health service (06) | DRG 698 ==
LOC: ERS 09:47 → 2NO 15:16 → SURG B 06-21 14:48
PROVIDERS: ADMIT Internal Medicine; ATTEND Internal Medicine
DX: N99.521 Infection of incontinent external stoma of urinary tract (principal); A41.59 Other Gram-negative sepsis; J69.0 Pneumonitis due to inhalation of food and vomit; I21.A1 Myocardial infarction type 2; R65.20 Severe sepsis without septic shock; S22.080A Wedge compression fracture of T11-T12 vertebra, initial encounter for closed fracture; D61.818 Other pancytopenia; N39.0 Urinary tract infection, site not specified; E87.2 Acidosis; K56.690 Other partial intestinal obstruction; J90 Pleural effusion, not elsewhere classified; Z20.822 Contact with and (suspected) exposure to COVID-19; K70.30 Alcoholic cirrhosis of liver without ascites; I10 Essential (primary) hypertension; C61 Malignant neoplasm of prostate; E87.6 Hypokalemia; E66.9 Obesity, unspecified; E83.39 Other disorders of phosphorus metabolism; E83.51 Hypocalcemia; Y84.6 Urinary catheterization as the cause of abnormal reaction of the patient, or of later complication, without mention of misadventure at the time of the procedure; Z79.52 Long term (current) use of systemic steroids; Z79.51 Long term (current) use of inhaled steroids; Z79.899 Other long term (current) drug therapy; Z68.36 Body mass index [BMI] 36.0-36.9, adult; M51.24 Other intervertebral disc displacement, thoracic region
CPT/HCPCS: 0002A; 36415; 71045; 71275; 72146; 74177; 74250; 76705; 80053; 81003; 81015; 82310; 82553; 83605; 83735; 84100; 84132; 84145; 84484; 85007; 85025; 85027; 85610; 87040; 87077; 87086; 87149; 87186; 87635; 91300; 93005; 94640; 96365; 96366; 96367; 96375; 99214; G0463; J0692; J0744; J2405; J2543; J2550; J3370; J3490; J7030; J7050; J7620; Q0162; Q9963; Q9967; U0003; U0005

== ENCOUNTER 2020-07-15 12:08 | Emergency (ER) | payer MEDICARE ==
[~2020-07-15 12:08] MED LIST changes: +Iopamidol-370 76% 500 ML 1 ML ONE; -PEGFILGRASTIM-JMDB 6 MG/0.6 ML SYRINGE SQ SCH
[2020-07-15 12:47] LABS: Hemoglobin 9.8 g/dL (14.0-18.0); Mean Corpuscular HGB CONC 31.1 g/dL (32.0-36.0); Mean Corpuscular Hemoglobin 25.3 pg (27.0-31.0); Mean Corpuscular Volume 81.2 fL (78.0-98.0); Mean Platelet Volume 9.7 fL (7.4-10.4); Platelet Count 119 thou/uL (130-400); RBC Distribution Width 17.6 % (11.5-14.5); Red Blood Cell (RBC) Count 3.87 mill/uL (4.70-6.10); White Blood Cell (WBC) Count 1.4 thou/uL (4.8-10.8)
[2020-07-15 13:04] LABS: Anisocytosis SLIGHT = 6-15 cells (100X) (0-5/hpf); Band 5 % (5-11); Eosinophils 1 % (0-10); Hypochromia SLIGHT = 6-15 cells (100X) (0-5/hpf); Lymphocytes 32 % (21-51); MDiff Complete? YES; Monocytes 14 % (0-10); Myelocyte 1 % (0-0); Neutrophil 45 % (42-75); Ovalocytes SLIGHT = 2-5 cells (100X) (0-1/hpf); Platelet Morphology Comment Appears Decreased; Polychromasia SLIGHT = 2-3 cells (100X) (0-2/hpf); Reactive Lymphocytes 2 % (0-10); Target Cells SLIGHT = 2-5 cells (100X) (0-1/hpf)
--- NOTE | 2020-07-15 13:04 | RAD ---
XR Chest 1 View Portable History: Shortness of breath Comparison: Radiograph June 14 6020 Findings: Moderate layering pleural effusions. No pneumothorax. Cardiac silhouette and mediastinal co ntours are similar. No acute osseous abnormality. Impression: Redistribution of moderate layering pleural effusions. No high-grade pulmonary edema.
[2020-07-15 13:07] LABS: ALT (SGPT) Less than 7 U/L (8-55); AST (SGOT) 16 U/L (5-34); Albumin 3.3 g/dL (3.4-4.8); Alkaline Phosphatase 57 U/L (40-110); Anion Gap 11 mmol/L (10-20); BUN (Urea Nitrogen) 6 mg/dL (8.4-25.7); Bilirubin, Total 0.5 mg/dL (0.2-1.2); CK (CPK) 44 U/L (30-200); Calc. Creatinine Clearance 0 mL/min (70-130); Calcium 7.6 mg/dL (7.8-10.44); Carbon Dioxide 28 mmol/L (23-31); Chloride 105 mmol/L (98-107); Globulin 2.7 g/dL (2.4-3.5); Glucose 167 mg/dL (80-115); Potassium 3.5 mmol/L (3.5-5.1); Sodium 140 mmol/L (136-145)
--- NOTE | 2020-07-15 14:21 | CT ---
CT ANGIO OF CHEST PERFORMED WITH INTRAVENOUS CONTRAST ENHANCEMENT WITH 3D RECONSTRUCTIONS: 07/15/20 HISTORY: Cough, shortness of breath, recently tested positive for COVID. The lungs are clear of any infiltrative process. There is mild bilateral pleural effusions. Minimal a telectatic changes in the lung bases. Thoracic aorta is normal in caliber. There is good pulmonary ar clem opacification, There is no CT evidence for pulmonary embolus. Some ascites is noted. Liver margin has a nodular contour suggesting cirrhotic change. Hypodensity in the right lobe is again noted. IMPRESSION: 1. No CT evidence for pulmonary embolus. 2. Bilateral pleural effusions. 3. Nodular cirrhotic contour to the liver incompletely characterized hypodensity within the righ t lobe. Ascites is noted. POS: WILIAN
[2020-07-15 17:34] LABS: SARS-CoV-2 PCR by NAA DETECTED (NotDetected)
== END 2020-07-15 16:50 | disposition home or self-care (01) ==
LOC: ERS 12:08
DX: U07.1 COVID-19 (principal); D72.819 Decreased white blood cell count, unspecified; C61 Malignant neoplasm of prostate; I10 Essential (primary) hypertension
CPT/HCPCS: 71045; 71275; 80053; 82550; 83880; 84484; 85025; 85379; 93005; 99284; U0003; U0005; 87635; Q9967

== ENCOUNTER 2020-07-18 20:30 | Emergency (ER) | payer MEDICARE ==
--- NOTE | 2020-07-18 21:13 | RAD ---
SINGLE VIEW OF THE CHEST: 07/18/20 COMPARISON: 07/15/20 HISTORY: COVID positive with difficulty breathing/dyspnea. FINDINGS: Single view of the chest shows normal sized cardiomediastinal silhouette with atherosclerotic calcifi cations in the aorta. There is no evidence of consolidation or mass. There may be a small left pleura l effusion. There appears to be a remote healed left clavicle fracture. Degenerative changes are see n in the spine. IMPRESSION: Possible small left pleural effusion. POS: EAA
[2020-07-18 21:29] LABS: #Lymphocytes 0.6 thou/uL (1.20-3.40); #Monocytes 0.2 thou/uL (0.11-0.59); #Neutrophils 0.9 thou/uL (1.40-6.50); %Eosinophils 0.3 % (0.0-10.0); %Lymphocytes 35.3 % (21.0-51.0); %Monocytes 9.6 % (0.0-10.0); %Neutrophils 54.8 % (42.0-75.0); Hemoglobin 9.8 g/dL (14.0-18.0); Mean Corpuscular HGB CONC 31.4 g/dL (32.0-36.0); Mean Corpuscular Hemoglobin 24.9 pg (27.0-31.0); Mean Corpuscular Volume 79.3 fL (78.0-98.0); Mean Platelet Volume 10.1 fL (7.4-10.4); Platelet Count 126 thou/uL (130-400); RBC Distribution Width 17.2 % (11.5-14.5); Red Blood Cell (RBC) Count 3.92 mill/uL (4.70-6.10); White Blood Cell (WBC) Count 1.6 thou/uL (4.8-10.8)
[2020-07-18 21:46] LABS: ALT (SGPT) Less than 7 U/L (8-55); AST (SGOT) 26 U/L (5-34); Albumin 3.4 g/dL (3.4-4.8); Alkaline Phosphatase 76 U/L (40-110); Anion Gap 12 mmol/L (10-20); BUN (Urea Nitrogen) 11 mg/dL (8.4-25.7); Bilirubin, Total 0.3 mg/dL (0.2-1.2); Calc. Creatinine Clearance 0 mL/min (70-130); Calcium 7.9 mg/dL (7.8-10.44); Carbon Dioxide 26 mmol/L (23-31); Chloride 106 mmol/L (98-107); Globulin 2.8 g/dL (2.4-3.5); Glucose 117 mg/dL (80-115); Potassium 3.4 mmol/L (3.5-5.1); Protein, Total 6.2 g/dL (5.8-8.1); Sodium 141 mmol/L (136-145)
--- NOTE | 2020-07-18 22:31 | CT ---
CTA Angio Chest W WO Con 07/18/2020 10:15 PM Indication: History of prostate cancer, Covid and dyspnea Technique: Multiple CTA images were obtained of the thorax with IV contrast. 3-D rendering: MIP jannet nstructed images were created and reviewed. Comparison: CT PE examination dated July 15, 2020 Findings: Pulmonary arteries: No central or segmental pulmonary embolus is evident. Heart and Aorta: There are coronary artery and thoracic aortic calcifications. The great vessel orig ins appear within normal limits. Heart size is normal. Mediastinum:Normal appearing. No enlarged lymph nodes. Lungs:There is scattered emphysema Pleural space: There are small bilateral pleural effusions. There is left basilar atelectasis Upper Abdomen: There is cirrhotic morphology of the liver. There is scattered ascites. There is wall thickening involving the visualized aspects of the transverse colon. Osseous Structures: There is vertebroplasty change of L2. There is stable mild compression abnormali ty of L1. There is diffuse osteopenia. Mild superior endplate compression abnormality of T4 is stable. Soft tissues:No abnormality. Other findings:None. Impression: 1. No central or segmental pulmonary embolus. 2. Wall thickening involving the proximal portions of the transverse colon is suspicious for mild co litis. Recommend correlation. Some of this could be related to underdistention and scattered mild ascites within the upper abdomen inducing artifact. 3. Cirrhosis with scattered ascites. 4. Persistent small bilateral pleural effusions with left basilar atelectasis.
== END 2020-07-18 23:10 | disposition home or self-care (01) ==
LOC: ERS 20:30
DX: U07.1 COVID-19 (principal); I10 Essential (primary) hypertension; Z79.899 Other long term (current) drug therapy
CPT/HCPCS: 71045; 71275; 80053; 83605; 83880; 84484; 85025; 85652; 86140; 87040; 93005; Q9967

== ENCOUNTER 2020-11-13 10:34 | Inpatient (IN) | payer MEDICARE ==
[2020-11-13 11:22] LABS: INR-International Normal Ratio 1.1; Prothrombin Time 13.9 sec (12.0-14.7)
[2020-11-13 11:23] LABS: PTT 25.9 sec (22.9-36.1)
[2020-11-13 11:30] LABS: ALT (SGPT) 18 U/L (8-55); AST (SGOT) 23 U/L (5-34); Albumin 3.9 g/dL (3.4-4.8); Alkaline Phosphatase 83 U/L (40-110); Anion Gap 15 mmol/L (10-20); BUN (Urea Nitrogen) 13 mg/dL (8.4-25.7); Bilirubin, Total 0.8 mg/dL (0.2-1.2); Calc. Creatinine Clearance 0 mL/min (70-130); Calcium 8.9 mg/dL (7.8-10.44); Carbon Dioxide 22 mmol/L (23-31); Chloride 105 mmol/L (98-107); Globulin 2.9 g/dL (2.4-3.5); Glucose 139 mg/dL (80-115); Protein, Total 6.8 g/dL (5.8-8.1); Sodium 138 mmol/L (136-145)
[2020-11-13 11:37] LABS: #Eosinphils 0.1 thou/uL (0.0-0.7); #Lymphocytes 0.3 thou/uL (1.20-3.40); #Monocytes 0.3 thou/uL (0.11-0.59); #Neutrophils 2.5 thou/uL (1.40-6.50); %Basophils 0.5 % (0.0-1.0); %Eosinophils 2.2 % (0.0-10.0); %Lymphocytes 10.2 % (21.0-51.0); %Monocytes 8.2 % (0.0-10.0); %Neutrophils 78.9 % (42.0-75.0); Hemoglobin 14.3 g/dL (14.0-18.0); Mean Corpuscular HGB CONC 33.4 g/dL (32.0-36.0); Mean Corpuscular Hemoglobin 30.7 pg (27.0-31.0); Mean Corpuscular Volume 92.1 fL (78.0-98.0); Mean Platelet Volume 8.8 fL (7.4-10.4); Platelet Count 69 thou/uL (130-400); Red Blood Cell (RBC) Count 4.65 mill/uL (4.70-6.10); White Blood Cell (WBC) Count 3.1 thou/uL (4.8-10.8)
[2020-11-13] MEDS ORDERED: Cefepime 1 GM VIAL ONE (11:51)
[2020-11-13 12:17] LABS: Bilirubin Negative (Negative); Blood, Urine Trace (Negative); Clarity Clear (Clear); Glucose, Urine (Dipstick) Normal (Negative); Ketone, Urine Negative (Negative); Leukocyte 25 Leu/uL (Negative); Nitrite Negative (Negative); Protein, Urine (Dipstick) Negative (Neg-Trace); RBC/HPF 0-3 HPF (0-3); Specific Gravity, Urine 1.011 (1.002-1.036); Squamous Epithelial 0-3 HPF (0-3); Urobilinogen Normal mg/dL (Less than 2); pH, Urine 6.5 (5.0-9.0)
[2020-11-13 12:20] LABS: Bacteria/HPF 1+ HPF (None Seen)
[2020-11-13] MEDS ORDERED: Vancomycin 1 GM/200 ML BAG ONE (12:20)
[2020-11-13] MEDS ORDERED: Lidocaine 1% w/Epinephrine 1:100K 20 ML VIAL ONE (14:02)
[2020-11-13] MEDS ORDERED: Acetaminophen 650 MG Suppository PR PRN (14:06)
[2020-11-13] MEDS ORDERED: Bisacodyl 10 MG SUPP PR PRN (14:06)
[2020-11-13] MEDS ORDERED: Calcium Carbonate 500 MG ChewTAB PO PRN (14:06)
[2020-11-13] MEDS ORDERED: Senokot S 8.6-50 MG TAB PO PRN (14:06)
[2020-11-13] MEDS ORDERED: Ondansetron ODT 4 MG TAB PO PRN (14:06)
[2020-11-13] MEDS ORDERED: Bisacodyl 5 MG TAB PO PRN (14:06)
[2020-11-13] MEDS ORDERED: Ondansetron PF 4 MG/2 ML Vial IVP PRN (14:06)
[2020-11-13] MEDS ORDERED: Labetalol HCl 100 MG/20 ML VIAL SLOW IVP PRN (15:42)
[2020-11-13] MEDS ORDERED: hydrALAZINE 20 MG/ML VIAL SLOW IVP PRN (15:42)
[2020-11-13 18:06] LABS: Syphilis Antibody Nonreactive (Nonreactive); Syphilis Antibody Index 0.03 S/CO (<1.00 Non-Reactive)
[2020-11-13 18:10] LABS: HIV (1/2) Antibody/Antigen Non-Reactive (NonReactive); HIV 1/2 INDEX 0.13 S/CO (<1.00)
[2020-11-13] MEDS: Acetaminophen 325 MG TAB PO PRN (18:44)
[2020-11-13 19:29] VITALS: BMI 31.5
[2020-11-13] MEDS ORDERED: Metoclopramide HCl 10 MG/2 ML VIAL IVP SCH (21:30)
[2020-11-13] MEDS ORDERED: diphenhydrAMINE 12.5 MG in Sodium Chloride 0.9% 50 ML IVPB SCH (21:30)
[2020-11-13] MEDS ORDERED: diphenhydrAMINE 50 MG/ML VIAL IVP SCH (22:00)
[2020-11-13] MEDS ORDERED: Lisinopril 10 MG TAB PO SCH (22:00)
[2020-11-14] MEDS: Vancomycin 1.5 GRAM/300 ML BAG 1.5 GM in Premix Bag 1 BAG IVPB SCH ×2 (02:17→13:21)
[2020-11-14] MEDS: Multivitamin W/ Minerals 1 TAB PO SCH (08:41)
[2020-11-14] MEDS: Carvedilol 6.25 MG TAB PO SCH ×2 (08:41→20:32)
[2020-11-14] MEDS ORDERED: Enoxaparin Sodium 40 MG/0.4 ML SYRINGE SC SCH (09:00)
[2020-11-14 09:40] LABS: ALT (SGPT) 15 U/L (8-55); AST (SGOT) 21 U/L (5-34); Albumin 3.3 g/dL (3.4-4.8); Alkaline Phosphatase 53 U/L (40-110); Anion Gap 13 mmol/L (10-20); BUN (Urea Nitrogen) 12 mg/dL (8.4-25.7); Bilirubin, Total 0.8 mg/dL (0.2-1.2); Calc. Creatinine Clearance 113 mL/min (70-130); Calcium 8.2 mg/dL (7.8-10.44); Carbon Dioxide 20 mmol/L (23-31); Chloride 106 mmol/L (98-107); Globulin 2.7 g/dL (2.4-3.5); Glucose 176 mg/dL (80-115); Potassium 3.5 mmol/L (3.5-5.1); Sodium 135 mmol/L (136-145)
[2020-11-14 11:46] LABS: SARS-CoV-2 PCR by NAA Not Detected (NotDetected)
[2020-11-14] MEDS ORDERED: Lidocaine 1% w/Epinephrine 1:100K 20 ML VIAL ONE (14:43)
[2020-11-14] MEDS ORDERED: Lidocaine 1% w/Epinephrine 1:100K 20 ML VIAL IJ SCH (15:00)
[2020-11-14] MEDS: Atorvastatin Calcium 10 MG TAB PO SCH (20:33)
[2020-11-14] MEDS: Lisinopril 10 MG TAB PO SCH (20:33)
[2020-11-15 01:02] LABS: Vancomycin, Trough 15.7 ug/mL
[2020-11-15] MEDS: Vancomycin 1.5 GRAM/300 ML BAG 1.5 GM in Premix Bag 1 BAG IVPB SCH ×2 (01:48→13:14)
[2020-11-15 06:42] LABS: #Eosinphils 0.1 thou/uL (0.0-0.7); #Lymphocytes 0.9 thou/uL (1.20-3.40); #Monocytes 0.4 thou/uL (0.11-0.59); #Neutrophils 1.7 thou/uL (1.40-6.50); %Basophils 0.3 % (0.0-1.0); %Lymphocytes 29.9 % (21.0-51.0); %Monocytes 12.2 % (0.0-10.0); %Neutrophils 54.6 % (42.0-75.0); Mean Corpuscular HGB CONC 33.3 g/dL (32.0-36.0); Mean Corpuscular Hemoglobin 30.8 pg (27.0-31.0); Mean Corpuscular Volume 92.5 fL (78.0-98.0); Mean Platelet Volume 8.5 fL (7.4-10.4); Platelet Count 66 thou/uL (130-400); RBC Distribution Width 14.7 % (11.5-14.5); Red Blood Cell (RBC) Count 4.22 mill/uL (4.70-6.10); White Blood Cell (WBC) Count 3.1 thou/uL (4.8-10.8)
[2020-11-15 06:49] LABS: ALT (SGPT) 11 U/L (8-55); AST (SGOT) 17 U/L (5-34); Albumin 3.4 g/dL (3.4-4.8); Alkaline Phosphatase 53 U/L (40-110); Anion Gap 11 mmol/L (10-20); BUN (Urea Nitrogen) 15 mg/dL (8.4-25.7); Bilirubin, Total 0.7 mg/dL (0.2-1.2); Calc. Creatinine Clearance 131 mL/min (70-130); Calcium 8.3 mg/dL (7.8-10.44); Carbon Dioxide 26 mmol/L (23-31); Chloride 106 mmol/L (98-107); Globulin 2.7 g/dL (2.4-3.5); Glucose 101 mg/dL (80-115); Potassium 3.5 mmol/L (3.5-5.1); Protein, Total 6.1 g/dL (5.8-8.1); Sodium 139 mmol/L (136-145)
[2020-11-15] MEDS: Carvedilol 6.25 MG TAB PO SCH ×2 (09:04→20:50)
[2020-11-15] MEDS: Multivitamin W/ Minerals 1 TAB PO SCH (09:04)
[2020-11-15] MEDS: Acetaminophen 325 MG TAB PO PRN (09:19)
[2020-11-15] MEDS: Atorvastatin Calcium 10 MG TAB PO SCH (20:50)
[2020-11-15] MEDS: Lisinopril 10 MG TAB PO SCH (20:50)
[2020-11-16] MEDS: Vancomycin 1.5 GRAM/300 ML BAG 1.5 GM in Premix Bag 1 BAG IVPB SCH ×2 (00:53→12:41)
[2020-11-16 07:18] LABS: #Eosinphils 0.1 thou/uL (0.0-0.7); #Lymphocytes 1.1 thou/uL (1.20-3.40); #Monocytes 0.4 thou/uL (0.11-0.59); #Neutrophils 2.2 thou/uL (1.40-6.50); %Basophils 0.4 % (0.0-1.0); %Eosinophils 3.3 % (0.0-10.0); %Monocytes 10.7 % (0.0-10.0); %Neutrophils 57.6 % (42.0-75.0); Hemoglobin 14.3 g/dL (14.0-18.0); Mean Corpuscular HGB CONC 33.3 g/dL (32.0-36.0); Mean Corpuscular Hemoglobin 30.4 pg (27.0-31.0); Mean Corpuscular Volume 91.4 fL (78.0-98.0); Mean Platelet Volume 8.6 fL (7.4-10.4); Platelet Count 89 thou/uL (130-400); RBC Distribution Width 14.7 % (11.5-14.5); Red Blood Cell (RBC) Count 4.69 mill/uL (4.70-6.10); White Blood Cell (WBC) Count 3.8 thou/uL (4.8-10.8)
[2020-11-16 07:43] LABS: ALT (SGPT) 14 U/L (8-55); AST (SGOT) 20 U/L (5-34); Albumin 3.9 g/dL (3.4-4.8); Alkaline Phosphatase 68 U/L (40-110); Anion Gap 14 mmol/L (10-20); BUN (Urea Nitrogen) 14 mg/dL (8.4-25.7); Bilirubin, Total 0.7 mg/dL (0.2-1.2); Calc. Creatinine Clearance 134 mL/min (70-130); Calcium 8.7 mg/dL (7.8-10.44); Carbon Dioxide 26 mmol/L (23-31); Chloride 105 mmol/L (98-107); Globulin 3.2 g/dL (2.4-3.5); Glucose 125 mg/dL (80-115); Potassium 3.6 mmol/L (3.5-5.1); Protein, Total 7.1 g/dL (5.8-8.1); Sodium 141 mmol/L (136-145)
[2020-11-16] MEDS: Carvedilol 6.25 MG TAB PO SCH (07:58)
[2020-11-16] MEDS: Multivitamin W/ Minerals 1 TAB PO SCH (07:58)
[2020-11-16 12:05] VITALS: BP 149/86; TEMP 97.6
[2020-11-16 12:42] LABS: Vancomycin, Trough 19.4 ug/mL
== END 2020-11-16 15:38 | disposition home health service (06) | DRG 872 ==
LOC: ERS 10:34 → ERHOLD 13:17 → T4-A 17:51
PROVIDERS: ADMIT Family Medicine; ATTEND Family Medicine
PROC: 0W9K0ZZ Drainage of Upper Back, Open Approach (ICD-10-PCS; principal; 2020-11-13)
PROC: 0W9K0ZZ Drainage of Upper Back, Open Approach (ICD-10-PCS; 2020-11-14)
DX: A41.9 Sepsis, unspecified organism (principal); L02.212 Cutaneous abscess of back [any part, except buttock and flank]; L03.312 Cellulitis of back [any part except buttock and flank]; C79.9 Secondary malignant neoplasm of unspecified site; Z20.822 Contact with and (suspected) exposure to COVID-19; R82.71 Bacteriuria; K74.60 Unspecified cirrhosis of liver; C61 Malignant neoplasm of prostate; M85.80 Other specified disorders of bone density and structure, unspecified site; D69.59 Other secondary thrombocytopenia; I10 Essential (primary) hypertension; Z79.899 Other long term (current) drug therapy; Z90.79 Acquired absence of other genital organ(s); Z80.0 Family history of malignant neoplasm of digestive organs; Z80.42 Family history of malignant neoplasm of prostate; Z87.891 Personal history of nicotine dependence; Z86.19 Personal history of other infectious and parasitic diseases
CPT/HCPCS: 36415; 76705; 78306; 80053; 80202; 81003; 81015; 83605; 85025; 85610; 85730; 86780; 87040; 87070; 87077; 87086; 87186; 87205; 87389; 94760; 96365; 96367; A9503; J0360; J0692; J1200; J2765; J3370; U0003; U0005

== ENCOUNTER 2020-12-28 22:56 | Emergency (ER) | payer MEDICARE ==
[2020-12-29] MEDS ORDERED: Ondansetron PF 4 MG/2 ML Vial ONE (00:02)
[2020-12-29] MEDS ORDERED: Morphine 4 MG/ML VIAL ONE (00:02)
== END 2020-12-29 00:53 | disposition home or self-care (01) ==
LOC: ERS 22:56
DX: M54.5 Low back pain (principal); G89.29 Other chronic pain; C61 Malignant neoplasm of prostate; I10 Essential (primary) hypertension
CPT/HCPCS: 94760; 96374; 96375; J1642; J2270; J2405

== ENCOUNTER 2021-04-10 21:10 | Emergency (ER) | payer MEDICARE ==
[2021-04-10 21:54] LABS: #Eosinphils 0.1 thou/uL (0.0-0.7); #Lymphocytes 1.2 thou/uL (1.20-3.40); #Monocytes 0.5 thou/uL (0.11-0.59); %Basophils 0.2 % (0.0-1.0); %Eosinophils 1.4 % (0.0-10.0); %Lymphocytes 17.8 % (21.0-51.0); %Monocytes 7.8 % (0.0-10.0); %Neutrophils 72.9 % (42.0-75.0); Hemoglobin 15.5 g/dL (14.0-18.0); Mean Corpuscular HGB CONC 36.1 g/dL (32.0-36.0); Mean Corpuscular Hemoglobin 32.8 pg (27.0-31.0); Mean Corpuscular Volume 90.8 fL (78.0-98.0); Mean Platelet Volume 7.2 fL (7.4-10.4); Platelet Count 83 thou/uL (130-400); RBC Distribution Width 13.2 % (11.5-14.5); Red Blood Cell (RBC) Count 4.73 mill/uL (4.70-6.10); White Blood Cell (WBC) Count 6.8 thou/uL (4.8-10.8)
[2021-04-10 22:14] LABS: ALT (SGPT) 10 U/L (8-55); AST (SGOT) 17 U/L (5-34); Albumin 3.9 g/dL (3.4-4.8); Alkaline Phosphatase 65 U/L (40-110); Anion Gap 12 mmol/L (10-20); BUN (Urea Nitrogen) 17 mg/dL (8.4-25.7); Bilirubin, Total 0.6 mg/dL (0.2-1.2); Calc. Creatinine Clearance 0 mL/min (70-130); Calcium 9.5 mg/dL (7.8-10.44); Carbon Dioxide 25 mmol/L (23-31); Chloride 106 mmol/L (98-107); Glucose 160 mg/dL (80-115); Lipase 14 U/L (8-78); Potassium 3.8 mmol/L (3.5-5.1); Protein, Total 6.9 g/dL (5.8-8.1); Sodium 139 mmol/L (136-145)
[2021-04-10 22:37] LABS: Bacteria/HPF 4+ HPF (None Seen); Bilirubin Negative (Negative); Blood, Urine 3+ (Negative); Clarity Turbid (Clear); Glucose, Urine (Dipstick) Normal (Negative); Ketone, Urine Negative (Negative); Leukocyte 500 Leu/uL (Negative); Nitrite 2+ (Negative); Protein, Urine (Dipstick) 200 mg/dL (Neg-Trace); RBC/HPF Greater than 50 HPF (0-3); Renal Epithelial 0-3 HPF (None Seen); Specific Gravity, Urine 1.012 (1.002-1.036); Squamous Epithelial 0-3 HPF (0-3); Urobilinogen Normal mg/dL (Less than 2); WBC/HPF Greater than 50 HPF (0-3)
[2021-04-10] MEDS ORDERED: Morphine 10 MG/ML VIAL ONE (23:25)
[2021-04-11] MEDS ORDERED: Ketorolac Tromethamine 30 MG/ML VIAL ONE (00:45)
== END 2021-04-11 00:55 | disposition home or self-care (01) ==
LOC: ERS 21:10
DX: N39.0 Urinary tract infection, site not specified (principal); K74.60 Unspecified cirrhosis of liver; M85.80 Other specified disorders of bone density and structure, unspecified site; Z85.46 Personal history of malignant neoplasm of prostate; Z85.830 Personal history of malignant neoplasm of bone; Z79.899 Other long term (current) drug therapy; Z79.891 Long term (current) use of opiate analgesic
CPT/HCPCS: 36415; 74176; 80053; 81003; 81015; 83605; 83690; 85025; 87077; 87086; 87186; 96372; J1885; J2270

== ENCOUNTER 2021-04-12 04:18 | Emergency (ER) | payer MEDICARE ==
[2021-04-12 05:16] LABS: #Lymphocytes 1.1 thou/uL (1.20-3.40); #Monocytes 0.6 thou/uL (0.11-0.59); #Neutrophils 5.9 thou/uL (1.40-6.50); %Basophils 0.1 % (0.0-1.0); %Eosinophils 0.6 % (0.0-10.0); %Monocytes 7.3 % (0.0-10.0); Hemoglobin 15.1 g/dL (14.0-18.0); Mean Corpuscular HGB CONC 34.1 g/dL (32.0-36.0); Mean Corpuscular Hemoglobin 30.9 pg (27.0-31.0); Mean Corpuscular Volume 90.7 fL (78.0-98.0); Mean Platelet Volume 8.1 fL (7.4-10.4); Platelet Count 62 thou/uL (130-400); RBC Distribution Width 13.3 % (11.5-14.5); Red Blood Cell (RBC) Count 4.89 mill/uL (4.70-6.10); White Blood Cell (WBC) Count 7.6 thou/uL (4.8-10.8)
[2021-04-12 05:26] LABS: ALT (SGPT) 12 U/L (8-55); AST (SGOT) 17 U/L (5-34); Alkaline Phosphatase 57 U/L (40-110); Anion Gap 13 mmol/L (10-20); BUN (Urea Nitrogen) 19 mg/dL (8.4-25.7); Bilirubin, Total 1.3 mg/dL (0.2-1.2); Calc. Creatinine Clearance 0 mL/min (70-130); Calcium 8.9 mg/dL (7.8-10.44); Carbon Dioxide 22 mmol/L (23-31); Chloride 105 mmol/L (98-107); Globulin 2.6 g/dL (2.4-3.5); Glucose 158 mg/dL (80-115); Potassium 3.6 mmol/L (3.5-5.1); Protein, Total 6.6 g/dL (5.8-8.1); Sodium 136 mmol/L (136-145)
[2021-04-12 05:51] LABS: SARS-CoV-2 NAA Rapid Test Not Detected (NotDetected)
== END 2021-04-12 07:20 | disposition home or self-care (01) ==
LOC: ERS 04:18
DX: R07.89 Other chest pain (principal); R06.00 Dyspnea, unspecified; Z20.822 Contact with and (suspected) exposure to COVID-19; I10 Essential (primary) hypertension; Z79.899 Other long term (current) drug therapy
CPT/HCPCS: 71045; 71275; 80053; 83605; 83880; 84484; 85025; 87040; 87077; 87149 ×2; 87186; 93005; 96374; 96375; 99285; U0002; 36415

== ENCOUNTER 2021-05-24 23:37 | Inpatient (IN) | payer MEDICARE ==
[2021-05-25 00:53] LABS: Mean Corpuscular HGB CONC 34.9 g/dL (32.0-36.0); Mean Corpuscular Hemoglobin 30.8 pg (27.0-31.0); Mean Corpuscular Volume 88.3 fL (78.0-98.0); RBC Distribution Width 13.3 % (11.5-14.5); Red Blood Cell (RBC) Count 4.87 mill/uL (4.70-6.10); White Blood Cell (WBC) Count 7.3 thou/uL (4.8-10.8)
[2021-05-25 01:00] LABS: ALT (SGPT) 15 U/L (8-55); AST (SGOT) 25 U/L (5-34); Albumin 4.1 g/dL (3.4-4.8); Alkaline Phosphatase 88 U/L (40-110); Anion Gap 13 mmol/L (10-20); BUN (Urea Nitrogen) 18 mg/dL (8.4-25.7); Bilirubin, Total 0.8 mg/dL (0.2-1.2); Calc. Creatinine Clearance 0 mL/min (70-130); Calcium 9.2 mg/dL (7.8-10.44); Carbon Dioxide 20 mmol/L (23-31); Chloride 109 mmol/L (98-107); Globulin 2.9 g/dL (2.4-3.5); Glucose 130 mg/dL (80-115); Sodium 138 mmol/L (136-145)
[2021-05-25 01:04] LABS: #Eosinphils 0.1 thou/uL (0.0-0.7); #Lymphocytes 1.4 thou/uL (1.20-3.40); #Monocytes 0.7 thou/uL (0.11-0.59); %Basophils 0.3 % (0.0-1.0); %Eosinophils 1.8 % (0.0-10.0); %Lymphocytes 19.7 % (21.0-51.0); %Monocytes 8.9 % (0.0-10.0); %Neutrophils 69.3 % (42.0-75.0); Mean Platelet Volume 7.7 fL (7.4-10.4); Platelet Count 102 thou/uL (130-400); Platelet Morphology Comment Appears Decreased; RBC Morphology Normal
[2021-05-25 01:22] LABS: CKMB 0.8 ng/mL (0-6.6)
[2021-05-25] MEDS ORDERED: Nitroglycerin 2% Ointment 1 INCH/1 GM Packet ONE (01:24)
[2021-05-25] MEDS ORDERED: Morphine 4 MG/ML VIAL ONE (01:24)
[2021-05-25] MEDS ORDERED: Ondansetron PF 4 MG/2 ML Vial ONE (01:24)
[2021-05-25 05:06] LABS: SARS-CoV-2 NAA Rapid Test Not Detected (NotDetected)
[2021-05-25 05:29] LABS: Troponin I 0.383 ng/mL (< 0.028)
[2021-05-25 07:31] VITALS: BMI 28.3
[2021-05-25] MEDS ORDERED: Nitroglycerin 0.4 MG TAB (25 Tab Bottle) SL PRN (08:43)
[2021-05-25] MEDS ORDERED: Communication Order-Pharmacy FS ONE (08:44)
[2021-05-25] MEDS: Sodium Chloride 0.9% 1,000 ML IV SCH ×2 (08:44→20:14)
[2021-05-25] MEDS ORDERED: Ondansetron ODT 4 MG TAB PO PRN (08:45)
[2021-05-25] MEDS ORDERED: Ondansetron PF 4 MG/2 ML Vial IVP PRN (08:45)
[2021-05-25] MEDS ORDERED: Senokot S 8.6-50 MG TAB PO PRN (08:45)
[2021-05-25] MEDS ORDERED: Calcium Carbonate 500 MG ChewTAB PO PRN (08:45)
[2021-05-25] MEDS ORDERED: Acetaminophen 325 MG TAB PO PRN (08:45)
[2021-05-25] MEDS ORDERED: Morphine 4 MG/ML VIAL SLOW IVP PRN (08:58)
[2021-05-25] MEDS ORDERED: Enoxaparin Sodium 80 MG/0.8 ML SYRINGE SC SCH (09:00)
[2021-05-25] MEDS ORDERED: Famotidine 20 MG TAB PO SCH (09:00)
[2021-05-25] MEDS ORDERED: traMADol HCl 50 MG TAB PO PRN (09:04)
[2021-05-25 09:06] LABS: Troponin I 0.929 ng/mL (< 0.028)
[2021-05-25] MEDS ORDERED: HYDROcodone/Acetaminophen 7.5/325 mg Tablet PO SCH (09:15)
[2021-05-25] MEDS ORDERED: Carvedilol 6.25 MG TAB PO SCH ×2 (09:15→21:00)
[2021-05-25] MEDS ORDERED: Heparin 10,000 UNITS/ 10 ML VIAL SLOW IVP SCH (10:30)
[2021-05-25] MEDS ORDERED: Doxycycline 100 MG CAP PO SCH (10:30)
[2021-05-25 10:32] LABS: Magnesium 1.9 mg/dL (1.6-2.6)
[2021-05-25 10:50] LABS: INR-International Normal Ratio 1.1; PTT 32.5 sec (22.9-36.1); Prothrombin Time 14.3 sec (12.0-14.7)
[2021-05-25 11:09] LABS: CKMB 5.4 ng/mL (0-6.6)
[2021-05-25] MEDS ORDERED: Iopamidol-370 76% 500 ML 1 ML ONE (11:11)
[2021-05-25] MEDS: cefTRIAXone\\ROCEPHIN 2 GM in Sodium Chloride 0.9% 100 ML IVPB SCH (11:43)
[2021-05-25 11:48] LABS: Legionella Urinary Ag Negative (Negative); Strep pneumo Urine Ag NEGATIVE (NEGATIVE)
[2021-05-25] MEDS: Heparin 25,000 units/D5W 500 ML IVPB SCH (12:25)
[2021-05-25] MEDS: HYDROcodone/Acetaminophen 7.5/325 mg Tablet PO SCH ×2 (15:20→20:16)
[2021-05-25] MEDS: Carvedilol 6.25 MG TAB PO SCH (17:31)
[2021-05-25] MEDS: Atorvastatin Calcium 10 MG TAB PO SCH (20:16)
[2021-05-25] MEDS: Aspirin 325 mg Enteric Coated Tablet PO SCH (20:16)
[2021-05-25] MEDS: Doxycycline 100 MG CAP PO SCH (20:17)
[2021-05-25 20:57] LABS: PTT Greater than 250.0 sec (22.9-36.1)
[2021-05-25] MEDS ORDERED: Lisinopril 10 MG TAB PO SCH (21:00)
[2021-05-26 06:23] LABS: ALT (SGPT) 14 U/L (8-55); AST (SGOT) 16 U/L (5-34); Albumin 3.2 g/dL (3.4-4.8); Alkaline Phosphatase 61 U/L (40-110); Anion Gap 12 mmol/L (10-20); BUN (Urea Nitrogen) 14 mg/dL (8.4-25.7); Bilirubin, Total 0.5 mg/dL (0.2-1.2); Calc. Creatinine Clearance 86 mL/min (70-130); Calcium 7.9 mg/dL (7.8-10.44); Carbon Dioxide 21 mmol/L (23-31); Chloride 108 mmol/L (98-107); Globulin 2.6 g/dL (2.4-3.5); Glucose 95 mg/dL (80-115); Magnesium 1.8 mg/dL (1.6-2.6); Potassium 3.9 mmol/L (3.5-5.1); Protein, Total 5.8 g/dL (5.8-8.1); Sodium 137 mmol/L (136-145)
[2021-05-26 06:27] LABS: Critical Call Chem Troponin I RESULT DECREASING
[2021-05-26 06:31] LABS: #Eosinphils 0.1 thou/uL (0.0-0.7); #Lymphocytes 0.7 thou/uL (1.20-3.40); #Monocytes 0.2 thou/uL (0.11-0.59); #Neutrophils 2.2 thou/uL (1.40-6.50); %Basophils 0.3 % (0.0-1.0); %Eosinophils 2.1 % (0.0-10.0); %Lymphocytes 22.5 % (21.0-51.0); %Monocytes 7.5 % (0.0-10.0); %Neutrophils 67.8 % (42.0-75.0); Hemoglobin 12.4 g/dL (14.0-18.0); Mean Corpuscular HGB CONC 33.7 g/dL (32.0-36.0); Mean Corpuscular Hemoglobin 30.8 pg (27.0-31.0); Mean Corpuscular Volume 91.3 fL (78.0-98.0); Mean Platelet Volume 7.6 fL (7.4-10.4); Platelet Count 68 thou/uL (130-400); RBC Distribution Width 13.3 % (11.5-14.5); Red Blood Cell (RBC) Count 4.02 mill/uL (4.70-6.10); White Blood Cell (WBC) Count 3.2 thou/uL (4.8-10.8)
[2021-05-26 06:45] LABS: CKMB 1.5 ng/mL (0-6.6)
[2021-05-26] MEDS: Heparin 25,000 units/D5W 500 ML IVPB SCH (08:01)
[2021-05-26] MEDS: Doxycycline 100 MG CAP PO SCH ×2 (08:37→21:16)
[2021-05-26] MEDS: Carvedilol 6.25 MG TAB PO SCH ×2 (08:38→18:04)
[2021-05-26] MEDS: HYDROcodone/Acetaminophen 7.5/325 mg Tablet PO SCH ×3 (08:39→21:15)
[2021-05-26] MEDS ORDERED: Magnesium 2 GM/50 ML 2 GM in Premix Bag 1 BAG IVPB SCH (10:00)
[2021-05-26] MEDS ORDERED: Polyethylene Glycol 3350 17 GM Packet PO PRN (10:07)
[2021-05-26] MEDS: cefTRIAXone\\ROCEPHIN 2 GM in Sodium Chloride 0.9% 100 ML IVPB SCH (11:26)
[2021-05-26 12:21] LABS: Hemoglobin 12.4 g/dL (14.0-18.0); Platelet Count 60 thou/uL (130-400)
[2021-05-26] MEDS: Senokot S 8.6-50 MG TAB PO SCH (21:15)
[2021-05-26] MEDS: Lisinopril 10 MG TAB PO SCH (21:16)
[2021-05-26] MEDS: Aspirin 325 mg Enteric Coated Tablet PO SCH (21:16)
[2021-05-26] MEDS: Atorvastatin Calcium 10 MG TAB PO SCH (21:16)
[2021-05-27 07:48] LABS: #Eosinphils 0.1 thou/uL (0.0-0.7); #Lymphocytes 0.9 thou/uL (1.20-3.40); #Monocytes 0.3 thou/uL (0.11-0.59); #Neutrophils 1.7 thou/uL (1.40-6.50); %Basophils 1.4 % (0.0-1.0); %Eosinophils 2.4 % (0.0-10.0); %Lymphocytes 29.6 % (21.0-51.0); %Monocytes 10.5 % (0.0-10.0); %Neutrophils 56.1 % (42.0-75.0); Hemoglobin 12.2 g/dL (14.0-18.0); Mean Corpuscular HGB CONC 33.3 g/dL (32.0-36.0); Mean Corpuscular Hemoglobin 29.8 pg (27.0-31.0); Mean Corpuscular Volume 89.7 fL (78.0-98.0); Mean Platelet Volume 7.2 fL (7.4-10.4); Platelet Count 67 thou/uL (130-400); RBC Distribution Width 13.1 % (11.5-14.5); Red Blood Cell (RBC) Count 4.09 mill/uL (4.70-6.10)
[2021-05-27 08:04] LABS: Anion Gap 12 mmol/L (10-20); BUN (Urea Nitrogen) 12 mg/dL (8.4-25.7); CRP (Inflammatory) 2.78 mg/dL (= or < 0.5); Calc. Creatinine Clearance 90 mL/min (70-130); Calcium 8.1 mg/dL (7.8-10.44); Carbon Dioxide 21 mmol/L (23-31); Chloride 109 mmol/L (98-107); Glucose 87 mg/dL (80-115); Potassium 3.8 mmol/L (3.5-5.1); Sodium 138 mmol/L (136-145)
[2021-05-27] MEDS: Senokot S 8.6-50 MG TAB PO SCH ×2 (08:40→20:27)
[2021-05-27] MEDS: Doxycycline 100 MG CAP PO SCH ×2 (08:41→20:26)
[2021-05-27] MEDS: HYDROcodone/Acetaminophen 7.5/325 mg Tablet PO SCH ×3 (08:42→22:11)
[2021-05-27] MEDS: Carvedilol 6.25 MG TAB PO SCH ×2 (08:43→16:32)
[2021-05-27] MEDS: cefTRIAXone\\ROCEPHIN 2 GM in Sodium Chloride 0.9% 100 ML IVPB SCH (10:47)
[2021-05-27] MEDS ORDERED: Potassium Chloride 20 MEQ TAB PO SCH (11:10)
[2021-05-27] MEDS ORDERED: Electrolyte Replacement Protocol 1 EACH FS SCH (16:30)
[2021-05-27] MEDS ORDERED: Electrolyte Replacement Protocol FS PRN (16:30)
[2021-05-27] MEDS: Lisinopril 10 MG TAB PO SCH (20:26)
[2021-05-27] MEDS: Aspirin 325 mg Enteric Coated Tablet PO SCH (20:27)
[2021-05-27] MEDS: Atorvastatin Calcium 10 MG TAB PO SCH (20:27)
[2021-05-28 06:48] LABS: #Eosinphils 0.1 thou/uL (0.0-0.7); #Monocytes 0.2 thou/uL (0.11-0.59); #Neutrophils 1.5 thou/uL (1.40-6.50); %Eosinophils 3.1 % (0.0-10.0); %Lymphocytes 35.1 % (21.0-51.0); %Monocytes 7.8 % (0.0-10.0); %Neutrophils 53.9 % (42.0-75.0); Anion Gap 11 mmol/L (10-20); BUN (Urea Nitrogen) 15 mg/dL (8.4-25.7); Calc. Creatinine Clearance 93 mL/min (70-130); Calcium 8.9 mg/dL (7.8-10.44); Carbon Dioxide 25 mmol/L (23-31); Chloride 109 mmol/L (98-107); Glucose 89 mg/dL (80-115); Hemoglobin 13.3 g/dL (14.0-18.0); Magnesium 2.1 mg/dL (1.6-2.6); Mean Corpuscular HGB CONC 35.4 g/dL (32.0-36.0); Mean Corpuscular Hemoglobin 31.7 pg (27.0-31.0); Mean Corpuscular Volume 89.6 fL (78.0-98.0); Mean Platelet Volume 7.6 fL (7.4-10.4); Platelet Count 63 thou/uL (130-400); Potassium 4.3 mmol/L (3.5-5.1); RBC Distribution Width 13.2 % (11.5-14.5); Red Blood Cell (RBC) Count 4.18 mill/uL (4.70-6.10); Sodium 141 mmol/L (136-145); White Blood Cell (WBC) Count 2.7 thou/uL (4.8-10.8)
[2021-05-28] MEDS: Carvedilol 6.25 MG TAB PO SCH ×2 (08:57→15:59)
[2021-05-28] MEDS: HYDROcodone/Acetaminophen 7.5/325 mg Tablet PO SCH ×2 (08:58→15:59)
[2021-05-28] MEDS: Doxycycline 100 MG CAP PO SCH (08:58)
[2021-05-28] MEDS: Senokot S 8.6-50 MG TAB PO SCH (08:59)
[2021-05-28] MEDS: cefTRIAXone\\ROCEPHIN 2 GM in Sodium Chloride 0.9% 100 ML IVPB SCH (12:07)
[2021-05-28 16:04] VITALS: BP 151/101; TEMP 97.7
== END 2021-05-28 17:45 | disposition home or self-care (01) | DRG 177 ==
LOC: ERS 23:37 → NEURO 05-25 01:58 → OBSVTOIN 05-25 10:23
PROVIDERS: ADMIT Internal Medicine; ATTEND Internal Medicine
DX: J15.6 Pneumonia due to other Gram-negative bacteria (principal); I21.4 Non-ST elevation (NSTEMI) myocardial infarction; J96.01 Acute respiratory failure with hypoxia; C79.51 Secondary malignant neoplasm of bone; D61.818 Other pancytopenia; Z20.822 Contact with and (suspected) exposure to COVID-19; E78.5 Hyperlipidemia, unspecified; I12.9 Hypertensive chronic kidney disease with stage 1 through stage 4 chronic kidney disease, or unspecified chronic kidney disease; K74.60 Unspecified cirrhosis of liver; B19.20 Unspecified viral hepatitis C without hepatic coma; N18.30 Chronic kidney disease, stage 3 unspecified; K21.9 Gastro-esophageal reflux disease without esophagitis; G89.4 Chronic pain syndrome; E83.42 Hypomagnesemia; E87.6 Hypokalemia; Z79.899 Other long term (current) drug therapy; Z85.46 Personal history of malignant neoplasm of prostate; Z90.89 Acquired absence of other organs; Z98.890 Other specified postprocedural states; Z87.891 Personal history of nicotine dependence
CPT/HCPCS: 0240U; 36415; 71046; 71275; 80048; 80053; 82553; 83735; 83880; 84484; 85025; 85379; 85610; 85730; 86140; 87449; 87899; 93005; 93306; 93798; 94640; 96374; 96375; G0378; J0696; J1644; J2270; J2405; J3475; J3490; J7050; J7620; Q9967

== ENCOUNTER 2021-07-05 08:49 | Inpatient (IN) | payer MEDICARE ==
[2021-07-05] MEDS ORDERED: Acetaminophen 500 MG TAB ONE (09:23)
[2021-07-05] MEDS ORDERED: Ondansetron PF 4 MG/2 ML Vial ONE (09:23)
[2021-07-05 09:31] LABS: #Lymphocytes 0.5 thou/uL (1.20-3.40); #Monocytes 0.4 thou/uL (0.11-0.59); #Neutrophils 5.3 thou/uL (1.40-6.50); %Basophils 0.2 % (0.0-1.0); %Eosinophils 0.1 % (0.0-10.0); %Lymphocytes 7.5 % (21.0-51.0); %Monocytes 7.2 % (0.0-10.0); Hemoglobin 13.3 g/dL (14.0-18.0); Mean Corpuscular HGB CONC 33.6 g/dL (32.0-36.0); Mean Corpuscular Hemoglobin 30.4 pg (27.0-31.0); Mean Corpuscular Volume 90.7 fL (78.0-98.0); Mean Platelet Volume 7.9 fL (7.4-10.4); Platelet Count 50 thou/uL (130-400); RBC Distribution Width 13.5 % (11.5-14.5); Red Blood Cell (RBC) Count 4.36 mill/uL (4.70-6.10); White Blood Cell (WBC) Count 6.2 thou/uL (4.8-10.8)
[2021-07-05 09:55] LABS: ALT (SGPT) 8 U/L (8-55); AST (SGOT) 11 U/L (5-34); Albumin 3.5 g/dL (3.4-4.8); Alkaline Phosphatase 63 U/L (40-110); Anion Gap 13 mmol/L (10-20); BUN (Urea Nitrogen) 16 mg/dL (8.4-25.7); Bilirubin, Total 1.1 mg/dL (0.2-1.2); Calc. Creatinine Clearance 0 mL/min (70-130); Calcium 8.3 mg/dL (7.8-10.44); Carbon Dioxide 25 mmol/L (23-31); Chloride 100 mmol/L (98-107); Globulin 2.7 g/dL (2.4-3.5); Glucose 158 mg/dL (80-115); Potassium 3.7 mmol/L (3.5-5.1); Protein, Total 6.2 g/dL (5.8-8.1); Sodium 134 mmol/L (136-145)
[2021-07-05] MEDS ORDERED: Cefepime 2 GM VIAL ONE (10:23)
[2021-07-05] MEDS ORDERED: Vancomycin 1 GM/200 ML BAG ONE (10:23)
[2021-07-05 10:55] LABS: Bilirubin Negative (Negative); Blood, Urine Moderate (Negative); Glucose, Urine (Dipstick) Negative (Negative); Ketone, Urine Negative (Negative); Leukocyte Moderate (Negative); Nitrite Positive (Negative); Protein, Urine (Dipstick) 30 mg/dL (Neg-Trace); Urobilinogen 0.2 mg/dL (Less than 2); pH, Urine 6.5 (5.0-9.0)
[2021-07-05 10:57] LABS: Clarity Cloudy (Clear)
[2021-07-05 11:04] LABS: RBC/HPF 0-3 HPF (0-3); WBC/HPF 21-50 HPF (0-3)
[2021-07-05 11:05] LABS: Bacteria/HPF 3+ HPF (None Seen); Squamous Epithelial 0-3 HPF (0-3)
[2021-07-05 12:01] LABS: SARS-CoV-2 NAA Rapid Test Not Detected (NotDetected)
[2021-07-05 12:24] LABS: CKMB 0.3 ng/mL (0-6.6)
[2021-07-05] MEDS ORDERED: Ondansetron PF 4 MG/2 ML Vial IVP PRN ×2 (12:37→16:14)
[2021-07-05] MEDS ORDERED: HYDROcodone/Acetaminophen 7.5/325 mg Tablet PO PRN ×2 (12:37→20:00)
[2021-07-05] MEDS ORDERED: Ondansetron ODT 4 MG TAB PO PRN (12:37)
[2021-07-05] MEDS ORDERED: Albuterol Sulfate 2.5 mg/3 ml Neb NEB PRN ×2 (12:40→16:14)
[2021-07-05] MEDS ORDERED: Nitroglycerin 0.4 MG TAB (25 Tab Bottle) SL PRN ×2 (12:40→16:14)
[2021-07-05] MEDS ORDERED: Electrolyte Replacement Protocol 1 EACH FS PRN ×2 (12:45→16:13)
[2021-07-05 13:53] LABS: Magnesium 1.7 mg/dL (1.6-2.6)
[2021-07-05] MEDS ORDERED: Magnesium 2 GM/50 ML 2 GM in Premix Bag 1 BAG IVPB SCH ×2 (14:15→18:30)
[2021-07-05] MEDS ORDERED: Vancomycin 1 GM in Premix Bag 1 BAG IVPB SCH ×4 (16:15→22:00)
[2021-07-05] MEDS: Atorvastatin Calcium 10 MG TAB PO SCH (20:52)
[2021-07-05] MEDS: Carvedilol 6.25 MG TAB PO SCH (20:57)
[2021-07-05] MEDS ORDERED: Atorvastatin Calcium 10 MG TAB PO SCH (21:00)
[2021-07-05] MEDS ORDERED: Carvedilol 6.25 MG TAB PO SCH ×3 (21:00)
[2021-07-05] MEDS ORDERED: Benzonatate 100 MG CAP PO PRN (21:41)
[2021-07-05] MEDS: Vancomycin 1 GM in Premix Bag 1 BAG IVPB SCH (22:00)
[2021-07-05] MEDS ORDERED: Cefepime 2 GM in Sodium Chloride 0.9% 100 ML IVPB SCH (23:00)
[2021-07-06] MEDS: Cefepime 2 GM in Sodium Chloride 0.9% 100 ML IVPB SCH ×3 (00:42→22:41)
[2021-07-06] MEDS ORDERED: Loratadine 10 MG TAB PO PRN (07:36)
[2021-07-06] MEDS ORDERED: hydrALAZINE 20 MG/ML VIAL SLOW IVP PRN (07:36)
[2021-07-06] MEDS ORDERED: Zolpidem Tartrate 5 MG TAB PO PRN (07:36)
[2021-07-06] MEDS ORDERED: Loperamide HCl 2 MG CAP PO PRN (07:36)
[2021-07-06] MEDS ORDERED: Calcium Carbonate 500 MG ChewTAB PO PRN (07:36)
[2021-07-06] MEDS ORDERED: Senokot S 8.6-50 MG TAB PO PRN (07:36)
[2021-07-06] MEDS ORDERED: traMADol HCl 50 MG TAB PO SCH (09:00)
[2021-07-06] MEDS: Vancomycin 1 GM in Premix Bag 1 BAG IVPB SCH ×2 (09:28→20:31)
[2021-07-06] MEDS: traMADol HCl 50 MG TAB PO SCH (09:29)
[2021-07-06] MEDS: Carvedilol 6.25 MG TAB PO SCH ×2 (09:31→20:30)
[2021-07-06] MEDS: Furosemide 20 MG/2 ML VIAL SLOW IVP SCH (13:27)
[2021-07-06] MEDS: Ondansetron ODT 4 MG TAB PO PRN (13:33)
[2021-07-06] MEDS: HYDROcodone/Acetaminophen 5/325 mg Tablet PO PRN ×2 (14:58→20:36)
[2021-07-06 15:03] VITALS: BMI 29.4
[2021-07-06] MEDS: Atorvastatin Calcium 10 MG TAB PO SCH (20:30)
[2021-07-07 04:56] LABS: INR-International Normal Ratio 1.1
[2021-07-07] MEDS: Furosemide 20 MG/2 ML VIAL SLOW IVP SCH ×2 (06:20→14:00)
[2021-07-07] MEDS ORDERED: Nystatin Powder 15 GM BOT TOP PRN (07:39)
[2021-07-07] MEDS: traMADol HCl 50 MG TAB PO SCH (08:14)
[2021-07-07] MEDS: Carvedilol 6.25 MG TAB PO SCH ×2 (08:15→21:42)
[2021-07-07] MEDS: Aspirin 81 mg Enteric Coated Tablet PO SCH (08:15)
[2021-07-07 09:31] LABS: Vancomycin, Trough 16.5 ug/mL
[2021-07-07] MEDS: Ondansetron ODT 4 MG TAB PO PRN (10:15)
[2021-07-07] MEDS: Vancomycin 1 GM in Premix Bag 1 BAG IVPB SCH ×2 (10:15→21:42)
[2021-07-07] MEDS: Cefepime 2 GM in Sodium Chloride 0.9% 100 ML IVPB SCH ×2 (11:28→23:50)
[2021-07-07] MEDS: HYDROcodone/Acetaminophen 5/325 mg Tablet PO PRN (17:16)
[2021-07-07] MEDS: Lisinopril 10 MG TAB PO SCH (21:42)
[2021-07-07] MEDS: Atorvastatin Calcium 10 MG TAB PO SCH (21:42)
[2021-07-08 05:53] LABS: ALT (SGPT) 9 U/L (8-55); AST (SGOT) 13 U/L (5-34); Albumin 3.5 g/dL (3.4-4.8); Alkaline Phosphatase 58 U/L (40-110); Anion Gap 4 mmol/L (10-20); BUN (Urea Nitrogen) 12 mg/dL (8.4-25.7); Bilirubin, Total 0.5 mg/dL (0.2-1.2); Calc. Creatinine Clearance 110 mL/min (70-130); Calcium 8.4 mg/dL (7.8-10.44); Carbon Dioxide 37 mmol/L (23-31); Chloride 101 mmol/L (98-107); Globulin 2.9 g/dL (2.4-3.5); Glucose 124 mg/dL (80-115); Magnesium 2.1 mg/dL (1.6-2.6); Phosphorus 2.7 mg/dL (2.3-4.7); Protein, Total 6.4 g/dL (5.8-8.1); Sodium 139 mmol/L (136-145)
[2021-07-08 05:56] LABS: Hemoglobin 13.4 g/dL (14.0-18.0); Mean Corpuscular HGB CONC 33.4 g/dL (32.0-36.0); Mean Corpuscular Hemoglobin 31.1 pg (27.0-31.0); Mean Corpuscular Volume 93.2 fL (78.0-98.0); Mean Platelet Volume 7.7 fL (7.4-10.4); Platelet Count 65 thou/uL (130-400); Potassium 2.8 mmol/L (3.5-5.1); RBC Distribution Width 12.9 % (11.5-14.5)
[2021-07-08] MEDS ORDERED: Morphine 4 MG/ML VIAL SLOW IVP PRN (06:43)
[2021-07-08] MEDS: Furosemide 20 MG/2 ML VIAL SLOW IVP SCH ×2 (06:56→16:54)
[2021-07-08 07:52] LABS: Troponin I 0.013 ng/mL (< 0.028)
[2021-07-08] MEDS ORDERED: Electrolyte Replacement Protocol FS PRN (08:00)
[2021-07-08 08:32] LABS: Band 26 % (5-11); Eosinophils 5 % (0-10); Lymphocytes 5 % (21-51); MDiff Complete? YES; Monocytes 12 % (0-10); Neutrophil 30 % (42-75); Platelet Morphology Comment Appears Decreased; Polychromasia SLIGHT = 2-3 cells (100X) (0-2/hpf); Reactive Lymphocytes 22 % (0-10); Schistocytes SLIGHT = 2-5 cells (100X) (0-1/hpf); Tear Drops SLIGHT = 2-5 cells (100X) (0-1/hpf)
[2021-07-08] MEDS ORDERED: Potassium Chloride 20 MEQ TAB PO SCH ×2 (08:45→16:45)
[2021-07-08] MEDS ORDERED: Magnesium Oxide 400 MG TAB PO SCH (09:00)
[2021-07-08] MEDS ORDERED: Enoxaparin Sodium 40 MG/0.4 ML SYRINGE SC SCH (09:00)
[2021-07-08] MEDS: traMADol HCl 50 MG TAB PO SCH (09:19)
[2021-07-08] MEDS: Aspirin 81 mg Enteric Coated Tablet PO SCH (09:22)
[2021-07-08] MEDS: Carvedilol 6.25 MG TAB PO SCH ×2 (09:22→20:03)
[2021-07-08] MEDS: HYDROcodone/Acetaminophen 5/325 mg Tablet PO PRN (15:59)
[2021-07-08] MEDS: Ondansetron ODT 4 MG TAB PO PRN (16:11)
[2021-07-08] MEDS: Atorvastatin Calcium 10 MG TAB PO SCH (20:04)
[2021-07-08] MEDS: Lisinopril 10 MG TAB PO SCH (20:04)
[2021-07-09] MEDS: HYDROcodone/Acetaminophen 5/325 mg Tablet PO PRN (00:26)
[2021-07-09 05:52] LABS: Anion Gap 26 mmol/L (10-20); BUN (Urea Nitrogen) 17 mg/dL (8.4-25.7); Calc. Creatinine Clearance 104 mL/min (70-130); Calcium 8.6 mg/dL (7.8-10.44); Carbon Dioxide 14 mmol/L (23-31); Chloride 104 mmol/L (98-107); Glucose 146 mg/dL (80-115); Potassium 3.9 mmol/L (3.5-5.1); Sodium 140 mmol/L (136-145)
[2021-07-09] MEDS: Furosemide 20 MG/2 ML VIAL SLOW IVP SCH (06:44)
[2021-07-09 06:53] VITALS: TEMP 97.8
[2021-07-09] MEDS: Aspirin 81 mg Enteric Coated Tablet PO SCH (09:41)
[2021-07-09] MEDS: traMADol HCl 50 MG TAB PO SCH (09:41)
[2021-07-09 09:44] VITALS: BP 115/65
[2021-07-09] MEDS: Carvedilol 6.25 MG TAB PO SCH (09:44)
== END 2021-07-09 12:15 | disposition home health service (06) | DRG 871 ==
LOC: ERS 08:49 → MSONC 12:37 → ERS 13:34 → OBSVTOIN 07-06 11:25
PROVIDERS: ADMIT Internal Medicine; ATTEND Internal Medicine
DX: A41.9 Sepsis, unspecified organism (principal); Z66 Do not resuscitate; Z20.822 Contact with and (suspected) exposure to COVID-19; J96.01 Acute respiratory failure with hypoxia; I50.31 Acute diastolic (congestive) heart failure; J15.6 Pneumonia due to other Gram-negative bacteria; N39.0 Urinary tract infection, site not specified; C79.51 Secondary malignant neoplasm of bone; I13.0 Hypertensive heart and chronic kidney disease with heart failure and stage 1 through stage 4 chronic kidney disease, or unspecified chronic kidney disease; R65.20 Severe sepsis without septic shock; B18.2 Chronic viral hepatitis C; E78.5 Hyperlipidemia, unspecified; F41.9 Anxiety disorder, unspecified; B95.2 Enterococcus as the cause of diseases classified elsewhere; K70.30 Alcoholic cirrhosis of liver without ascites; E66.9 Obesity, unspecified; C61 Malignant neoplasm of prostate; E87.6 Hypokalemia; K21.9 Gastro-esophageal reflux disease without esophagitis; D69.59 Other secondary thrombocytopenia; T45.1X5A Adverse effect of antineoplastic and immunosuppressive drugs, initial encounter; N18.30 Chronic kidney disease, stage 3 unspecified; G89.4 Chronic pain syndrome; Z80.0 Family history of malignant neoplasm of digestive organs; Z80.42 Family history of malignant neoplasm of prostate; Z87.891 Personal history of nicotine dependence; I25.2 Old myocardial infarction; Z79.899 Other long term (current) drug therapy; Z79.82 Long term (current) use of aspirin
CPT/HCPCS: 36415; 71045; 71250; 74176; 80048; 80053; 80202; 81003; 81015; 82553; 83605; 83735; 83880; 84100; 84484; 85025; 85610; 87040; 87077; 87086; 87186; 93005; 93010; 93306; 96365; 96366; 96367; 96375; 96376; G0378; J0692; J1940; J2405; J3370; J3475; J3490; Q0162; U0002

== ENCOUNTER 2021-07-19 11:12 | Inpatient (IN) | payer MEDICARE ==
[2021-07-19 11:50] LABS: #Eosinphils 0.1 thou/uL (0.0-0.7); #Lymphocytes 1.6 thou/uL (1.20-3.40); #Monocytes 0.4 thou/uL (0.11-0.59); #Neutrophils 3.5 thou/uL (1.40-6.50); %Basophils 0.1 % (0.0-1.0); %Eosinophils 1.9 % (0.0-10.0); %Lymphocytes 28.5 % (21.0-51.0); %Monocytes 7.8 % (0.0-10.0); %Neutrophils 61.8 % (42.0-75.0); Hemoglobin 14.7 g/dL (14.0-18.0); Mean Corpuscular HGB CONC 34.1 g/dL (32.0-36.0); Mean Corpuscular Hemoglobin 31.5 pg (27.0-31.0); Mean Corpuscular Volume 92.5 fL (78.0-98.0); Mean Platelet Volume 8.2 fL (7.4-10.4); Platelet Count 88 thou/uL (130-400); RBC Distribution Width 13.7 % (11.5-14.5); Red Blood Cell (RBC) Count 4.67 mill/uL (4.70-6.10); White Blood Cell (WBC) Count 5.6 thou/uL (4.8-10.8)
[2021-07-19 12:02] LABS: INR-International Normal Ratio 1.1; PTT 25.6 sec (22.9-36.1); Prothrombin Time 14.1 sec (12.0-14.7)
[2021-07-19 12:07] LABS: ALT (SGPT) 7 U/L (8-55); AST (SGOT) 22 U/L (5-34); Albumin 3.9 g/dL (3.4-4.8); Alkaline Phosphatase 81 U/L (40-110); Anion Gap 15 mmol/L (10-20); BUN (Urea Nitrogen) 28 mg/dL (8.4-25.7); Bilirubin, Total 1.2 mg/dL (0.2-1.2); Calc. Creatinine Clearance 0 mL/min (70-130); Calcium 8.7 mg/dL (7.8-10.44); Carbon Dioxide 23 mmol/L (23-31); Chloride 105 mmol/L (98-107); Glucose 124 mg/dL (80-115); Potassium 3.8 mmol/L (3.5-5.1); Protein, Total 6.9 g/dL (5.8-8.1); Sodium 139 mmol/L (136-145)
[2021-07-19 12:19] LABS: Bilirubin Negative (Negative); Blood, Urine Trace (Negative); Clarity Clear (Clear); Glucose, Urine (Dipstick) Normal (Negative); Ketone, Urine Negative (Negative); Leukocyte 500 Leu/uL (Negative); Nitrite Negative (Negative); Protein, Urine (Dipstick) 10 mg/dL (Neg-Trace); Specific Gravity, Urine 1.015 (1.002-1.036); Squamous Epithelial 0-3 HPF (0-3); Urobilinogen Normal mg/dL (Less than 2); WBC/HPF 21-50 HPF (0-3); pH, Urine 6.5 (5.0-9.0)
[2021-07-19 12:33] LABS: Bacteria/HPF 1+ HPF (None Seen); Yeast-Budding 2+ HPF (None Seen); Yeast-Hyphae 2+ HPF (None Seen)
[2021-07-19 13:04] LABS: SARS-CoV-2 NAA Rapid Test Not Detected (NotDetected)
[2021-07-19] MEDS ORDERED: Cefepime 2 GM VIAL ONE (13:07)
[2021-07-19] MEDS ORDERED: Vancomycin 1 GM/200 ML BAG ONE (13:52)
[2021-07-19 15:23] LABS: Troponin I 0.275 ng/mL (< 0.028)
[2021-07-19] MEDS ORDERED: Ondansetron PF 4 MG/2 ML Vial IVP PRN (16:45)
[2021-07-19] MEDS ORDERED: Ondansetron ODT 4 MG TAB SL PRN (16:45)
[2021-07-19] MEDS ORDERED: Acetaminophen 325 MG TAB PO PRN (16:45)
[2021-07-19 17:40] VITALS: BMI 28.8
[2021-07-19 18:05] LABS: Troponin I 0.266 ng/mL (< 0.028)
[2021-07-19] MEDS: HYDROcodone/Acetaminophen 7.5/325 mg Tablet PO PRN (18:12)
[2021-07-19] MEDS: Azithromycin 500 MG in Sodium Chloride 0.9% 250 ML 250 ML IVPB SCH (18:13)
[2021-07-19] MEDS: Atorvastatin Calcium 10 MG TAB PO SCH (20:24)
[2021-07-19] MEDS ORDERED: cefTRIAXone\\ROCEPHIN 1 GM in Sodium Chloride 0.9% 100 ML IVPB SCH (21:00)
[2021-07-20] MEDS: HYDROcodone/Acetaminophen 7.5/325 mg Tablet PO PRN ×2 (00:26→18:00)
[2021-07-20] MEDS: Cefepime 2 GM in Sodium Chloride 0.9% 100 ML IVPB SCH ×2 (00:27→12:16)
[2021-07-20 08:28] LABS: #Eosinphils 0.1 thou/uL (0.0-0.7); #Lymphocytes 0.9 thou/uL (1.20-3.40); #Monocytes 0.3 thou/uL (0.11-0.59); #Neutrophils 1.9 thou/uL (1.40-6.50); %Basophils 0.3 % (0.0-1.0); %Eosinophils 1.9 % (0.0-10.0); %Lymphocytes 28.2 % (21.0-51.0); %Neutrophils 60.6 % (42.0-75.0); Hemoglobin 12.6 g/dL (14.0-18.0); Mean Corpuscular HGB CONC 33.1 g/dL (32.0-36.0); Mean Corpuscular Hemoglobin 31.3 pg (27.0-31.0); Mean Corpuscular Volume 94.6 fL (78.0-98.0); Mean Platelet Volume 8.1 fL (7.4-10.4); Platelet Count 45 thou/uL (130-400); RBC Distribution Width 13.4 % (11.5-14.5); Red Blood Cell (RBC) Count 4.04 mill/uL (4.70-6.10); White Blood Cell (WBC) Count 3.2 thou/uL (4.8-10.8)
[2021-07-20] MEDS: Aspirin 81 mg Enteric Coated Tablet PO SCH (08:34)
[2021-07-20] MEDS: Saccharomyces boulardii 250 MG CAP PO SCH (08:34)
[2021-07-20] MEDS: traMADol HCl 50 MG TAB PO SCH (08:34)
[2021-07-20 08:45] LABS: Anion Gap 13 mmol/L (10-20); BUN (Urea Nitrogen) 21 mg/dL (8.4-25.7); Calc. Creatinine Clearance 100 mL/min (70-130); Calcium 8.2 mg/dL (7.8-10.44); Carbon Dioxide 21 mmol/L (23-31); Chloride 110 mmol/L (98-107); Glucose 111 mg/dL (80-115); Potassium 3.6 mmol/L (3.5-5.1); Sodium 140 mmol/L (136-145)
[2021-07-20] MEDS: Ondansetron PF 4 MG/2 ML Vial IVP PRN (13:32)
[2021-07-20] MEDS: Azithromycin 500 MG in Sodium Chloride 0.9% 250 ML 250 ML IVPB SCH (19:03)
[2021-07-20] MEDS: Atorvastatin Calcium 10 MG TAB PO SCH (20:35)
[2021-07-21] MEDS: Cefepime 2 GM in Sodium Chloride 0.9% 100 ML IVPB SCH ×2 (00:53→13:12)
[2021-07-21] MEDS: HYDROcodone/Acetaminophen 7.5/325 mg Tablet PO PRN ×2 (00:53→13:11)
[2021-07-21 04:40] LABS: #Eosinphils 0.1 thou/uL (0.0-0.7); #Lymphocytes 0.9 thou/uL (1.20-3.40); #Monocytes 0.4 thou/uL (0.11-0.59); #Neutrophils 2.5 thou/uL (1.40-6.50); %Basophils 0.5 % (0.0-1.0); %Eosinophils 2.1 % (0.0-10.0); %Lymphocytes 22.6 % (21.0-51.0); %Monocytes 9.4 % (0.0-10.0); %Neutrophils 65.4 % (42.0-75.0); Hemoglobin 13.1 g/dL (14.0-18.0); Mean Corpuscular HGB CONC 33.8 g/dL (32.0-36.0); Mean Corpuscular Hemoglobin 31.6 pg (27.0-31.0); Mean Corpuscular Volume 93.3 fL (78.0-98.0); Mean Platelet Volume 8.1 fL (7.4-10.4); Platelet Count 51 thou/uL (130-400); RBC Distribution Width 13.2 % (11.5-14.5); Red Blood Cell (RBC) Count 4.15 mill/uL (4.70-6.10); White Blood Cell (WBC) Count 3.8 thou/uL (4.8-10.8)
[2021-07-21 04:55] LABS: Anion Gap 10 mmol/L (10-20); BUN (Urea Nitrogen) 15 mg/dL (8.4-25.7); Calc. Creatinine Clearance 112 mL/min (70-130); Calcium 8.4 mg/dL (7.8-10.44); Carbon Dioxide 22 mmol/L (23-31); Chloride 113 mmol/L (98-107); Glucose 105 mg/dL (80-115); Potassium 3.4 mmol/L (3.5-5.1); Sodium 142 mmol/L (136-145)
[2021-07-21] MEDS: traMADol HCl 50 MG TAB PO SCH (09:21)
[2021-07-21] MEDS: Saccharomyces boulardii 250 MG CAP PO SCH (09:22)
[2021-07-21] MEDS: Potassium Bicarbonate/Cit Ac 20 MEQ TAB PO SCH ×2 (09:22→11:28)
[2021-07-21] MEDS: Aspirin 81 mg Enteric Coated Tablet PO SCH (09:22)
[2021-07-21] MEDS: Carvedilol 3.125 MG TAB PO SCH ×2 (09:22→16:20)
[2021-07-21] MEDS: Ondansetron PF 4 MG/2 ML Vial IVP PRN (11:28)
[2021-07-21 15:34] VITALS: BP 121/74; TEMP 98
[2021-07-21] MEDS ORDERED: Fluconazole 100 MG TAB PO SCH (16:00)
[2021-07-21] MEDS: Azithromycin 500 MG in Sodium Chloride 0.9% 250 ML 250 ML IVPB SCH (16:46)
[2021-07-22] MEDS ORDERED: Fluconazole 100 MG TAB PO SCH (09:00)
[2021-07-22] MEDS ORDERED: FLU VACC QS2021-22(6MOS UP)/PF 60 MCG/0.5 ML SYRINGE IM ONE (17:45)
[2021-07-22] MEDS ORDERED: Prevnar 13-Val Conj/PF 0.5 ML SYRINGE IM ONE (17:45)
== END 2021-07-21 18:23 | disposition home health service (06) | DRG 917 ==
LOC: ERS 11:12 → ERHOLD 14:13 → 2NO 16:33
PROVIDERS: ADMIT Internal Medicine; ATTEND Hospitalist
DX: T50.1X1A Poisoning by loop [high-ceiling] diuretics, accidental (unintentional), initial encounter (principal); J18.9 Pneumonia, unspecified organism; I21.A1 Myocardial infarction type 2; I50.32 Chronic diastolic (congestive) heart failure; B37.49 Other urogenital candidiasis; N17.9 Acute kidney failure, unspecified; C79.51 Secondary malignant neoplasm of bone; I95.2 Hypotension due to drugs; Z20.822 Contact with and (suspected) exposure to COVID-19; K74.60 Unspecified cirrhosis of liver; I10 Essential (primary) hypertension; F41.9 Anxiety disorder, unspecified; B18.2 Chronic viral hepatitis C; K21.9 Gastro-esophageal reflux disease without esophagitis; I11.0 Hypertensive heart disease with heart failure; E78.5 Hyperlipidemia, unspecified; G89.4 Chronic pain syndrome; T50.1X5A Adverse effect of loop [high-ceiling] diuretics, initial encounter; E86.1 Hypovolemia; C61 Malignant neoplasm of prostate; Z90.79 Acquired absence of other genital organ(s); Z98.890 Other specified postprocedural states; Z79.899 Other long term (current) drug therapy; Z79.82 Long term (current) use of aspirin; Z87.440 Personal history of urinary (tract) infections; Z80.42 Family history of malignant neoplasm of prostate; Z80.0 Family history of malignant neoplasm of digestive organs; Z87.891 Personal history of nicotine dependence; Z90.49 Acquired absence of other specified parts of digestive tract; Z92.21 Personal history of antineoplastic chemotherapy
CPT/HCPCS: 36415; 71045; 76770; 80048; 80053; 81003; 81015; 82553; 83605; 83880; 84145; 84484; 85025; 85610; 85730; 87040; 87070; 87086; 87205; 87633; 93005; 94760; 96365; 96367; J0456; J0692; J0696; J2405; J3370; J3490; J7050; Q0162; U0002